=== PATIENT | female | born 1975 | race Caucasian/White ===

== ENCOUNTER 2022-01-16 10:25 | Emergency (ER) | payer MEDICAID, SELFPAY ==
[2022-01-16 10:32] VITALS: BP 118/74; PULSE 92; RESP 20; TEMP 36.4; O2SAT 96; BMI 26.5
[2022-01-16 11:05] VITALS: BP 133/82
--- NOTE | 2022-01-16 11:10 | ED_ITS ---
HPI - General Adult General Time Seen by Provider: 11:10 Date Seen: 01/16/22 Chief complaint: GI Bleed Stated complaint: Anal bleeding Time Seen by Provider: 01/16/22 11:07 Source: patient, RN notes reviewed and old records reviewed Mode of arrival: ambulatory Limitations: no limitations History of Present Illness HPI narrative: Brittanie is a 46-year-old female coming into the ER with some dark reddish to brownish blood with wiping. She thinks it might be vaginally but is not sure. She has had a history of GI bleeding twice. In January of 2021 she had a GI bleed at the site of her [place] 2 gastrojejunostomy, went to [place]. She reports she had a no other head GI bleed in May of 2021 and went to [place]. She states she almost for mom 1 of these GI bleeds. She has chronic abdominal pain, has not noticed any increase in abdominal pain. She is just noticed this with wiping a couple times today. She had not had a period for 4 years. No urinary symptoms otherwise outside of urinary frequency from her diuretic. She has not defecated today. This is been minimal bleeding with wiping, no excessive bleeding, no staining of underwear or anything at this time. 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 She is not on any blood thinners, states she has been told not to take any. In patients clinic records, menorrhagia with heavy irregular periods as noted. She also reportedly has a history of multiple leiomyomas. She has seen women's health before. However, she states she has not had a menstrual cycle in about 4 years. Note last imaging I see here in our records is a CT abdomen and pelvis with IV contrast dated 09/05/2021. The findings were postoperative changes of the stomach and pancreas, postoperative changes of a splenectomy and cholecystectomy. Minimal ascites, significantly decreased since the previous exam. This imaging was done for left upper quadrant pain. MD complaint: Bleeding, vaginal versus rectal? Onset (ago): hour(s) Related Data Home Medications Medication Instructions Recorded Confirmed aripiprazole 20 mg tablet (Abilify) 20 mg PO QDAY 12/16/21 01/16/22 furosemide 20 mg tablet (Lasix) 20 mg PO QDAY 12/16/21 01/16/22 gabapentin 300 mg capsule 600 mg PO TID 12/16/21 01/16/22 pantoprazole 40 mg tablet,delayed 40 mg PO QDAY 12/16/21 01/16/22 release (Protonix) temazepam 15 mg capsule 15 mg PO .hs 12/16/21 01/16/22 Abilify 01/16/22 Previous Rx's Medication Instructions Recorded spironolactone 50 mg tablet 100 mg PO QDAY #60 tabs 12/29/21 nuxahr-kfkxvjeu-pesalsk 3 cap PO TID #300 caps 01/06/22 12,000-38,000-60,000 unit capsule,delayed rel (Creon) hydrocodone 5 mg-acetaminophen 325 1 tab PO BID PRN pain #60 tabs 01/13/22 mg tablet Allergies Allergy/AdvReac Type Severity Reaction Status Date / Time aspirin Allergy Intermediate GI bleed Verified 01/16/22 10:43 lidocaine Allergy Mild itch Verified 01/16/22 10:43 melatonin Allergy Mild Unknown Verified 01/16/22 10:43 trazodone Allergy Mild Unknown Verified 01/16/22 10:43 Review of Systems Status of ROS: Reports: 10 or more systems reviewed and unremarkable except as noted in History and below [facility] Medical History (Updated 01/16/22 @ 14:23 by Mary Otero MD) Acute GI bleeding Chronic abdominal pain Cirrhosis Hepatitis C infection Pancreatic cancer Surgical History (Updated 01/16/22 @ 14:23 by Mary Otero MD) H/O hernia repair History of pancreatectomy History of tonsillectomy History of tubal ligation Hx of tympanostomy tubes Social History Smoking Status: Current every day smoker Do you use any of these nicotine containing products: E-Cigarettes and Vaping Products Second hand tobacco smoke exposure: No How often do you have a drink containing alcohol: never How often do you have six or more drinks on one occasion: Never AUDIT-C Alcohol total score: 0 Non-prescribed substance use: denies use Exam Const: Vital Signs, click to edit/add: Vital Signs - 24 hr 01/16/22 10:32 01/16/22 11:05 08/07/22 12:33 Temperature 97.5 F L Pulse Rate [Right Pulse Oximeter] 92 76 Respiratory Rate 20 Blood Pressure [Ri ght Upper Arm] 118/74 133/82 124/81 Pulse Oximetry 96 95 Oxygen Delivery Me thod Room Air Room Air 01/16/22 14:06 01/16/22 11:40 Temperature Pulse Rate [Right Pulse Oximeter] 84 Respiratory Rate Blood Pressure [Ri ght Upper Arm] 137/74 Pulse Oximetry 97 Oxygen Delivery Me thod Room Air Documenting provider has reviewed patient's vital signs: yes Common normals: no apparent distress, average body habitus, oriented x3, no limitations, healthy appearing and alert General appearance: cooperative and comfortable HENMT: Common normals: normocephalic, head/scalp atraumatic, hearing grossly normal bilaterally, external ears normal, external nose normal, nasal mucous membranes and turbinates normal, moist oral mucous membranes, oropharynx normal and dentition normal Head and scalp: normocephalic and atraumatic Nose: external nose normal and nasal mucous membranes and turbinates normal External ear: external ears normal Eye: Common normals: PERRL, EOMs intact bilaterally, conjunctivae normal and no scleral icterus Conjunctiva: conjunctiva(e) normal Pupil: PERRL Neck & C-Spine: Common normals: full ROM, no lymphadenopathy, supple, no meningeal signs, no JVD and thyroid normal Thyroid: thyroid normal Lymph: Lymphatic: no lymphadenopathy noted and no lymphedema noted Resp: Common normals: normal respiratory effort, no retractions, no use of accessory muscles and clear to auscultation bilaterally Auscultation: clear to auscultation bilaterally Cardio: Common normals: no JVD, regular rate, regular rhythm ([place] ectopy initially but then regular after), S1 normal heart sound, S2 normal heart sound, no gallops, no clicks, no murmurs and no rub Rate: regular rate Rhythm: regular rhythm ([place] ectopy initially but then regular after) Heart sounds: S1 normal and S2 normal GI: Common normals: Normal to inspection, nondistended, normoactive bowel sounds present, soft to palpation, non-tender, no hepatosplenomegaly and no masses Palpation: soft and no hepatosplenomegaly : Common normals: bimanual exam normal (Other than dark blood on gloved finger) External Female Exam: normal appearance of the urethra and abnormal introitus (Dark blood noted at vaginal introitus) Bimanual exam- vagina & uterus: normal bimanual exam (Other than dark blood on gloved finger) Other: Inspection of the anus reveals no abnormality. Digital rectal exam reveals no palpable mass, negative guaiac Extremity: Common normals: normal to inspection, full ROM, normal capillary refill, no joint enlargement, no clubbing, cyanosis or edema, no calf tenderness and no pedal edema Neuro: Common normals: oriented x3 Sensorium/orientation: alert Meningeal signs: no meningeal signs Speech: speech normal Gait (neuro): normal gait Course Course Hospital Course: Reviewed with patient that we will certainly be checking her hemoglobin. We have discussed that this source appears to be vaginal and we will be obtaining pelvic ultrasound to better differentiate any pathology. If the pelvic ultrasound is normal, will guide her to OB Gyne outpatient if she remains stable here. Otherwise given her cirrhosis, will be getting up-to-date blood work including hemoglobin, will do a type and screen. I will look at her PT and PTT to see how her coagulation function through the liver is. This is apparently a uterine bleeding and need to differentiate possible etiologies which includes further evaluation with an endometrial biopsy possibly at some point. Has not done emergently through the ER but will make sure that this patient has appropriate plan in place depending on what we find with her labs and ultrasound as well as her stability through time here. Reevaluation(s) Reevaluation #1: Have given patient a copy of the ultrasound report. Have discussed with her that there are endometrial changes that are concerning here. She most definitely will require Ob Gyne follow-up in an endometrial biopsy. She will see if she can get into her primary care provider Dr. Cortes or OB Gyne 1st. Reviewed with her that Dr. Cortes might actually do this procedure and would contact his office 1st. Time: 13:52 Vital Signs Vital signs: Initial Vital Signs Temperature 97.5 F L 01/16/22 10:32 Temperature Source Temporal Artery Scan 01/16/22 10:32 Pulse Rate 92 01/16/22 10:32 Respiratory Rate 20 01/16/22 10:32 Blood Pressure 118/74 01/16/22 10:32 Blood Pressure Mean 88 01/16/22 10:32 Blood Pressure Position Sitting 01/16/22 10:32 Pulse Oximetry 96 08/07/22 10:32 Oxygen Delivery Method 01/16/22 10:32 Vital Signs Temperature 97.5 F L 01/16/22 10:32 Pulse Rate 92 01/16/22 10:32 Respiratory Rate 20 01/16/22 10:32 Blood Pressure 118/74 01/16/22 10:32 Pulse Oximetry 96 01/16/22 10:32 Oxygen Delivery Method 01/16/22 10:32 Temperature 97.5 F L 01/16/22 10:32 Pulse Rate 84 01/16/22 14:06 Respiratory Rate 20 01/16/22 10:32 Blood Pressure 124/81 01/16/22 12:33 Pulse Oximetry 97 01/16/22 14:06 Oxygen Delivery Method 01/16/22 14:06 Medical Decision Making Lab Data Lab results reviewed: Yes I reviewed the patient's lab results Labs: Lab Results 01/16/22 01/16/22 01/16/22 Range/Units 11:20 11:40 11:40 WBC 13.03 H (4.50-11.00) K/uL RBC 3.90 L (4.00-5.20) m/uL Hgb 11.5 L (12.0-16.0) gm/dL Hct 35.1 (33.0-51.0) % MCV 90 (80-100) fL MCH 30 (26-34) pg MCHC 33 (32-36) gm/dL RDW Coeff of Fabio 14.8 (11.5-15.5) % Plt Count 391 (140-440) K/uL Neut % (Auto) 69.4 (42.0-72.0) % Lymph % (Auto) 21.6 (20-44) % Collier % (Auto) 7.3 (0.0-11.0) % Eos % (Auto) 1.2 (0.0-7.0) % Baso % (Auto) 0.3 (0.0-3.0) % Neut # (Auto) 9.00 H (1.7-7.0) K/uL Lymph # (Auto) 2.80 (0.90-2.90) K/uL Collier # (Auto) 1.00 H (0.00-0.90) K/UL Eos # (Auto) 0.20 (0.00-0.50) K/uL Baso # (Auto) 0.00 (0.00-0.30) K/uL Abs Immat Gran (auto) 0.02 (0.00-0.30) K/uL INR 1.00 (0.91-1.10) APTT 27 (23-33) Seconds Sodium (135-149) mmol/L Potassium (3.6-5.1) mmol/L Chloride (96-114) mmol/L Carbon Dioxide (20-32) mmol/L BUN (5-24) mg/dL Creatinine (0.5-1.5) mg/dL Estimated Creat Clear Estimated GFR ml/min Glucose (60-115) mg/dL Calcium (8.4-10.6) mg/dL Total Bilirubin (0.1-1.5) mg/dL AST (12-35) U/L ALT (4-35) U/L Alkaline Phosphatase (40-150) U/L Total Protein (6.0-8.3) g/dL Albumin (3.3-5.0) g/dL HCG, Qual (Negative) SARS-CoV-2 (PCR) Negative SARS-CoV-2 (Negative) Blood Type Antibody Screen 01/16/22 01/16/22 01/16/22 Range/Units 11:40 11:40 11:40 WBC (4.50-11.00) K/uL RBC (4.00-5.20) m/uL Hgb (12.0-16.0) gm/dL Hct (33.0-51.0) % MCV (80-100) fL MCH (26-34) pg MCHC (32-36) gm/dL RDW Coeff of Fabio (11.5-15.5) % Plt Count (140-440) K/uL Neut % (Auto) (42.0-72.0) % Lymph % (Auto) (20-44) % Collier % (Auto) (0.0-11.0) % Eos % (Auto) (0.0-7.0) % Baso % (Auto) (0.0-3.0) % Neut # (Auto) (1.7-7.0) K/uL Lymph # (Auto) (0.90-2.90) K/uL Collier # (Auto) (0.00-0.90) K/UL Eos # (Auto) (0.00-0.50) K/uL Baso # (Auto) (0.00-0.30) K/uL Abs Immat Gran (auto) (0.00-0.30) K/uL INR (0.91-1.10) APTT (23-33) Seconds Sodium 136 (135-149) mmol/L Potassium 3.7 (3.6-5.1) mmol/L Chloride 103 (96-114) mmol/L Carbon Dioxide 26 (20-32) mmol/L BUN 18 (5-24) mg/dL Creatinine 0.8 (0.5-1.5) mg/dL Estimated Creat Clear 68.76 Estimated GFR 91 ml/min Glucose 108 (60-115) mg/dL Calcium 8.8 (8.4-10.6) mg/dL Total Bilirubin 0.5 (0.1-1.5) mg/dL AST 34 (12-35) U/L ALT 28 (4-35) U/L Alkaline Phosphatase 168 H (40-150) U/L Total Protein 7.1 (6.0-8.3) g/dL Albumin 4.1 (3.3-5.0) g/dL HCG, Qual Negative (Negative) SARS-CoV-2 (PCR) (Negative) Blood Type O Positive Antibody Screen NEGATIVE Imaging Data US - abdomen: Attestation: I have reviewed the pertinent imaging results. Radiologist's impression: Patient: [facility] Facility:?[facility] Patient ID:?[id number] Site Patient ID:?[id number]. Site :?[id number] Study:?US Pelvis -01/16/2022 12:43:15 PM Ordering Physician:?Branden Hernandez Final Report: INDICATION: Postmenopausal bleeding. TECHNIQUE: Ultrasound pelvis transvaginal for better assessment or to better visualize the endometrium. Real-time sonographic images with spectral and color Doppler imaging of the ovaries were obtained. COMPARISON: None. FINDINGS: Uterus: The uterus was not measured. Fundal lesion measures 2.5 x 2.8 x 2.9 cm and anterior lesion measures 3 x 2.7 x 1.6 cm, likely sub serosal fibroids. Endometrium: Transvaginal imaging was performed to better evaluate the endometrium. Endometrial thickness measures 8 mm. The endometrium is heterogeneous and show cystic changes. Ovaries: The right ovary measures 2.2 x 1.4 x 1.3 cm and left ovary was not seen. No ovarian or adnexal masses. Normal arterial and venous blood flow in the right ovary. Cul-de-sac: No significant free fluid. IMPRESSION: 1. The endometrial stripe is abnormally thickened and heterogeneous with cystic changes. These changes can be the result of tamoxifen use, but could also indicate endometrial hyperplasia or malignancy. Consider correlation with direct endometrial sampling, if not already performed. 2. Normal right ovary. The left ovary was not seen. Dictated by Terrence Mcintosh MD @ 01/16/2022 1:37:10 PM (Electronic Signature) Discharge Plan Discharge Clinical Impression: Abnormal vaginal bleeding in postmenopausal patient Condition: Stable Instructions: Abnormal (Dysfunctional) Uterine Bleeding (ED) Additional Instructions: Need to talk to Dr. Cortes is office tomorrow to see if he does endometrial biopsy, if not, he will need to get scheduled with OB Gyne. You need to have an endometrial biopsy done. If her bleeding should start to become heavy, going to greater than a maxi pad an hour for greater than 2 hours, are becoming symptomatic due to heavy bleeding such is lightheadedness/shortness of breath, excessive weakness, do need to be re-evaluated. Activity Level: Activity as Tolerated Prescriptions: No Action Abilify gabapentin 300 mg capsule 600 mg PO TID aripiprazole [Abilify] 20 mg tablet 20 mg PO QDAY furosemide [Lasix] 20 mg tablet 20 mg PO QDAY Hold Instructions: hurt stomach per pt pantoprazole [Protonix] 40 mg tablet,delayed release (DR/EC) 40 mg PO QDAY temazepam 15 mg capsule 15 mg PO .hs spironolactone 50 mg tablet 100 mg PO QDAY Qty: 60 5RF Creon 12,000-38,000 -60,000 unit capsule,delayed release(DR/EC) 3 cap PO TID Qty: 300 10RF Rx Instructions: 2-3 tablets, administer with meals and/or snacks hydrocodone-acetaminophen 5-325 mg tablet 1 tab PO BID PRN (Reason: pain) Qty: 60 0RF Follow Up/Referrals: Efrain Cortes MD [Primary Care Provider] - Stand Alone Forms: [employer] Info Instructions
--- NOTE | 2022-01-16 11:23 | CRLHL7_ITS ---
For Patients: As a result of the Century Cures Act, medical imaging exams and procedure reports are released immediately into your electronic medical record. You may view this report before your referring provider. If you have questions, please contact your health care provider. INDICATION: Postmenopausal bleeding. TECHNIQUE: Ultrasound pelvis transvaginal for better assessment or to better visualize the endometrium. Real-time sonographic images with spectral and color Doppler imaging of the ovaries were obtained. COMPARISON: None. FINDINGS: Uterus: The uterus was not measured. Fundal lesion measures 2.5 x 2.8 x 2.9 cm and anterior lesion measures 3 x 2.7 x 1.6 cm, likely sub serosal fibroids. Endometrium: Transvaginal imaging was performed to better evaluate the endometrium. Endometrial thickness measures 8 mm. The endometrium is heterogeneous and show cystic changes. Ovaries: The right ovary measures 2.2 x 1.4 x 1.3 cm and left ovary was not seen. No ovarian or adnexal masses. Normal arterial and venous blood flow in the right ovary. Cul-de-sac: No significant free fluid. IMPRESSION: 1. The endometrial stripe is abnormally thickened and heterogeneous with cystic changes. These changes can be the result of tamoxifen use, but could also indicate endometrial hyperplasia or malignancy. Consider correlation with direct endometrial sampling, if not already performed. 2. Normal right ovary. The left ovary was not seen. Dictated by Terrence Mcintosh MD @ 01/16/2022 1:37:10 PM (Electronically Signed)
[2022-01-16 11:40] VITALS: BP 137/74
[2022-01-16 11:46] LABS: Basophils Percent Auto 0.3 % (0.0-3.0); Eosinophils Percent Auto 1.2 % (0.0-7.0); Hematocrit 35.1 % (33.0-51.0); Hemoglobin* 11.5 gm/dL (12.0-16.0); Immature Granulocytes Abs Auto 0.02 K/uL (0.00-0.30); Lymphocytes Percent Auto 21.6 % (20-44); Mean Corpuscular HGB Conc 33 gm/dL (32-36); Mean Corpuscular Hemoglobin 30 pg (26-34); Mean Corpuscular Volume 90 fL (80-100); Monocytes Percent Auto 7.3 % (0.0-11.0); Neutrophils Percent Auto 69.4 % (42.0-72.0); Platelet Count* 391 K/uL (140-440); RDW Coefficient of Variation % 14.8 % (11.5-15.5); White Blood Count* 13.03 K/uL (4.50-11.00)
[2022-01-16 11:48] LABS: Slide Review Reflex No
[2022-01-16 12:01] LABS: Albumin* 4.1 g/dL (3.3-5.0); Chloride* 103 mmol/L (96-114); Sodium* 136 mmol/L (135-149)
[2022-01-16 12:02] LABS: Potassium* 3.7 mmol/L (3.6-5.1); Prothrombin Time 13.6 Seconds
[2022-01-16 12:03] LABS: Partial Thromboplastin Time* 27 Seconds (23-33)
[2022-01-16 12:04] LABS: Alkaline Phosphatase* 168 U/L (40-150); Aspartate Amino Transferase* 34 U/L (12-35); Bilirubin Total* 0.5 mg/dL (0.1-1.5); Blood Urea Nitrogen* 18 mg/dL (5-24); Carbon Dioxide* 26 mmol/L (20-32); Creatinine* 0.8 mg/dL (0.5-1.5); Est. Creatinine Clearance* 68.76; Estimated Glomerular Filt Rate 91 ml/min; Glucose* 108 mg/dL (60-115); Total Protein* 7.1 g/dL (6.0-8.3)
[2022-01-16 12:05] LABS: Alanine Aminotransferase* 28 U/L (4-35); Calcium* 8.8 mg/dL (8.4-10.6)
--- NOTE | 2022-01-16 12:10 | ED.NURSE ---
Pt at ultrasound for exam.
[2022-01-16 12:16] LABS: HCG Qualitative Serum* Negative (Negative)
[2022-01-16 12:33] VITALS: BP 124/81; PULSE 76; O2SAT 95
--- NOTE | 2022-01-16 12:33 | ED.NURSE ---
Pt back from ultrasound exam.
[2022-01-16 12:40] LABS: SARS PCR* Negative SARS-CoV-2 (Negative)
--- NOTE | 2022-01-16 13:37 | ED.NURSE ---
Pt requesting IV removal, MD mcdonough. IV DC'd, catheter intact.
[2022-01-16 14:06] VITALS: PULSE 84; O2SAT 97
== END 2022-01-16 14:07 | disposition home or self-care (01) ==
PROVIDERS: Emergency Provider Family Medicine; PCP Family Medicine
DX: N95.0 Postmenopausal bleeding (principal)
CPT/HCPCS: 36415; 76830; 80053; 84703; 85025; 85610; 85730; 86850; 86900; 86901; 87635; 99284

== ENCOUNTER 2022-02-02 10:32 | Outpatient (CLI) | payer MEDICAID, SELFPAY ==
[2022-02-02 13:02] LABS: Chlamydia DNA Amplified* NOT DETECTED (No Detected); GC DNA Amplified* NOT DETECTED (No Detected)
[2022-02-02 13:09] LABS: Cholesterol* 193 mg/dL (90-199); Triglycerides* 83 mg/dL (40-149)
[2022-02-02 13:10] LABS: HDL Cholesterol* 57 mg/dL (>=50); LDL Cholesterol Calculated 119 mg/dL (<100)
[2022-02-02 13:41] LABS: Ferritin* 13.7 ng/mL (6.24-137.0)
[2022-02-02 13:48] LABS: HIV 1/2/P24 Combo Screen* Negative (Negative)
[2022-02-03 18:57] LABS: Follicle Stimulating Hormone 67.8 IU/L
== END 2022-02-02 10:33 | disposition home or self-care (01) ==
PROVIDERS: PCP Family Medicine; Visit Provider Obstetrics & Gynecology
DX: R53.83 Other fatigue (principal); N95.0 Postmenopausal bleeding; I10 Essential (primary) hypertension; Z11.3 Encounter for screening for infections with a predominantly sexual mode of transmission; Z13.6 Encounter for screening for cardiovascular disorders
CPT/HCPCS: 80061; 82728; 83001; 84443; 86703; 87491; 87591

== ENCOUNTER 2022-02-15 10:40 | Emergency (ER) | payer MEDICAID, SELFPAY ==
[2022-02-15 10:51] VITALS: BP 137/93; PULSE 117; RESP 18; TEMP 37.1; O2SAT 96; BMI 25.6
--- NOTE | 2022-02-15 11:39 | ED_ITS ---
HPI - GI Bleed General Chief complaint: GI Bleed Stated complaint: dark stools Time Seen by Provider: 02/15/22 11:24 History of Present Illness HPI Narrative: This 46-year-old female comes in reporting black tar E stools today. She states that she had some nausea and an episode of vomiting yesterday. She does not report any pain. She does not feel lightheaded or short of breath. She has a history of pancreas and liver problems and has chronic pancreatic discomfort. She also has a history of hepatic encephalopathy. She comes in with concern about this bleeding as she has had similar symptoms in the past. She is not on any anticoagulants. She is taking a proton pump inhibitor. She states that she has been having regular bowel movements and has been taking her medicines. She does not appear to have any confusion or sign of encephalopathy. Related Data Home Medications Medication Instructions Recorded Confirmed aripiprazole 20 mg tablet (Abilify) 20 mg PO QDAY 12/16/21 02/02/22 furosemide 20 mg tablet (Lasix) 20 mg PO QDAY 12/16/21 02/02/22 pantoprazole 40 mg tablet,delayed 40 mg PO QDAY 12/16/21 02/02/22 release (Protonix) temazepam 15 mg capsule 15 mg PO .hs 12/16/21 02/02/22 Abilify 01/16/22 02/02/22 Previous Rx's Medication Instructions Recorded spironolactone 50 mg tablet 100 mg PO QDAY #60 tabs 12/29/21 gabapentin 300 mg capsule 600 mg PO TID #180 caps 01/28/22 hydrocodone 5 mg-acetaminophen 325 1 tab PO BID PRN pain #60 tabs 02/08/22 mg tablet [id number] 3 cap PO TID #300 caps 02/08/22 12,000-38,000-60,000 unit capsule,delayed rel (Creon) Allergies Allergy/AdvReac Type Severity Reaction Status Date / Time aspirin Allergy Intermediate GI bleed Verified 02/02/22 09:41 lidocaine Allergy Mild burn and Verified 02/02/22 09:41 itch melatonin Allergy Unknown Unknown Verified 02/02/22 09:41 trazodone Allergy Unknown Unknown Verified 02/02/22 09:41 Review of Systems Status of ROS: Reports: 10 or more systems reviewed and unremarkable except as noted in History and below Narrative: Constitutional: No fevers, no weight gain or loss. Eyes: No discharge. No vision changes. HENT: No congestion, no sore throat, no ear pain. Cardiovascular: No chest pain, no palpitations. Respiratory: No shortness of breath, no wheezes, no cough. Gastrointestinal: Chronic upper and left upper abdominal pain related to chronic pancreatitis. She reports black tarry stools today. Genitourinary: No dysuria, no hematuria. Musculoskeletal: Normal range of motion. Skin: No rashes, no pruritis. Neurological: No dizziness, weakness, sensory change, speech change. Endo/Heme/Allergies: No bruising or bleeding. No polydipsia. Pysch: no suicidality, no insomnia. She reports anxiety about these current symptoms. All other systems reviewed and are negative. [facility] Medical History (Updated 02/15/22 @ 13:38 by Alfred Conklin MD) Acute GI bleeding Chronic abdominal pain Cirrhosis Hepatitis C infection History of adenomatous polyp of colon Pancreatic cancer Surgical History H/O hernia repair History of pancreatectomy History of pancreatic surgery (09/2019) History of tonsillectomy History of tubal ligation History of Whipple procedure (04/10/21) Hx of tympanostomy tubes Family History (Updated 02/02/22 @ 12:11 by Suzanna Allen MD) Brother Colon cancer, Onset Age: 20 Aunt Breast cancer Mother High blood pressure Other Diabetes Melanoma Social History Narrative: Does not drink alcohol Does not have regular exercise regimen 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 HEENT: Normocephalic, atraumatic. Neck: Normal range of motion. Nontender. Supple. Heart: Regular. No murmurs. Normal rate. Intact distal pulses. Lungs: Clear to auscultation. No chest discomfort. No wheezes, rhonchi, or rales. Abdomen: Normal bowel sounds. Diffuse tenderness in the upper abdomen. No rebound tenderness. Genitalia: Deferred. Back: No midline tenderness. Normal range of motion. Extremities: Normal range of motion. No injury. Skin: Intact. No rash. Warm. No erythema or pallor. Neurologic: No altered sensation. No weakness. Alert and oriented. Psychiatric: No suicidality. No anxiety or depression. No insomnia. Nursing notes and vitals signs are reviewed. Const: Vital Signs, click to edit/add: Vital Signs - 24 hr 02/15/22 10:51 Temperature 98.7 F Pulse Rate [Right Pulse Oximeter] 117 H Respiratory Rate 18 Blood Pressure [Ri ght Upper Arm] 137/93 H Pulse Oximetry 96 Oxygen Delivery Me thod Room Air Course Vital Signs Vital signs: Initial Vital Signs Temperature 98.7 F 02/15/22 10:51 Temperature Source Temporal Artery Scan 02/15/22 10:51 Pulse Rate 117 H 02/15/22 10:51 Pulse Rhythm 02/15/22 10:51 Respiratory Rate 18 02/15/22 10:51 Blood Pressure 137/93 H 02/15/22 10:51 Blood Pressure Mean 107 02/15/22 10:51 Blood Pressure Position Sitting 02/15/22 10:51 Pulse Oximetry 96 02/15/22 10:51 Oxygen Delivery Method 02/15/22 10:51 Vital Signs Temperature 98.7 F 02/15/22 10:51 Pulse Rate 117 H 02/15/22 10:51 Respiratory Rate 18 02/15/22 10:51 Blood Pressure 137/93 H 02/15/22 10:51 Pulse Oximetry 96 02/15/22 10:51 Oxygen Delivery Method 02/15/22 10:51 Temperature 98.7 F 02/15/22 10:51 Pulse Rate 117 H 02/15/22 10:51 Respiratory Rate 18 02/15/22 10:51 Blood Pressure 137/93 H 02/15/22 10:51 Pulse Oximetry 96 02/15/22 10:51 Oxygen Delivery Method 02/15/22 10:51 MDM - GI Bleed MDM Narrative Medical decision making narrative: This patient comes in with a couple episodes of black stools today. She has a history of GI bleed and is taking a proton pump inhibitor. She arrives with normal vital signs. Her abdominal exam also is rather negative except for some chronic left upper quadrant abdominal pain. I did discuss role of imaging and in a process of shared decision making this was declined for now. Lab results returned with reassuring results also. Her hemoglobin is 11.6. Her liver enzymes are improved compared to previous. Her lipase is in normal range. She is okay to return home and encouraged to follow-up with her primary physician for colonoscopy or flexible sigmoidoscopy. She states that she has had a colonoscopy in the past and does not report any abnormalities. Lab Data Labs: Lab Results 02/15/22 02/15/22 02/15/22 Range/Units 11:52 11:52 11:52 WBC 11.07 H (4.50-11.00) K/uL RBC 3.92 L (4.00-5.20) m/uL Hgb 11.6 L (12.0-16.0) gm/dL Hct 34.9 (33.0-51.0) % MCV 89 (80-100) fL MCH 30 (26-34) pg MCHC 33 (32-36) gm/dL RDW Coeff of Fabio 14.1 (11.5-15.5) % Plt Count 389 (140-440) K/uL Neut % (Auto) 69.7 (42.0-72.0) % Lymph % (Auto) 22.2 (20-44) % [place] % (Auto) 7.1 (0.0-11.0) % Eos % (Auto) 0.5 (0.0-7.0) % Baso % (Auto) 0.4 (0.0-3.0) % Neut # (Auto) 7.70 H (1.7-7.0) K/uL Lymph # (Auto) 2.50 (0.90-2.90) K/uL [place] # (Auto) 0.80 (0.00-0.90) K/UL Eos # (Auto) 0.10 (0.00-0.50) K/uL Baso # (Auto) 0.00 (0.00-0.30) K/uL Abs Immat Gran (auto) 0.01 (0.00-0.30) K/uL ESR 42 H (2-20) mm/hr INR (0.91-1.10) Sodium 134 L (135-149) mmol/L Potassium 3.9 (3.6-5.1) mmol/L Chloride 102 (96-114) mmol/L Carbon Dioxide 24 (20-32) mmol/L BUN 20 (5-24) mg/dL Creatinine 0.8 (0.5-1.5) mg/dL Estimated Creat Clear 68.76 Estimated GFR 91 ml/min Glucose 131 H (60-115) mg/dL Calcium 9.4 (8.4-10.6) mg/dL Total Bilirubin (0.1-1.5) mg/dL Direct Bilirubin (0.0-0.5) mg/dL AST (12-35) U/L ALT (4-35) U/L Alkaline Phosphatase (40-150) U/L Ammonia (13.1-30.0) umol/L Total Protein (6.0-8.3) g/dL Albumin (3.3-5.0) g/dL Lipase (23-300) U/L Urine Color (Yellow) Urine Appearance (Clear) Urine pH (5.0-8.5) Ur Specific [place] (1.000-1.030) Urine Protein (Negative) Urine Glucose (UA) (Negative) Urine Ketones (Negative) Urine Blood (Negative) Urine Nitrite (Negative) Urine Bilirubin (Negative) Urine Urobilinogen (0.2-1.0) Ur Leukocyte Esterase (Negative) Urine RBC (0-2) Urine WBC (0-5) Ur Squamous Epith Cells (None-Few) Urine Bacteria (None) 02/15/22 02/15/22 02/15/22 Range/Units 11:52 11:52 11:52 WBC (4.50-11.00) K/uL RBC (4.00-5.20) m/uL Hgb (12.0-16.0) gm/dL Hct (33.0-51.0) % MCV (80-100) fL MCH (26-34) pg MCHC (32-36) gm/dL RDW Coeff of Fabio (11.5-15.5) % Plt Count (140-440) K/uL Neut % (Auto) (42.0-72.0) % Lymph % (Auto) (20-44) % [place] % (Auto) (0.0-11.0) % Eos % (Auto) (0.0-7.0) % Baso % (Auto) (0.0-3.0) % Neut # (Auto) (1.7-7.0) K/uL Lymph # (Auto) (0.90-2.90) K/uL [place] # (Auto) (0.00-0.90) K/UL Eos # (Auto) (0.00-0.50) K/uL Baso # (Auto) (0.00-0.30) K/uL Abs Immat Gran (auto) (0.00-0.30) K/uL ESR (2-20) mm/hr INR 1.06 (0.91-1.10) Sodium (135-149) mmol/L Potassium (3.6-5.1) mmol/L Chloride (96-114) mmol/L Carbon Dioxide (20-32) mmol/L BUN (5-24) mg/dL Creatinine (0.5-1.5) mg/dL Estimated Creat Clear Estimated GFR ml/min Glucose (60-115) mg/dL Calcium (8.4-10.6) mg/dL Total Bilirubin 0.9 (0.1-1.5) mg/dL Direct Bilirubin 0.3 (0.0-0.5) mg/dL AST 36 H (12-35) U/L ALT 37 H (4-35) U/L Alkaline Phosphatase 174 H (40-150) U/L Ammonia 35.0 H (13.1-30.0) umol/L Total Protein 7.4 (6.0-8.3) g/dL Albumin 4.4 (3.3-5.0) g/dL Lipase 30 (23-300) U/L Urine Color (Yellow) Urine Appearance (Clear) Urine pH (5.0-8.5) Ur Specific [place] (1.000-1.030) Urine Protein (Negative) Urine Glucose (UA) (Negative) Urine Ketones (Negative) Urine Blood (Negative) Urine Nitrite (Negative) Urine Bilirubin (Negative) Urine Urobilinogen (0.2-1.0) Ur Leukocyte Esterase (Negative) Urine RBC (0-2) Urine WBC (0-5) Ur Squamous Epith Cells (None-Few) Urine Bacteria (None) 02/15/22 Range/Units 12:51 WBC (4.50-11.00) K/uL RBC (4.00-5.20) m/uL Hgb (12.0-16.0) gm/dL Hct (33.0-51.0) % MCV (80-100) fL MCH (26-34) pg MCHC (32-36) gm/dL RDW Coeff of Fabio (11.5-15.5) % Plt Count (140-440) K/uL Neut % (Auto) (42.0-72.0) % Lymph % (Auto) (20-44) % [place] % (Auto) (0.0-11.0) % Eos % (Auto) (0.0-7.0) % Baso % (Auto) (0.0-3.0) % Neut # (Auto) (1.7-7.0) K/uL Lymph # (Auto) (0.90-2.90) K/uL [place] # (Auto) (0.00-0.90) K/UL Eos # (Auto) (0.00-0.50) K/uL Baso # (Auto) (0.00-0.30) K/uL Abs Immat Gran (auto) (0.00-0.30) K/uL ESR (2-20) mm/hr INR (0.91-1.10) Sodium (135-149) mmol/L Potassium (3.6-5.1) mmol/L Chloride (96-114) mmol/L Carbon Dioxide (20-32) mmol/L BUN (5-24) mg/dL Creatinine (0.5-1.5) mg/dL Estimated Creat Clear Estimated GFR ml/min Glucose (60-115) mg/dL Calcium (8.4-10.6) mg/dL Total Bilirubin (0.1-1.5) mg/dL Direct Bilirubin (0.0-0.5) mg/dL AST (12-35) U/L ALT (4-35) U/L Alkaline Phosphatase (40-150) U/L Ammonia (13.1-30.0) umol/L Total Protein (6.0-8.3) g/dL Albumin (3.3-5.0) g/dL Lipase (23-300) U/L Urine Color Yellow (Yellow) Urine Appearance Cloudy A (Clear) Urine pH 5.5 (5.0-8.5) Ur Specific [place] 1.010 (1.000-1.030) Urine Protein Negative (Negative) Urine Glucose (UA) Negative (Negative) Urine Ketones Trace A (Negative) Urine Blood Trace-intact A (Negative) Urine Nitrite Negative (Negative) Urine Bilirubin Negative (Negative) Urine Urobilinogen 0.2 (0.2-1.0) Ur Leukocyte Esterase Negative (Negative) Urine RBC 0-2 (0-2) Urine WBC 0-2 (0-5) Ur Squamous Epith Cells Many A (None-Few) Urine Bacteria Few A (None) Discharge Plan Discharge Clinical Impression: Chronic abdominal pain, Upper gastrointestinal hemorrhage Patient Disposition: Home, Self-Care Condition: Stable Additional Instructions: Continue current medications. Return if persistent dark or red colored stools happen, especially if becoming lightheaded or short of breath. Follow-up with primary physician and recommend endoscopy, colonoscopy or flexible sigmoidoscopy. Prescriptions: No Action Abilify aripiprazole [Abilify] 20 mg tablet 20 mg PO QDAY furosemide [Lasix] 20 mg tablet 20 mg PO QDAY Hold Instructions: hurt stomach per pt pantoprazole [Protonix] 40 mg tablet,delayed release (DR/EC) 40 mg PO QDAY temazepam 15 mg capsule 15 mg PO .hs spironolactone 50 mg tablet 100 mg PO QDAY Qty: 60 5RF gabapentin 300 mg capsule 600 mg PO TID Qty: 180 5RF Creon 12,000-38,000 -60,000 unit capsule,delayed release(DR/EC) 3 cap PO TID Qty: 300 10RF Rx Instructions: 2-3 tablets, administer with meals and/or snacks hydrocodone-acetaminophen 5-325 mg tablet 1 tab PO BID PRN (Reason: pain) Qty: 60 0RF Follow Up/Referrals: Efrain Cortes MD [Primary Care Provider] - Stand Alone Forms: [facility]
[2022-02-15] MEDS: ONDANSETRON 2 MG/ML inj 4 MG IVP (12:02)
[2022-02-15 12:03] LABS: Basophils Percent Auto 0.4 % (0.0-3.0); Eosinophils Percent Auto 0.5 % (0.0-7.0); Hematocrit 34.9 % (33.0-51.0); Hemoglobin* 11.6 gm/dL (12.0-16.0); Immature Granulocytes Abs Auto 0.01 K/uL (0.00-0.30); Lymphocytes Percent Auto 22.2 % (20-44); Mean Corpuscular HGB Conc 33 gm/dL (32-36); Mean Corpuscular Hemoglobin 30 pg (26-34); Mean Corpuscular Volume 89 fL (80-100); Monocytes Percent Auto 7.1 % (0.0-11.0); Neutrophils Percent Auto 69.7 % (42.0-72.0); Platelet Count* 389 K/uL (140-440); RDW Coefficient of Variation % 14.1 % (11.5-15.5); Red Blood Count 3.92 m/uL (4.00-5.20); White Blood Count* 11.07 K/uL (4.50-11.00)
[2022-02-15] MEDS: 0.9 % SODIUM CHLORIDE 1000 ml 1,000 ML IV (12:03)
[2022-02-15] MEDS: PANTOPRAZOLE SODIUM 40 MG INJ IVP (12:04)
[2022-02-15 12:15] LABS: Slide Review Reflex No
[2022-02-15 12:22] LABS: Albumin* 4.4 g/dL (3.3-5.0); Chloride* 102 mmol/L (96-114); Sodium* 134 mmol/L (135-149)
[2022-02-15 12:23] LABS: INR 1.06 (0.91-1.10); Potassium* 3.9 mmol/L (3.6-5.1); Prothrombin Time 14.2 Seconds
[2022-02-15 12:25] LABS: Alanine Aminotransferase* 37 U/L (4-35); Alkaline Phosphatase* 174 U/L (40-150); Aspartate Amino Transferase* 36 U/L (12-35); Bilirubin Direct* 0.3 mg/dL (0.0-0.5); Bilirubin Total* 0.9 mg/dL (0.1-1.5); Creatinine* 0.8 mg/dL (0.5-1.5); Est. Creatinine Clearance* 68.76; Estimated Glomerular Filt Rate 91 ml/min; Lipase* 30 U/L (23-300); Total Protein* 7.4 g/dL (6.0-8.3)
[2022-02-15 12:26] LABS: Blood Urea Nitrogen* 20 mg/dL (5-24); Calcium* 9.4 mg/dL (8.4-10.6); Carbon Dioxide* 24 mmol/L (20-32); Glucose* 131 mg/dL (60-115)
--- NOTE | 2022-02-15 12:54 | ED.NURSE ---
Up to the bathroom to void and collected a urine sample. Is on an antibiotic. talked to Dr. Conklin about urine.
[2022-02-15 13:04] LABS: Erythrocyte SedimentationRate* 42 mm/hr (2-20)
--- NOTE | 2022-02-15 13:15 | ED.NURSE ---
unable to admin in AUG, Pt did receive nicotrol inhaler one dose.
[2022-02-15 13:19] LABS: Appearance Urine Cloudy (Clear); Bilirubin Urine Negative (Negative); Blood Urine Trace-intact (Negative); Color Urine Yellow (Yellow); Glucose Urine Negative (Negative); Ketones Urine Trace (Negative); Leukocyte Esterase Urine Negative (Negative); Nitrite Urine Negative (Negative); Protein Urine Negative (Negative); Urobilinogen Urine 0.2 (0.2-1.0); pH Urine 5.5 (5.0-8.5)
[2022-02-15 13:24] LABS: Bacteria Urine Few; RBC Urine 0-2 (0-2); Squamous Epithelial Cell Urine Many (None-Few); WBC Urine 0-2 (0-5)
[2022-02-15 13:30] VITALS: BP 130/90; PULSE 77; RESP 16; O2SAT 98
== END 2022-02-15 13:50 | disposition home or self-care (01) ==
PROVIDERS: Emergency Provider Emergency Medicine Emergency Medical Services; PCP Family Medicine
DX: G89.29 Other chronic pain (principal); R10.9 Unspecified abdominal pain; K92.2 Gastrointestinal hemorrhage, unspecified
CPT/HCPCS: 36415; 80048; 80076; 81001; 82140; 83690; 85025; 85610; 85651; 87086; 87186; 96361; 96374; 96375; 99284; 99285; C9113; J2405; J7030

== ENCOUNTER 2022-03-14 10:33 | Outpatient (CLI) | payer MEDICAID, SELFPAY ==
--- NOTE | 2022-03-14 11:00 | CRLHL7_ITS ---
For Patients: As a result of the Century Cures Act, medical imaging exams and procedure reports are released immediately into your electronic medical record. You may view this report before your referring provider. If you have questions, please contact your health care provider. Indication: Pancreatic cancer follow-up pain on Technique: Contrast CT chest abdomen and pelvis Comparison: CT chest abdomen and pelvis 05/26/2021 Findings: Normal caliber thoracic aorta. Heart size is normal. There is no pericardial effusion. No mediastinal or hilar adenopathy is seen. No pericardial effusion. There is a mild atelectasis. Tiny hypodense lesion in the peripheral right hepatic lobe series 2, image 126 not significantly changed. No biliary dilatation. no abdominal aortic aneurysm. Postsurgical changes of Whipple procedure. Resection of pancreatic head and pancreatic tail. The remainder of the pancreas appears unremarkable gastric antrectomy gastrojejunostomy appears intact. Cholecystectomy. Splenectomy. Similar appearance of the soft tissues about the proximal SMA and celiac axis overall this is unchanged in appearance. No adenopathy is seen Similar appearance of significantly heterogeneous appearance of the uterus likely related to myomatous uterus the urinary bladder is unremarkable. The bowel is unremarkable no obstruction. Kidneys are unremarkable nonobstructing left renal calculus. No suspicious bony lesions are seen Impression: 1. No findings for disease progression. Status post Whipple procedure. Similar appearances soft tissues about the proximal SMA and celiac axis overall unchanged from the prior studies. 2. Previous opacities in the lungs have cleared. No findings for metastatic disease within the chest. 3. Small lesion in the peripheral right hepatic lobe is unchanged.Small metastases is not included. Please note that all CT scans at this facility use dose modulation, iterative reconstruction, and/or weight-based dosing when appropriate to reduce radiation dose to as low as reasonably achievable. Dictated by Vandana Hansen MD @ 03/14/2022 12:14:41 PM (Electronically Signed)
== END 2022-03-14 10:34 | disposition home or self-care (01) ==
PROVIDERS: PCP Family Medicine; Visit Provider Internal Medicine Hematology & Oncology
DX: C25.0 Malignant neoplasm of head of pancreas (principal); K76.9 Liver disease, unspecified
CPT/HCPCS: 71260; 74177; Q9967

== ENCOUNTER 2022-04-22 14:24 | Outpatient (CLI) | payer MEDICAID, SELFPAY ==
[2022-04-22 20:16] LABS: Albumin* 4.9 g/dL (3.3-5.0); Chloride* 101 mmol/L (96-114); Sodium* 140 mmol/L (135-149)
[2022-04-22 20:17] LABS: Potassium* 5.3 mmol/L (3.6-5.1)
[2022-04-22 20:19] LABS: Alanine Aminotransferase* 30 U/L (4-35); Alkaline Phosphatase* 153 U/L (40-150); Aspartate Amino Transferase* 35 U/L (12-35); Bilirubin Total* 0.6 mg/dL (0.1-1.5); Blood Urea Nitrogen* 21 mg/dL (5-24); Calcium* 10.2 mg/dL (8.4-10.6); Carbon Dioxide* 27 mmol/L (20-32); Creatinine* 1.1 mg/dL (0.5-1.5); Estimated Glomerular Filt Rate 62 ml/min; Glucose* 118 mg/dL (60-115); Total Protein* 7.9 g/dL (6.0-8.3)
== END 2022-04-22 14:25 | disposition home or self-care (01) ==
PROVIDERS: PCP Family Medicine; Visit Provider Family Medicine
DX: R53.1 Weakness (principal)
CPT/HCPCS: 80053

== ENCOUNTER 2022-07-29 10:14 | Outpatient (CLI) | payer MEDICAID, SELFPAY ==
--- NOTE | 2022-07-29 10:45 | CRLHL7_ITS ---
For Patients: As a result of the Century Cures Act, medical imaging exams and procedure reports are released immediately into your electronic medical record. You may view this report before your referring provider. If you have questions, please contact your health care provider. BILATERAL DIGITAL SCREENING MAMMOGRAM WITH TOMOSYNTHESIS AND COMPUTER-AIDED DETECTION CLINICAL HISTORY: Routine screening exam. COMPARISON: 09/11/2020. TECHNIQUE: Digital mammogram in CC and MLO projections including computer-aided detection (CAD). Tomosynthesis utilized. BREAST COMPOSITION: The breasts are heterogeneously dense, which may obscure small masses. FINDINGS: RIGHT Breast: Focal asymmetric density upper outer quadrant 3 cm from the nipple. LEFT Breast: No suspicious findings. IMPRESSION: RIGHT breast asymmetry/mass. RECOMMENDATIONS: Additional mammographic views of the RIGHT breast including 3D spot compression CC/MLO. RIGHT breast ultrasound may also be required. BI-RADS Category 0: Incomplete: Need Additional Imaging Evaluation and/or Prior Mammograms for Comparison [facility] will contact the patient for follow-up. A lay language report of this examination will be provided to the patient. Dictated by Efrain Hall MD @ 07/29/2022 11:14:04 AM jj/Dictated by: Efrain Hall MD @ 07/29/2022 11:14:00 AM (Electronically Signed)
== END 2022-07-29 10:15 | disposition home or self-care (01) ==
LOC: MAMMO 10:14
PROVIDERS: PCP Family Medicine; Visit Provider Family Medicine
DX: Z12.31 Encounter for screening mammogram for malignant neoplasm of breast (principal); R92.2 Inconclusive mammogram
CPT/HCPCS: 77063; 77067

== ENCOUNTER 2022-08-01 08:29 | Outpatient (CLI) | payer MEDICAID, SELFPAY ==
--- NOTE | 2022-08-01 08:45 | CRLHL7_ITS ---
For Patients: As a result of the Cures Act, medical imaging exams and procedure reports are released immediately into your electronic medical record. You may view this report before your referring provider. If you have questions, please contact your health care provider. RIGHT DIAGNOSTIC MAMMOGRAM WITH COMPUTER-AIDED DETECTION AND TOMOSYNTHESIS CLINICAL HISTORY: RIGHT breast mass/asymmetry. COMPARISON: 07/29/2022. TECHNIQUE: Digital RIGHT mammogram in 2 projections. Computer-aided detection and tomosynthesis were used. Real-time ultrasound imaging of RIGHT breast with imaging documentation. BREAST COMPOSITION: The breasts are heterogeneously dense, which may obscure small masses FINDINGS: 3D spot-compression CC/MLO RIGHT breast mammogram images submitted. Decreased conspicuity of the previously noted asymmetric density. No architectural distortion or suspicious calcifications. Targeted RIGHT breast ultrasound performed in the upper outer quadrant 10 o`clock 3-4 cm from the nipple corresponding to the area of concern. Normal dense fibroglandular tissue is noted. No suspicious masses or fibrocystic change. IMPRESSION: Normal additional mammogram images RIGHT breast and normal targeted RIGHT breast ultrasound. No evidence of malignancy. RECOMMENDATIONS: Annual bilateral screening mammography. BI-RADS Category 2: Benign Results and recommendations discussed with the patient. A lay language report of this examination will be provided to the patient. Dictated by Efrain Hall MD @ 08/01/2022 11:35:09 AM/toni KERRY/Dictated by: Efrain Hall MD @ 08/01/2022 11:35:00 AM (Electronically Signed)
--- NOTE | 2022-08-01 09:15 | CRLHL7_ITS ---
For Patients: As a result of the Century Cures Act, medical imaging exams and procedure reports are released immediately into your electronic medical record. You may view this report before your referring provider. If you have questions, please contact your health care provider. PLEASE SEE RIGHT DIAGNOSTIC MAMMOGRAM OF SAME DAY. CRL:toni KERRY/Dictated by: Efrain Hall MD @ 08/01/2022 11:35:00 AM (Electronically Signed)
== END 2022-08-01 08:30 | disposition home or self-care (01) ==
PROVIDERS: PCP Family Medicine; Visit Provider Family Medicine
DX: N63.10 Unspecified lump in the right breast, unspecified quadrant (principal); R92.8 Other abnormal and inconclusive findings on diagnostic imaging of breast
CPT/HCPCS: 76642; 77065; G0279

== ENCOUNTER 2022-08-26 13:50 | Outpatient (CLI) | payer MEDICAID, SELFPAY | END 2022-08-26 13:51 | disposition home or self-care (01) | LOC: NFLDREF 13:52 | PROVIDERS: PCP Family Medicine; Visit Provider Family Medicine | DX: R73.9 Hyperglycemia, unspecified (principal); E11.9 Type 2 diabetes mellitus without complications | CPT/HCPCS: 80048 ==

== ENCOUNTER 2022-09-08 10:31 | Outpatient (CLI) | payer MEDICAID, SELFPAY ==
--- NOTE | 2022-09-08 11:00 | CRLHL7_ITS ---
For Patients: As a result of the Century Cures Act, medical imaging exams and procedure reports are released immediately into your electronic medical record. You may view this report before your referring provider. If you have questions, please contact your health care provider. INDICATION: Pancreatic cancer surveillance. Whipple`s procedure. Splenectomy. Cholecystectomy. TECHNIQUE: CT of the chest abdomen and pelvis. 65 cc nonionic [id number] administered. COMPARISON: March 14, 2022. FINDINGS: CT chest: Minor fibrosis or atelectasis right middle lobe of the lung. The lungs are otherwise clear. There are no pleural or pericardial effusions. No intrapulmonary nodules or masses. The trachea and mainstem bronchi are patent and clear. The included thyroid gland is unremarkable. The included breasts are within normal limits. Normal caliber thoracic aorta. CT of the abdomen and pelvis: Postsurgical change from a Whipple`s procedure. Distal pancreatectomy, splenectomy, and cholecystectomy. Gastrojejunostomy is patent. No ascites. No lymphadenopathy. No bowel obstruction ileus. The liver is negative for masses or biliary dilatation. Normal adrenal glands and kidneys except for a 2-3 mm nonobstructing stone superior posterior left kidney unchanged. Vascular calcification in the abdomen and pelvis both arterial and venous. Myomatous uterus. No adnexal mass. The urinary bladder is unremarkable. Degenerative disc disease at L5. No acute fractures. No evidence for lytic or metastatic blastic skeletal disease. IMPRESSION: 1. No acute cardiopulmonary process identified. No evidence for metastatic disease in the chest. 2. Postsurgical change in the abdomen. No evidence for recurrent or metastatic disease. 3. Stable tiny nonobstructing stone left kidney unchanged. 4. Myomatous uterus. Please note that all CT scans at this facility use dose modulation, iterative reconstruction, and/or weight-based dosing when appropriate to reduce radiation dose to as low as reasonably achievable. Dictated by Cedrick Walters MD @ 09/08/2022 8:36:36 PM (Electronically Signed)
== END 2022-09-08 10:32 | disposition home or self-care (01) ==
PROVIDERS: PCP Family Medicine; Visit Provider Internal Medicine Hematology & Oncology
DX: C25.0 Malignant neoplasm of head of pancreas (principal); N20.0 Calculus of kidney; D25.9 Leiomyoma of uterus, unspecified
CPT/HCPCS: 71260; 74177; Q9967

== ENCOUNTER 2022-09-21 12:05 | Emergency (ER) | payer MEDICAID, SELFPAY ==
[2022-09-21 12:14] VITALS: BP 110/72; PULSE 78; RESP 16; TEMP 36.9; O2SAT 96; BMI 23.8
[2022-09-21 12:51] LABS: Strep A DNA Probe* NOT DETECTED (Not Detectd)
[2022-09-21 13:02] LABS: PCR FLU A Negative PCR FLU A (Negative); PCR FLU B Negative PCR FLU B (Negative); PCR RSV Negative PCR RSV (Negative)
--- NOTE | 2022-09-21 13:11 | ED.GENADULT ---
HPI - General Adult General Time Seen by Provider: 13:11 Date Seen: 09/21/22 Chief complaint: Sore Throat Stated complaint: Fever, sore throat, headache Time Seen by Provider: 09/21/22 13:11 Source: patient and RN notes reviewed Mode of arrival: ambulatory Limitations: no limitations History of Present Illness HPI narrative: Patient is a 47-year-old female coming in with concern of upper respiratory symptoms. She has had nasal congestion, occasional ear pain, especially left, sore throat, cough that is sometimes productive of green sputum for about 4 days now. She has ran some fevers per report. No GI symptoms. She has not been evaluated for this. She does have a history of a Whipple for pancreatic cancer in September of 2019. She had a strep DNA and viral triple swab done on arrival appropriately by nursing staff. These are negative and I am able to discuss this with her. We discussed that this likely represents a viral syndrome. Did discuss doing further workup with a chest x-ray and a CBC to help me differentiate if there could be an early bacterial component. Reviewed with her that if there is any lung findings on examination would certainly recommend chest x-ray. She would like to forego the chest x-ray if her lungs sound clear. She would have the CBC done but would request I call her with results, wants to go home and rest. Reviewed with her that we do not typically do that but she overall seems stable. I do think that there is a good chance that the CBC will point more to a viral picture and thus certainly can call with results. Related Data Home Medications Medication Instructions Recorded Confirmed aripiprazole 20 mg tablet (Abilify) 20 mg PO QDAY 12/16/21 09/21/22 [id number]-coprvezb-[id number] 2 - 3 cap PO 6XD 04/22/22 09/21/22 12,000-38,000-60,000 unit capsule,delayed rel (Creon) temazepam 15 mg capsule 15 mg PO .hs PRN 04/22/22 09/21/22 fluoxetine 20 mg capsule 20 mg PO QDAY 07/01/22 09/21/22 Previous Rx's Medication Instructions Recorded gabapentin 300 mg capsule 600 mg PO TID #180 caps 01/28/22 furosemide 20 mg tablet (Lasix) 20 mg PO QDAY #30 tabs 04/25/22 spironolactone 50 mg tablet 100 mg PO QDAY #60 tabs 07/14/22 nicotine 14 mg/24 hr daily 1 patch transdermal QDAY #14 ea 09/08/22 transdermal patch nicotine 7 mg/24 hr daily 1 patch transdermal Q24H #30 ea 09/08/22 transdermal patch hydrocodone 5 mg-acetaminophen 325 1 tab PO TID PRN pain #90 tabs 09/13/22 mg tablet Allergies Allergy/AdvReac Type Severity Reaction Status Date / Time aspirin Allergy Intermediate GI bleed Verified 09/21/22 12:13 lidocaine Allergy Mild burn and Verified 09/21/22 12:13 itch melatonin Allergy Unknown Unknown Verified 09/21/22 12:13 trazodone Allergy Unknown Unknown Verified 09/21/22 12:13 Review of Systems Status of ROS: Reports: 6 or more systems reviewed and unremarkable except as noted in History and below [facility] Medical History Abdominal ascites ?R18.8 - Other ascites (ICD-10) Acute GI bleeding ?K92.2 - Gastrointestinal hemorrhage, unspecified (ICD-10) Alcohol dependence in remission ?F10.21 - Alcohol dependence, in remission (ICD-10) Anemia ?D64.9 - Anemia, unspecified (ICD-10) Anxiety ?F41.9 - Anxiety disorder, unspecified (ICD-10) Bipolar I disorder (01/16/18) ?F31.9 - Bipolar disorder, unspecified (ICD-10) Chronic abdominal pain ?R10.9 - Unspecified abdominal pain (ICD-10) ?G89.29 - Other chronic pain (ICD-10) Chronic dental pain ?K08.9 - Disorder of teeth and supporting structures, unspecified (ICD-10) ?G89.29 - Other chronic pain (ICD-10) Cirrhosis ?K74.60 - Unspecified cirrhosis of liver (ICD-10) Depression ?F32.A - Depression, unspecified (ICD-10) Dyslipidemia ?E78.5 - Hyperlipidemia, unspecified (ICD-10) Gastrointestinal hemorrhage ?K92.2 - Gastrointestinal hemorrhage, unspecified (ICD-10) Hepatic encephalopathy (04/04/21) ?K72.90 - Hepatic failure, unspecified without coma (ICD-10) Hepatitis C infection ?B19.20 - Unspecified viral hepatitis C without hepatic coma (ICD-10) History of adenomatous polyp of colon ?Z86.010 - Personal history of colonic polyps (ICD-10) Hypertension ?I10 - Essential (primary) hypertension (ICD-10) Infection due to severe acute respiratory syndrome coronavirus 2 (SARS-CoV-2) ?U07.1 - COVID-19 (ICD-10) Lymphedema ?I89.0 - Lymphedema, not elsewhere classified (ICD-10) Menorrhagia ?N92.0 - Excessive and frequent menstruation with regular cycle (ICD-10) Nicotine dependence ?F17.200 - Nicotine dependence, unspecified, uncomplicated (ICD-10) Pancreatic cancer ?C25.9 - Malignant neoplasm of pancreas, unspecified (ICD-10) Postmenopausal bleeding ?N95.0 - Postmenopausal bleeding (ICD-10) Posttraumatic stress disorder (06/21/16) ?F43.10 - Post-traumatic stress disorder, unspecified (ICD-10) Secondary thrombocytosis ?D75.838 - Other thrombocytosis (ICD-10) Surgical History H/O hernia repair ?Z98.890 - Other specified postprocedural states (ICD-10) ?Z87.19 - Personal history of other diseases of the digestive system (ICD-10) History of pancreatectomy ?Z90.410 - Acquired total absence of pancreas (ICD-10) History of pancreatic surgery (09/2019) ?Z98.890 - Other specified postprocedural states (ICD-10) History of tonsillectomy ?Z90.89 - Acquired absence of other organs (ICD-10) History of tubal ligation ?Z98.51 - Tubal ligation status (ICD-10) History of Whipple procedure (04/10/21) ?Z90.410 - Acquired total absence of pancreas (ICD-10) ?Z90.49 - Acquired absence of other specified parts of digestive tract (ICD-10) Hx of tympanostomy tubes ?Z98.890 - Other specified postprocedural states (ICD-10) Family History Brother Colon cancer, Onset Age: 20 Aunt Breast cancer Mother High blood pressure Other Diabetes Melanoma Social History Narrative: Does not drink alcohol Does not have regular exercise regimen 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, 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[employer], 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 Tobacco use- 10 cig/day, hx 30 pack years Smoking Status: Never smoker Do you use any of these nicotine containing products: Vaping Products Second hand tobacco smoke exposure: No How often do you have a drink containing alcohol: never How often do you have six or more drinks on one occasion: Never AUDIT-C Alcohol total score: 0 Non-prescribed substance use: denies use service: No Exam Const: Vital Signs, click to edit/add: Vital Signs - 24 hr 09/21/22 12:14 Temperature 98.4 F Pulse Rate [Pulse Oximeter] 78 Respiratory Rate 16 Blood Pressure [Ri ght Upper Arm] 110/72 Pulse Oximetry 96 Oxygen Delivery Me thod Room Air 47-year-old female is alert interactive no apparent distress, frail appearing but alert. Able to speak in complete sentences, no hoarseness. Pupils equal round reactive to light, sclera clear. TMs and canals normal, no evidence of infection. Oropharynx with upper denture, posterior pharynx and posterior soft palate without any visible abnormalities. Oral mucosa is well hydrated. Neck is supple, no cervical adenopathy or masses. Lungs are clear with good air entry, no wheezing, no crackles, no prolonged expiratory phase. CV regular rate and rhythm no murmur. Documenting provider has reviewed patient's vital signs: yes Course Reevaluation(s) Reevaluation #1: Nursing staff will call to let her know that she is anemic at 9.2, follow up in clinic to make sure that that is her normal baseline. At this time, would not recommend antibiotics but ongoing observation for probable viral upper respiratory infection. Time: 18:05 Vital Signs Vital signs: Initial Vital Signs Temperature 98.4 F 09/21/22 12:14 Temperature Source Temporal Artery Scan 09/21/22 12:14 Pulse Rate 78 09/21/22 12:14 Pulse Rhythm Regular 09/21/22 12:14 Pulse Strength 3+ Normal 09/21/22 12:14 Respiratory Rate 16 09/21/22 12:14 Blood Pressure 110/72 09/21/22 12:14 Blood Pressure Mean 84 09/21/22 12:14 Blood Pressure Position Sitting 09/21/22 12:14 Pulse Oximetry 96 09/21/22 12:14 Oxygen Delivery Method Room Air 09/21/22 12:14 Vital Signs Temperature 98.4 F 09/21/22 12:14 Pulse Rate 78 09/21/22 12:14 Respiratory Rate 16 09/21/22 12:14 Blood Pressure 110/72 09/21/22 12:14 Pulse Oximetry 96 09/21/22 12:14 Oxygen Delivery Method Room Air 09/21/22 12:14 Temperature 98.4 F 09/21/22 12:14 Pulse Rate 78 09/21/22 12:14 Respiratory Rate 16 09/21/22 12:14 Blood Pressure 110/72 09/21/22 12:14 Pulse Oximetry 96 09/21/22 12:14 Oxygen Delivery Method Room Air 09/21/22 12:14 Medical Decision Making Lab Data Lab results reviewed: Yes I reviewed the patient's lab results Labs: Lab Results 09/21/22 09/21/22 Range/Units 12:18 13:40 WBC 10.13 (4.50-11.00) K/uL RBC 3.34 L (4.00-5.20) m/uL Hgb 9.2 L (12.0-16.0) gm/dL Hct 29.4 L (33.0-51.0) % MCV 88 (80-100) fL MCH 28 (26-34) pg MCHC 31 L (32-36) gm/dL RDW Coeff of Fabio 13.1 (11.5-15.5) % Plt Count 436 (140-440) K/uL Neut % (Auto) 72.9 H (42.0-72.0) % Lymph % (Auto) 17.9 L (20-44) % [place] % (Auto) 7.4 (0.0-11.0) % Eos % (Auto) 0.6 (0.0-7.0) % Baso % (Auto) 0.3 (0.0-3.0) % Neut # (Auto) 7.40 H (1.7-7.0) K/uL Lymph # (Auto) 1.80 (0.90-2.90) K/uL [place] # (Auto) 0.70 (0.00-0.90) K/UL Eos # (Auto) 0.06 (0.00-0.50) K/uL Baso # (Auto) 0.03 (0.00-0.30) K/uL SARS-CoV-2 (PCR) Negative SARS-CoV-2 (Negative) Influenza Type A (PCR) Negative PCR FLU A (Negative) Influenza Type B (PCR) Negative PCR FLU B (Negative) RSV (PCR) Negative PCR RSV (Negative) Group A Strep DNA NOT DETECTED (Not Detectd) Discharge Plan Discharge Clinical Impression: Acute upper respiratory infection Patient Disposition: Home, Self-Care Condition: Stable Instructions: Upper Respiratory Infection (ED) Additional Instructions: Can use [id number] medicines as needed for cough and cold symptoms. We will call you with the CBC result when it is done. Will consider antibiotics based on this result. If this is normal, then this is likely a viral illness. Continue to watch for worsening with progressive symptoms, increased difficulty breathing or shortness of breath, worsening cough. Please seek re-evaluation if you are worsening at any point. Activity Level: Activity as Tolerated Discharge Diet: Regular Prescriptions: No Action Creon 12,000-38,000 -60,000 unit capsule,delayed release(DR/EC) 2 - 3 cap PO 6XD Rx Instructions: 2-3 tablets, administer with meals and/or snacks. Takes 2 with small meals and 3 with big meals fluoxetine 20 mg capsule 20 mg PO QDAY aripiprazole [Abilify] 20 mg tablet 20 mg PO QDAY gabapentin 300 mg capsule 600 mg PO TID Qty: 180 5RF temazepam 15 mg capsule 15 mg PO .hs PRN furosemide [Lasix] 20 mg tablet 20 mg PO QDAY Qty: 30 5RF spironolactone 50 mg tablet 100 mg PO QDAY Qty: 60 5RF nicotine 14 mg/24 hr patch 24 hour 1 patch transdermal QDAY Qty: 14 0RF nicotine 7 mg/24 hr patch 24 hour 1 patch transdermal Q24H Qty: 30 2RF hydrocodone-acetaminophen 5-325 mg tablet 1 tab PO TID PRN (Reason: pain) Qty: 90 0RF Rx Instructions: Must last a month Follow Up/Referrals: Efrain Cortes MD [Primary Care Provider] - Stand Alone Forms: [employer] Info Instructions
[2022-09-21 13:12] LABS: SARS PCR* Negative SARS-CoV-2 (Negative)
[2022-09-21 14:09] LABS: Basophils Absolute Auto 0.03 K/uL (0.00-0.30); Basophils Percent Auto 0.3 % (0.0-3.0); Eosinophils Absolute Auto 0.06 K/uL (0.00-0.50); Eosinophils Percent Auto 0.6 % (0.0-7.0); Hematocrit 29.4 % (33.0-51.0); Hemoglobin* 9.2 gm/dL (12.0-16.0); Immature Granulocytes Abs Auto 0.09 K/uL (0.00-0.30); Immature Granulocytes Pct Auto 0.9 %; Lymphocytes Percent Auto 17.9 % (20-44); Mean Corpuscular HGB Conc 31 gm/dL (32-36); Mean Corpuscular Hemoglobin 28 pg (26-34); Mean Corpuscular Volume 88 fL (80-100); Monocytes Percent Auto 7.4 % (0.0-11.0); Neutrophils Percent Auto 72.9 % (42.0-72.0); Platelet Count* 436 K/uL (140-440); RDW Coefficient of Variation % 13.1 % (11.5-15.5); Red Blood Count 3.34 m/uL (4.00-5.20); White Blood Count* 10.13 K/uL (4.50-11.00)
[2022-09-21 14:17] LABS: Slide Review Reflex No
== END 2022-09-21 13:51 | disposition home or self-care (01) ==
PROVIDERS: Emergency Provider Family Medicine; PCP Family Medicine
DX: Z20.822 Contact with and (suspected) exposure to COVID-19 (principal); J06.9 Acute upper respiratory infection, unspecified
CPT/HCPCS: 36415; 85025; 87631; 87651; 99283

== ENCOUNTER 2022-11-28 06:47 | Emergency (ER) | payer MEDICAID, SELFPAY ==
[2022-11-28 06:55] VITALS: BP 131/80; PULSE 89; RESP 18; TEMP 36.7; O2SAT 99; BMI 23.8
--- NOTE | 2022-11-28 07:30 | ED_ITS ---
HPI - General Adult General Chief complaint: Anxiety Stated complaint: bleeding and premenopausal Time Seen by Provider: 11/28/22 07:00 Source: patient Mode of arrival: ambulatory Limitations: no limitations History of Present Illness HPI narrative: 47-year-old female with a notable history of prior pancreatic cancer status post Whipple procedure presents to the emergency department with concerns for bleeding. She has a known history of severe GI bleed several years ago on after her Whipple procedure. She reports that she has had symptoms that her menstrual cycle was coming. She had breast tenderness for a couple of weeks and some mild uterine area cramping a couple of days ago. This morning, when she went to the bathroom to have a bowel movement she wiped and saw some blood. She wiped again with the [place] tissue on the rectum area and did not see any blood. She took another fresh tissue and white in the vaginal area and saw blood. She is quite confident that this is menstrual bleeding. She significant anxiety and she even admits to that. She insists on having a hemoglobin checked today to see if she is bleeding. I counseled her that this will not tell me if she is bleeding, direct visualization will tell me if she is bleeding. She denies any blood clots, her appetite has been normal. She is not dizzy, there is no lightheadedness. She does not take any anticoagulants. She was told in the past to come in right away if she has bleeding. It sounds as though she was told to come in if she has brisk rectal bleeding. She gets her menstrual periods irregularly. She does not follow-up with a record tabulating clerk. Past medical history is most notable for multiple psychiatric diagnoses, reported history of pancreatic cancer and Whipple procedure. Reports that she sees Oncology typical for care. Current medications are reviewed, she states that these are listed appropriately. Allergies are notable for the medications listed, aspirin not being a true allergy but causes GI bleeding and should be avoided. Related Data Home Medications Medication Instructions Recorded Confirmed aripiprazole 20 mg tablet (Abilify) 20 mg PO QDAY 12/16/21 09/21/22 zrfzrv-cumcurnm-uuaibvl 2 - 3 cap PO 6XD 04/22/22 09/21/22 12,000-38,000-60,000 unit capsule,delayed rel (Creon) temazepam 15 mg capsule 15 mg PO .hs PRN 04/22/22 09/21/22 fluoxetine 20 mg capsule 20 mg PO QDAY 07/01/22 09/21/22 Previous Rx's Medication Instructions Recorded furosemide 20 mg tablet (Lasix) 20 mg PO QDAY #30 tabs 04/25/22 spironolactone 50 mg tablet 100 mg (2 x 50 mg) PO QDAY #60 tabs 07/14/22 nicotine 14 mg/24 hr daily 1 patch transdermal QDAY #14 ea 09/08/22 transdermal patch nicotine 7 mg/24 hr daily 1 patch transdermal Q24H #30 ea 09/08/22 transdermal patch gabapentin 300 mg capsule 600 mg (2 x 300 mg) PO TID #180 10/18/22 caps hydrocodone 5 mg-acetaminophen 325 1 tab PO TID PRN pain #90 tabs 11/08/22 mg tablet Allergies Allergy/AdvReac Type Severity Reaction Status Date / Time aspirin Allergy Intermediate GI bleed Verified 11/28/22 06:57 lidocaine Allergy Mild burn and Verified 11/28/22 06:57 itch melatonin Allergy Unknown Unknown Verified 11/28/22 06:57 trazodone Allergy Unknown Unknown Verified 11/28/22 06:57 PFSH [facility] Medical History Nicotine dependence ?F17.200 - Nicotine dependence, unspecified, uncomplicated (ICD-10) Chronic dental pain ?K08.9 - Disorder of teeth and supporting structures, unspecified (ICD-10) ?G89.29 - Other chronic pain (ICD-10) Postmenopausal bleeding ?N95.0 - Postmenopausal bleeding (ICD-10) Secondary thrombocytosis ?D75.838 - Other thrombocytosis (ICD-10) Posttraumatic stress disorder (06/21/16) ?F43.10 - Post-traumatic stress disorder, unspecified (ICD-10) Menorrhagia ?N92.0 - Excessive and frequent menstruation with regular cycle (ICD-10) Lymphedema ?I89.0 - Lymphedema, not elsewhere classified (ICD-10) Infection due to severe acute respiratory syndrome coronavirus 2 (SARS-CoV-2) ?U07.1 - COVID-19 (ICD-10) Hypertension ?I10 - Essential (primary) hypertension (ICD-10) History of adenomatous polyp of colon ?Z86.010 - Personal history of colonic polyps (ICD-10) Hepatic encephalopathy (04/04/21) ?K72.90 - Hepatic failure, unspecified without coma (ICD-10) Gastrointestinal hemorrhage ?K92.2 - Gastrointestinal hemorrhage, unspecified (ICD-10) Dyslipidemia ?E78.5 - Hyperlipidemia, unspecified (ICD-10) Depression ?F32.A - Depression, unspecified (ICD-10) Bipolar I disorder (01/16/18) ?F31.9 - Bipolar disorder, unspecified (ICD-10) Anxiety ?F41.9 - Anxiety disorder, unspecified (ICD-10) Anemia ?D64.9 - Anemia, unspecified (ICD-10) Alcohol dependence in remission ?F10.21 - Alcohol dependence, in remission (ICD-10) Abdominal ascites ?R18.8 - Other ascites (ICD-10) Acute GI bleeding ?K92.2 - Gastrointestinal hemorrhage, unspecified (ICD-10) Hepatitis C infection ?B19.20 - Unspecified viral hepatitis C without hepatic coma (ICD-10) Pancreatic cancer ?C25.9 - Malignant neoplasm of pancreas, unspecified (ICD-10) Cirrhosis ?K74.60 - Unspecified cirrhosis of liver (ICD-10) Chronic abdominal pain ?R10.9 - Unspecified abdominal pain (ICD-10) ?G89.29 - Other chronic pain (ICD-10) Surgical History History of Whipple procedure (04/10/21) ?Z90.410 - Acquired total absence of pancreas (ICD-10) ?Z90.49 - Acquired absence of other specified parts of digestive tract (ICD- 10) History of pancreatic surgery (09/2019) ?Z98.890 - Other specified postprocedural states (ICD-10) History of pancreatectomy ?Z90.410 - Acquired total absence of pancreas (ICD-10) Hx of tympanostomy tubes ?Z98.890 - Other specified postprocedural states (ICD-10) H/O hernia repair ?Z98.890 - Other specified postprocedural states (ICD-10) ?Z87.19 - Personal history of other diseases of the digestive system (ICD-10) History of tonsillectomy ?Z90.89 - Acquired absence of other organs (ICD-10) History of tubal ligation ?Z98.51 - Tubal ligation status (ICD-10) Family History Brother Colon cancer, Onset Age: 20 Aunt Breast cancer Mother High blood pressure Other Diabetes Melanoma Social History Narrative: Does not drink alcohol Does not have regular exercise regimen 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, 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[employer], 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 Tobacco use- 10 cig/day, hx 30 pack years Smoking Status: Never smoker Do you use any of these nicotine containing products: Vaping Products Second hand tobacco smoke exposure: No How often do you have a drink containing alcohol: never How often do you have six or more drinks on one occasion: Never AUDIT-C Alcohol total score: 0 Non-prescribed substance use: denies use service: No Exam Const: Vital Signs, click to edit/add: Vital Signs - 24 hr 11/28/22 06:55 Temperature 98.1 F Pulse Rate [Right Pulse Oximeter] 89 Respiratory Rate 18 Blood Pressure [Ri ght Upper Arm] 131/80 Pulse Oximetry 99 Oxygen Delivery Me thod Room Air Documenting provider has reviewed patient's vital signs: yes Common normals: alert Orientation/consciousness: Yes awake Other: Limited insight, anxious but cooperative with exam. HENMT: Common normals: normocephalic Head and scalp: normocephalic Eye: Common normals: conjunctivae normal General eye: normal appearance of both eyes Conjunctiva: conjunctiva(e) normal Resp: Common normals: normal respiratory effort, no use of accessory muscles and clear to auscultation bilaterally Effort & inspection: able to speak in complete sentences Auscultation: clear to auscultation bilaterally Cardio: Common normals: regular rate, regular rhythm, S1 normal heart sound, S2 normal heart sound and no murmurs Rate: regular rate Rhythm: regular rhythm Heart sounds: S1 normal and S2 normal GI: Common normals: Normal to inspection, nondistended, normoactive bowel sounds present, soft to palpation, non-tender, no hepatosplenomegaly and no masses Palpation: soft and no hepatosplenomegaly Neuro: Common normals: moves all extremities and no focal motor deficits Sensorium/orientation: awake and alert Psych: Mood and affect: anxious Insight: fair Judgement: fair Skin: Common normals: no rashes or lesions noted General skin exam: no rashes or lesions noted Course Course Hospital Course: I tried counseling patient that hemoglobin does not necessarily reflect acute bleeding. She is confident that her source of bleeding is vaginal and not rectal based on our discussion. She does not think that she needs an exam to clarify this, I agree. I do visualize that there is no visible blood on her external clothing nor the bedding. I counseled her that the hemoglobin will not likely help me take better care of her and did review her previous hemoglobin values. There is no tachycardia, no hypotension, no signs of shock. It is quite clear that she will need the hemoglobin drawn to help her anxiety. I let her know I am happy to do this but it will not be a priority lab in it may take a couple of hours for us to finalize the results and she was understanding of this. I did let her know that if she leaves the ED to go out and smoke, she is considered discharged and no one will be following up with her regarding her lab results. She also verbalizes understanding and agreement to this. Reevaluation(s) Time of Reevaluation #1: 07:43 Reevaluation #1: Patient elected to leave against medical advice. With stable vital signs, this is within her right. Vital Signs Vital signs: Initial Vital Signs Temperature 98.1 F 11/28/22 06:55 Temperature Source Temporal Artery Scan 11/28/22 06:55 Pulse Rate 89 11/28/22 06:55 Respiratory Rate 18 11/28/22 06:55 Blood Pressure 131/80 11/28/22 06:55 Blood Pressure Mean 97 11/28/22 06:55 Blood Pressure Position Sitting 11/28/22 06:55 Pulse Oximetry 99 11/28/22 06:55 Oxygen Delivery Method Room Air 11/28/22 06:55 Vital Signs Temperature 98.1 F 11/28/22 06:55 Pulse Rate 89 11/28/22 06:55 Respiratory Rate 18 11/28/22 06:55 Blood Pressure 131/80 11/28/22 06:55 Pulse Oximetry 99 11/28/22 06:55 Oxygen Delivery Method Room Air 11/28/22 06:55 Temperature 98.1 F 11/28/22 06:55 Pulse Rate 89 11/28/22 06:55 Respiratory Rate 18 11/28/22 06:55 Blood Pressure 131/80 11/28/22 06:55 Pulse Oximetry 99 11/28/22 06:55 Oxygen Delivery Method Room Air 11/28/22 06:55 Medical Decision Making MDM Narrative Medical decision making narrative: Differential diagnosis including menstrual bleeding, gastrointestinal bleeding, urinary bleeding, skin source, factitious. Multiple other diagnoses considered as well. Recommended a period of observation, patient does seem to have the capacity tells if the bleeding restarts. Hemoglobin ordered per her request. Prior anemia noted from previous labs. Will need intervention if under 8, by calling her oncologist. Discharge Plan Discharge Clinical Impression: Irregular menstrual bleeding Patient Disposition: Left Against Medical Advice Condition: Stable Prescriptions: No Action Creon 12,000-38,000 -60,000 unit capsule,delayed release(DR/EC) 2 - 3 cap PO 6XD Rx Instructions: 2-3 tablets, administer with meals and/or snacks. Takes 2 with small meals and 3 with big meals fluoxetine 20 mg capsule 20 mg PO QDAY aripiprazole [Abilify] 20 mg tablet 20 mg PO QDAY temazepam 15 mg capsule 15 mg PO .hs PRN furosemide [Lasix] 20 mg tablet 20 mg PO QDAY Qty: 30 5RF spironolactone 50 mg tablet 100 mg PO QDAY Qty: 60 5RF nicotine 14 mg/24 hr patch 24 hour 1 patch transdermal QDAY Qty: 14 0RF nicotine 7 mg/24 hr patch 24 hour 1 patch transdermal Q24H Qty: 30 2RF gabapentin 300 mg capsule 600 mg PO TID Qty: 180 5RF hydrocodone-acetaminophen 5-325 mg tablet 1 tab PO TID PRN (Reason: pain) Qty: 90 0RF Rx Instructions: Must last a month Follow Up/Referrals: Efrain Cortes MD [Primary Care Provider] - Stand Alone Forms: [employer] Info Instructions
--- NOTE | 2022-11-28 07:47 | ED.NURSE ---
signed self AMA. did not want any further work up. dr campos informed.
== END 2022-11-28 07:45 | disposition left against medical advice (07) ==
PROVIDERS: Emergency Provider Family Medicine; PCP Family Medicine
DX: N92.6 Irregular menstruation, unspecified (principal)
CPT/HCPCS: 85018; 99282; 99283

== ENCOUNTER 2023-01-02 07:48 | Outpatient (CLI) | payer MEDICAID, SELFPAY | END 2023-01-02 07:49 | disposition home or self-care (01) | PROVIDERS: PCP Family Medicine; Visit Provider Family Medicine | DX: D64.9 Anemia, unspecified (principal); E78.5 Hyperlipidemia, unspecified; I10 Essential (primary) hypertension; F10.21 Alcohol dependence, in remission; K74.60 Unspecified cirrhosis of liver | CPT/HCPCS: 80048; 80076; 85025 ==

== ENCOUNTER 2023-01-30 15:17 | Outpatient (REF) | payer MEDICAID, SELFPAY ==
[2023-01-30 15:29] LABS: Basophils Absolute Auto 0.04 K/uL (0.00-0.30); Basophils Percent Auto 0.5 % (0.0-3.0); Eosinophils Absolute Auto 0.33 K/uL (0.00-0.50); Eosinophils Percent Auto 4.1 % (0.0-7.0); Hematocrit 36.4 % (33.0-51.0); Hemoglobin* 11.2 gm/dL (12.0-16.0); Immature Granulocytes Abs Auto 0.01 K/uL (0.00-0.30); Immature Granulocytes Pct Auto 0.1 %; Lymphocytes Absolute Auto 2.78 K/uL (0.90-2.90); Lymphocytes Percent Auto 34.9 % (20-44); Mean Corpuscular HGB Conc 31 gm/dL (32-36); Mean Corpuscular Hemoglobin 28 pg (26-34); Mean Corpuscular Volume 90 fL (80-100); Monocytes Percent Auto 9.2 % (0.0-11.0); Neutrophils Absolute Auto 4.07 K/uL (1.7-7.0); Neutrophils Percent Auto 51.2 % (42.0-72.0); Platelet Count* 507 K/uL (140-440); RDW Coefficient of Variation % 18.3 % (11.5-15.5); Red Blood Count 4.04 m/uL (4.00-5.20); White Blood Count* 7.96 K/uL (4.50-11.00)
[2023-01-30 15:33] LABS: Slide Review Reflex No
[2023-01-30 15:50] LABS: Iron* 113 ug/dL (37-170)
[2023-01-30 16:00] LABS: Percent Iron Saturation 27 % (20-50); Total Iron Binding Capacity 425 ug/dL (265-497)
[2023-01-30 16:26] LABS: Ferritin* 9.6 ng/mL (6.24-137.0)
== END 2023-01-30 15:18 | disposition home or self-care (01) ==
LOC: NPINS 15:17
PROVIDERS: PCP Family Medicine; Visit Provider Internal Medicine Hematology & Oncology
DX: I10 Essential (primary) hypertension (principal); E78.5 Hyperlipidemia, unspecified; D64.9 Anemia, unspecified; G89.29 Other chronic pain
CPT/HCPCS: 82728; 83540; 83550; 85025

== ENCOUNTER 2023-03-10 10:30 | Outpatient (RCR) | payer MEDICAID, SELFPAY ==
[2023-03-02 10:33] VITALS: BP 112/69; PULSE 67; RESP 16; TEMP 36.8; O2SAT 100
[2023-03-02] MEDS: IRON SUCROSE COMPLEX 200 MG in 0.9 % SODIUM CHLORIDE 100 ml 440 MG IVPB (11:21)
[2023-03-02] MEDS: SODIUM CHLORIDE 0.9 % (FLUSH) 10 ML SYRINGE IVF (11:33)
[2023-03-02] MEDS: 0.9 % SODIUM CHLORIDE 250 ml IV (11:33)
[2023-03-02 12:12] VITALS: BP 86/57; PULSE 68; RESP 16; O2SAT 98
[2023-03-02 12:13] VITALS: BP 100/67
[2023-03-02 12:18] VITALS: BP 103/65
[2023-03-07 10:30] VITALS: BP 116/82; PULSE 74; RESP 16; TEMP 36.2; O2SAT 98
[2023-03-07] MEDS: IRON SUCROSE COMPLEX 200 MG in 0.9 % SODIUM CHLORIDE 100 ml 440 MG IVPB (10:51)
[2023-03-07] MEDS: SODIUM CHLORIDE 0.9 % (FLUSH) 10 ML SYRINGE IVF (10:52)
[2023-03-07] MEDS: 0.9 % SODIUM CHLORIDE 250 ml IV (10:52)
[2023-03-07 11:10] VITALS: BP 118/78; PULSE 72; RESP 14; TEMP 36.7; O2SAT 98
[2023-03-10 10:15] VITALS: BP 109/69; PULSE 61; RESP 16; TEMP 36.2; O2SAT 99
[2023-03-10] MEDS: 0.9 % SODIUM CHLORIDE 250 ml IV (10:37)
[2023-03-10] MEDS: IRON SUCROSE COMPLEX 200 MG in 0.9 % SODIUM CHLORIDE 100 ml 440 MG IVPB (10:37)
[2023-03-10] MEDS: SODIUM CHLORIDE 0.9 % (FLUSH) 10 ML SYRINGE IVF (10:38)
[2023-03-10 11:01] VITALS: BP 106/69; PULSE 61; RESP 16; O2SAT 98
== END 2023-08-29 23:59 | disposition home or self-care (01) ==
LOC: CCIC 10:30
PROVIDERS: PCP Family Medicine; Visit Provider Clinical Nurse Specialist
DX: D50.9 Iron deficiency anemia, unspecified (principal)
CPT/HCPCS: 96365; 96374; J1756; J7050

== ENCOUNTER 2023-03-23 09:53 | Outpatient (CLI) | payer MEDICAID, SELFPAY ==
--- NOTE | 2023-02-28 14:46 | URNOTE ---
Request received for authorization for Iron Sucrose ([id number]). Prior authorization is not required as services are based on medical necessity and follow Medicare guidelines.
--- NOTE | 2023-03-23 11:00 | CRLHL7_ITS ---
For Patients: As a result of the Century Cures Act, medical imaging exams and procedure reports are released immediately into your electronic medical record. You may view this report before your referring provider. If you have questions, please contact your health care provider. Indication: Pancreatic cancer Technique: Postcontrast CT chest, abdomen and pelvis. 66 cc Isovue 370 intravenous contrast. Please note that all CT scans at this facility use dose modulation, iterative reconstruction, and/or weight-based dosing when appropriate to reduce radiation dose to as low as reasonably achievable. Comparison: 09/08/2022 Findings: In the chest, no enlarged mediastinal or hilar lymph nodes. No axillary adenopathy. Breast tissue appears normal. No pleural or pericardial effusion. Mild atelectasis within the anterior right lung base. No infiltrate. Mild dependent atelectasis in the lower lobes. No suspicious pulmonary nodule. In the abdomen, stable appearance of the liver with subtle focus of decreased attenuation within the dome of the liver measuring 7 millimeters, series 6, image 163. Postoperative changes of Whipple procedure. Intact gastrojejunostomy anastomosis. Stable subcentimeter upper abdominal lymph nodes. Strandy densities are present within mesenteric fat without organized abscess. Atherosclerotic changes. No vascular occlusion. No hydronephrosis. Adrenal glands are normal. A trace amount of fluid is present in the left upper quadrant. The spleen is absent. Stable stone within the left kidney measuring 4 millimeters. In the pelvis, leiomyomatous uterus again noted. Bladder is unremarkable. Mild pelvic free fluid is present. This has increased since the prior study. No mechanical bowel obstruction. No abdominal wall hernia. Degenerative disc disease and facet degeneration L5-S1. No fracture Impression: Stable postop changes of Whipple procedure with unchanged sub centimeter lymph nodes in the upper abdomen along with ill-defined areas of stranding in the mesenteric and retroperitoneal fat. Mildly increased free fluid within the pelvis noted. Stable subcentimeter density within the dome of the liver, indeterminate. Please note that all CT scans at this facility use dose modulation, iterative reconstruction, and/or weight-based dosing when appropriate to reduce radiation dose to as low as reasonably achievable. Dictated by Efrain Hall MD @ 03/24/2023 4:37:13 PM (Electronically Signed)
== END 2023-03-23 09:54 | disposition home or self-care (01) ==
LOC: CT 09:54
PROVIDERS: PCP Family Medicine; Visit Provider Internal Medicine Hematology & Oncology
DX: C25.0 Malignant neoplasm of head of pancreas (principal)
CPT/HCPCS: 71260; 74177; Q9967

== ENCOUNTER 2023-07-14 13:26 | Outpatient (CLI) | payer MEDICAID, SELFPAY | END 2023-07-14 13:27 | disposition home or self-care (01) | PROVIDERS: PCP Family Medicine; Visit Provider Family Medicine | DX: D64.9 Anemia, unspecified (principal); I10 Essential (primary) hypertension; K74.60 Unspecified cirrhosis of liver; E78.2 Mixed hyperlipidemia; B19.20 Unspecified viral hepatitis C without hepatic coma | CPT/HCPCS: 80053; 80061; 82728 ==

== ENCOUNTER 2023-09-26 09:36 | Outpatient (CLI) | payer MEDICAID, SELFPAY ==
--- NOTE | 2023-09-26 10:00 | CT_ITS ---
Patient: TAD SALINAS Facility:?[facility] Patient ID:?[id number] Site Patient ID:?[id number]. Site :?[id number] Study:?CT-Chest/Abd/Pelvis 69CC ISOVUE 370 AND WATER PREP-09/26/2023 11:04:09 AM Ordering Physician:?DR. SINGH Final Report: Indication: Pancreatic cancer surveillance Technique: CT Chest/Abd/Pelvis 69CC ISOVUE 370 AND WATER PREP Please note that all CT scans at this facility use dose modulation, iterative reconstruction, and/or weight-based dosing when appropriate to reduce radiation dose to as low as reasonably achievable. Comparison: 03/23/2023 Findings: In the chest, no suspicious pulmonary nodule is present. Chronic volume loss within the inferior right middle lobe. No pleural effusion. No adenopathy in the mediastinum, dillon or axilla. No vertebral body compression fracture. No suspicious osseous lesion. No suspicious pulmonary nodule. In the abdomen, similar appearance of the liver with a small focus of decreased attenuation within the periphery at the dome measuring 1 cm. Postop changes to the upper retroperitoneum of Whipple procedure. Stable appearance of the adjacent fat with ill-defined areas of stranding along with several subcentimeter lymph nodes. Atherosclerotic changes. Similar appearance of the splanchnic vasculature. Adrenal glands normal. No hydronephrosis. Spleen absent. Residual pancreatic tissue normal. No biliary obstruction. No bowel obstruction. In the pelvis, leiomyomatous uterus is present. Bladder normal. No diverticulitis. No pelvic sidewall or inguinal adenopathy. Stable ill-defined densities in the presacral fat. Degenerative disc disease L5-S1 with facet degeneration. Impression: Stable appearance of the postop changes to the upper retroperitoneum with stable ill-defined areas of stranding and subcentimeter lymph nodes. Stable 1 cm hypodensity within the periphery of the liver at the dome. Leiomyomatous uterus. No suspicious findings in the chest. Please note that all CT scans at this facility use dose modulation, iterative reconstruction, and/or weight-based dosing when appropriate to reduce radiation dose to as low as reasonably achievable. Dictated by Efrain Hall MD @ 09/26/2023 12:48:11 PM Signed by:?Efrain Hall MD @09/26/2023 12:48:11 PM (Electronic Signature)
[2023-09-26 10:59] LABS: Basophils Absolute Auto 0.05 K/uL (0.00-0.30); Basophils Percent Auto 0.6 % (0.0-3.0); Eosinophils Absolute Auto 0.23 K/uL (0.00-0.50); Eosinophils Percent Auto 2.6 % (0.0-7.0); Hemoglobin* 13.7 gm/dL (12.0-16.0); Immature Granulocytes Abs Auto 0.01 K/uL (0.00-0.30); Immature Granulocytes Pct Auto 0.1 %; Lymphocytes Absolute Auto 2.49 K/uL (0.90-2.90); Mean Corpuscular HGB Conc 32 gm/dL (32-36); Mean Corpuscular Hemoglobin 30 pg (26-34); Mean Corpuscular Volume 93 fL (80-100); Monocytes Percent Auto 6.6 % (0.0-11.0); Neutrophils Absolute Auto 5.53 K/uL (1.7-7.0); Neutrophils Percent Auto 62.1 % (42.0-72.0); Platelet Count* 351 K/uL (140-440); RDW Coefficient of Variation % 13.2 % (11.5-15.5); Red Blood Count 4.64 m/uL (4.00-5.20)
[2023-09-26 11:10] LABS: Albumin* 4.9 g/dL (3.3-5.0); Chloride* 101 mmol/L (96-114); Slide Review Reflex No; Sodium* 136 mmol/L (135-149)
[2023-09-26 11:11] LABS: Potassium* 4.4 mmol/L (3.6-5.1)
[2023-09-26 11:13] LABS: Alanine Aminotransferase* 28 U/L (4-35); Alkaline Phosphatase* 147 U/L (40-150); Anion Gap 7 mEq/L (7-15); Aspartate Amino Transferase* 34 U/L (12-35); Bilirubin Total* 1.1 mg/dL (0.1-1.5); Blood Urea Nitrogen* 20 mg/dL (5-24); Carbon Dioxide* 28 mmol/L (20-32); Creatinine* 0.9 mg/dL (0.5-1.5); Estimated Glomerular Filt Rate 78 ml/min; Glucose* 94 mg/dL (60-115); Total Protein* 8.7 g/dL (6.0-8.3)
[2023-09-26 11:14] LABS: Calcium* 9.7 mg/dL (8.4-10.6); Iron* 192 ug/dL (37-170)
== END 2023-09-26 09:37 | disposition home or self-care (01) ==
LOC: CT 09:38
PROVIDERS: PCP Family Medicine; Visit Provider Internal Medicine Hematology & Oncology
DX: C25.0 Malignant neoplasm of head of pancreas (principal); D25.9 Leiomyoma of uterus, unspecified
CPT/HCPCS: 36415; 71260; 74177; 80053; 82728; 83540; 85025; Q9967

== ENCOUNTER 2024-03-18 14:55 | Outpatient (CLI) | payer MEDICAID, SELFPAY ==
--- OUTSIDE RECORDS SUMMARY | 2024-03-18 15:01 | XMS_ITS | Encounter Summary ---
Author Organization [place] Address [facility] [place] [address] Care Team Providers Care Geothermal Production Manager Name Role Phone Dana Crook MD Unavailable [phone] No Ref-Primary, Physician Primary Care Provider Shabana Fu MD Primary Care Provider + [facility], Kimberly Saluda Primary Care Provider Reason for Visit * Reason Onset Date Comments Appointment 03/19/2019 left message for patient to call [phone] to schedule an appointment with the dept @ [facility] Encounter Details Date Type Department Care Team (Late st Contact Info) Description 03/19/2019 Telephone [facility] [address] [place] [address] Delia Kevin RN Appointment (left message for patient to call [phone] to schedule an appointment with the IR dept @ [facility]) Social History Tobacco Use Types Packs/Day Years Used Date Smoking Tobacco: Every Day Cigarettes 1 15 Smokeless Tobacco: Never Alcohol Use Standard Drinks/Week Comments No 0 (1 standard drink = 0.6 oz pur e alcohol) PHQ-2 Answer Date Recorded PHQ-2 Score 2 06/19/2018 Sex and Gender Information Value Date Recorded Sex Assigned at Not on file Gender Identity Not on file Sexual Orientation Not on file documented as of this encounter Plan of Treatment Not on file documented as of this encounter Visit Diagnoses Not on filedocumented in this encounter Additional Health Concerns Assessment Noted Time PHQ-9 Depression Total Score: 16 017 11:12 AM CDT documented as of this encounter Care Teams Geothermal Production Manager Relationship Specialty Start Date End Date No Ref-Primary, Physician PCP - General 03/12/19 03/21/19 Shabana Fu MD [facility] & [address] [address] PCP - General Family Practice 03/22/19 03/22/[address] [address] PCP - General 03/23/20 Dana Crook MD [address] [place] [address] Assigned PCP 03/24/16 09/07/19 documented as of this encounter
--- OUTSIDE RECORDS SUMMARY | 2024-03-18 15:01 | XMS_ITS | Clinical Summary ---
Author Organization [facility] Address [place], [place] [address] Care Team Providers Care Reinsurance Accountant Name Role Phone Regina Ynes Ludwig RN, BSN Unavailable [phone] Efrain Cortes MD Primary Care Provider + Allergies Active Allergy Reactions Criticality Noted Date Comments Lidocaine *Unknown Low 01/28/2021 *topical only*- causes pain and burning Melatonin Other - Describe In Comment Field 04/22/2016 Had nightmares Trazodone Other - Describe In Comment Field 04/22/2016 Nightmares Medications Medication Sig Dispensed Refills Start Date End Date Status potassium chloride (KLOR-CON 10; K-TAB) 10 mEq Controlled-Release tablet Take 20 mEq by mouth once daily. Takes at noon. Active hkhdjy-tejoygxl-fn ylase (Creon) 24,000-76,000 -120,000 unit cpDR Delayed-Release capsule Take 2-3 Capsules by mouth 3 times daily with meals. Dose = 2 capsules for regular size meal and 3 capsules for larger meal Active kfgvjr-zknyzbcx-ip ylase (Creon) 24,000-76,000 -120,000 unit cpDR Delayed-Release capsule Take 1-2 Capsules by mouth each time if needed for Supplement w/ Snack. Active naloxone (NARCAN) 4 mg/actuation nasal spray Inhale 1 Paron into affected nostril(s) each time if needed for Patient Diff To Arouse or Resp Rate < 8 / min. Additional doses may be given every 2 to 3 minutes until emergency medical assistance arrives. Active pantoprazole (PROTONIX) 40 mg delayed-release tablet Take 40 mg by mouth 2 times daily before meals. Active furosemide (LASIX) 20 mg tabletIndications: Cirrhosis of liver with ascites, unspecified hepatic cirrhosis type (HC) Take 2 Tablets (40 mg) by mouth every morning. 60 Tablet 05/02/2021 Active lactulose 10 gram/15 mL solutionIndication s:Cirrhosis of liver with ascites, unspecified hepatic cirrhosis type (HC) Take 45 mL (30 g) by mouth 4 times daily. 4800 mL 3 05/02/2021 Active spironolactone (ALDACTONE) 50 mg tabletIndications: Cirrhosis of liver with ascites, unspecified hepatic cirrhosis type (HC) Take 2 Tablets (100 mg) by mouth once daily. 60 Tablet 3 05/02/2021 Active OLANzapine (ZYPREXA) 20 mg tabletIndications: Bipolar 1 disorder (HC) Take 1 Tablet (20 mg) by mouth at bedtime. 0 05/06/2021 Active polyethylene glycol (MIRALAX; GLYCOLAX) 17 g powder for solutionIndication s:Bipolar 1 disorder (HC) Mix 17 g (1 Packet) in liquid then take by mouth 2 times daily. 0 05/06/2021 Active Additional Information Patient taking differently:1 Packet OralBID PRN, Constipation, Reported on 05/20/2021 rifAXIMin (XIFAXAN) 550 mg tabletIndications: Cirrhosis of liver with ascites, unspecified hepatic cirrhosis type (HC) Take 1 Tablet (550 mg) by mouth 2 times daily. 0 05/06/2021 Active hydrOXYzine pamoate (VISTARIL) 50 mg capsuleIndications :Bipolar 1 disorder (HC) Take 1 Capsule (50 mg) by mouth at bedtime if needed for Anxiety. 30 Capsule 05/08/2021 Active gabapentin (NEURONTIN) 300 mg capsule Take 300 mg by mouth. Take one capsule daily at bedtime for 7 days, then take one capsule two time daily. Active metroNIDAZOLE (FLAGYL) 500 mg tabletIndications: ABDOMEN/PELVIS INFECTION Take 1 Tablet (500 mg) by mouth 2 times daily. 14 Tablet 05/22/2021 Active Midodrine HCl 10 mg tabletIndications: Altered mental status, unspecified altered mental status type,Other ascites,Left lower lobe pulmonary infiltrate Take 1 Tablet (10 mg) by mouth Three times daily at 8 AM, 12 PM, and 4 PM. 30 Tablet 1 05/22/2021 Active cefdinir (OMNICEF) 300 mg capsuleIndications :Left lower lobe pulmonary infiltrate Take 1 Capsule (300 mg) by mouth 2 times daily. 14 Capsule 05/22/2021 Active acetaminophen (TYLENOL) 325 mg tabletIndications: Chronic bilateral low back pain without sciatica Take 2 Tablets (650 mg) by mouth every 6 hours if needed for Headache or Pain (For mild pain.). Max acetaminophen dose: 4000mg in 24 hrs. 100 Tablet 05/22/2021 Active OLANzapine (ZYPREXA, FILM COATED TABLET,) 10 mg tabletIndications: Borderline personality disorder (HC) Take 1 Tablet (10 mg) by mouth every morning. 30 Tablet 5 05/23/2021 Active Active Problems Problem Noted Date Diagnosed Date Chronic anemia 05/20/2021 Pneumonia due to COVID-19 virus 05/20/2021 Drug overdose, accidental or unintentional, initial encounter 05/20/2021 History of Whipple procedure 04/10/2021 History of portal hypertension 04/10/2021 History of ascites 04/10/2021 Cirrhosis of liver with ascites 04/10/2021 Acute hepatic encephalopathy 04/10/2021 History of methamphetamine abuse 09/27/2019 Pancreatic adenocarcinoma 09/26/2019 Leg edema 08/21/2018 Family history of melanoma 01/16/2018 Hypertension 01/16/2018 Hyperlipidemia 01/16/2018 Bipolar 1 disorder 01/16/2018 Varicose veins of both lower extremities with pa in 01/16/2018 Borderline personality disorder 10/17/2017 Opioid use disorder, severe, in early remission, on maintenance therapy 10/17/2017 History of heroin abuse 03/27/2017 Panic disorder without agoraphobia with mild caeves ic attacks 06/29/2016 PTSD (post-traumatic stress disorder) 06/21/2016 Low back pain without sciatica 05/10/2016 Hepatitis C virus infection 05/06/2016 Methadone maintenance therapy patient Resolved Problems Problem Noted Date Diagnosed Date Resolved Date Hypernatremia 04/10/2021 05/20/2021 Anemia, normocytic normochromic 04/05/2021 05/20/2021 Acute postoperative abdominal pain 05/20/2021 Immunizations Name Administration Dates Next Due HIB PRP-OMP (PedvaxHIB) 10/11/2019 Influenza Virus, Unspecified 03/21/2018 Influenza, IIV3 (Age >=3 years) 04/22/2016 Influenza, IIV4 03/31/2019 MENINGOCOCCAL VACCINE 2 VIAL 2MO-55YO (MENVEO) 0 10/11/2019 Meningococcal B 10/11/2019 Pneumococcal conj 13-Valent (Prevnar 13) 020 Tdap 02/06/2018 Family History Medical History Relation Name Comments No Known Problems Father does not k now bio dad well HIV Half-Brother 1 Cancer-colon Half-Brother 2 Cancer-breast Maternal Aunt 1 Cancer-colon Maternal Aunt 2 Squamous cell carcinoma Mother Lung cancer Paternal Grandfather Relation Name Status Comments Father Other Half-Brother 1 Half-Brother 2 Maternal Aunt 1 Maternal Aunt 2 Mother Alive Paternal Grandfather Social History Tobacco Use Types Packs/Day Years Used Date Smoking Tobacco: Every Day Cigarettes 0.5 35.6 Started: 08/21/1988 Smokeless Tobacco: Never Tobacco Cessation:Counseling Given: Yes Alcohol Use Standard Drinks/Week Comments Not Currently 0 (1 standard drink = 0.6 oz pur e alcohol) alcoholism in remission PHQ-2 Answer Date Recorded PHQ-2 TOTAL SCORE 4 04/04/2021 Social Connections Answer Date Recorded Frequency of Communication with Friends and Fami ly Not on file 06/02/2021 Alcohol Use Answer Date Recorded How often do you have a drink containing alcohol ? 0 04/04/2021 How many drinks containing a lcohol do you have on a typical day when you are drinking? 0 04/04/2021 How often do you have five or more drinks on one occasion? 0 04/04/2021 Financial Resource Strain Answer Date R ecorded Difficulty of Paying Living Expenses Not on file 06/02/2021 Difficulty of Paying Living Expenses Not on file 06/02/2021 Sex and Gender Information Value Date Recorded Sex Assigned at Not on file Gender Identity Not on file Sexual Orientation Not on file Obstetrics History Last Filed Vital Signs Vital Sign Reading Time Taken Comments Blood Pressure 122/95 05/22/2021 4:50 PM TEACHER AIDE CLERICAL Pulse 96 05/22/2021 4:50 PM TEACHER AIDE CLERICAL Temperature 37.4 ??C (99.4 ??F) 05/22/2021 4:50 PM CS T Respiratory Rate 20 05/22/2021 4:50 PM TEACHER AIDE CLERICAL Oxygen Saturation 98% 05/22/2021 4:50 PM TEACHER AIDE CLERICAL Inhaled Oxygen Concentration - - Weight 52.3 kg (115 lb 3.2 oz) 05/20/2021 8:26 P M TEACHER AIDE CLERICAL Height 157.5 cm (5' 2) 05/20/2021 8:26 PM TEACHER AIDE CLERICAL Body Mass Index 21.07 05/20/2021 8:26 PM TEACHER AIDE CLERICAL Plan of Treatment Health Maintenance Due Date Last Done Comments HIV for age 15-65 1989 Colonoscopy through age 75 2019 Mammogram for age 45-75 2019 BMI (ht and wt on same day) for age 18+ 09/08/2020 09/09/2019, 10/05/2018, 08/21/2018, Additional history exists Depression screening for age 12+ 04/03/2022 04/03/2021, 10/29/2018, 10/05/2018, Additional history exists COVID-19 vaccine series (2023- season) 2024 Influenza for age 9-49 02/11/2024 9, 03/21/2018, 04/22/2016 Pap test for age 21-65 02/02/2025 2, 02/02/2022, 08/31/2016 ([facility]) Lipids for age 45-75 04/06/2026 04/06/2021, 05/07/2018, 08/07/2017 Tetanus booster 02/07/2028 02/06/2018 Hepatitis C screening for age 18-79 Completed 08/10/2017, 08/10/2017, 08/07/2017 Tdap Completed 02/06/2018 Pneumococcal series for age 6-64 Aged Out 10/11/2019 No longer eligible based on patient's age to complete this topic Procedures Procedure Name Priority Date/Time Associated Diagnosis Comments JACKHAMMER OPERATOR THIN PREP PAP SCREEN IMAGED Routine 02/02/2022 10:30 AM CDT LIPID PANEL Timed 04/06/2021 5:51 AM CDT ANTI HCV Routine 08/10/2017 2:01 PM TEACHER AIDE CLERICAL Hepatitis C virus infection without hepatic coma, unspecified chronicity from Last 3 Months or Most Recently Relevant to Health Maintenance Results * JACKHAMMER OPERATOR THIN PREP PAP SCREEN IMAGED (02/02/2022 10:30 AM CDT) Case Report Gynecologic Cytology Report ? Case: [id number] ? Authorizing Provider: ??Suzanna Allen MD ?Collected: ? 02/02/2022 1030 ? Ordering Location: ? [facility] ?Received: ?02/02/2022 1639 ? First Screen: ?Baccam, Minie ? Pathologist: ? Perez Khanna ? Meenakshi, ? Specimen: ?JACKHAMMER OPERATOR ThinPrep Vial Screening, Cervical ? 02/04/2022 12:24 PM CDT [facility] INTERPRETATION/ RESULT NEGATIVE FOR INTRAEPITHELIAL LESION OR MALIGNANCY (NIL) (none) 02/04/2022 12:24 PM CDT [facility] R NON-NEOPLASTIC FINDING(S) Reactive cellular changes associated with inflammation/repa ir 02/04/2022 12:24 PM CDT [facility] SPECIMEN ADEQUACY Satisfactory for evaluation Endocervical component present 02/04/2022 12:24 PM CDT [facility] HPV REQUEST HPV and PAP 02/04/2022 12:24 PM CDT [facility] Abnormal Pap or [place] Bx in last 5 years 02/04/2022 12:24 PM T [facility] Comment:unknown Menstrual Status Postmenopausal 02/04/2022 12:24 PM T [facility] [place] Bx Done Today Yes 02/04/2022 12:24 PM CDT [facility] Additional Information 02/04/2022 12:24 PM T [facility] Comment: Interpreted at [facility] - [address], [place] [address] Automated Review Successful 02/04/2022 12:24 PM [facility] Comment:Specimen processed s uccessfully by automated dragline operator helper device, ThinPrep Imaging System, [employer] ANCILLARY TESTING JACKHAMMER OPERATOR HPV Ordered, Please see separate report 02/04/2022 12:24 PM T [facility] Note The pap test is a screening technique, not a diagnostic procedure. It is used primarily to screen for squamous cancers and precursor lesions. Published studies have shown that it is subject to both false negative and false positive results. The pap test should not be used as the sole means to diagnose or exclude pre-malignant and malignant lesions. 02/04/2022 12:24 PM T [facility] Other (Cervical) 02/02/2022 10:30 AM CDT 02/02/2022 4:39 PM CDT Suzanna Allen MD PATHOLOGY/CYTOLOGY [facility] [address] [place] [address], [place] * LIPID PANEL (04/06/2021 5:51 AM CDT) CHOLESTEROL,TOTAL 121 100 - 199 mg/dL 04/06/2021 6:51 AM CDT [facility] TRIGLYCERIDES 30 <150 mg/dL 04/06/2021 6:51 AM CDT [facility] HDL CHOLESTEROL 47 >40 mg/dL 6:51 AM CDT [facility] NON-HDL CHOLESTEROL 74 <145 mg/dl 04/06/2021 6:51 AM CDT [facility] CHOL/HDL RATIO 2.57 <4.50 04/06/2021 6:51 AM CDT [facility] LDL CHOLESTEROL 68 <=130 mg/dL 04/06/2021 6:51 AM CDT [facility] VLDL CHOLESTEROL 6 <=30 mg/dL 04/06/20 6:51 AM CDT [facility] PROVIDER ORDERED STATUS RANDOM 04/06/2021 6:51 AM CDT [facility] Blood BLOOD SPECIMEN / Unknown Venipuncture / Unknown 04/06/2021 5:51 AM CDT 04/06/2021 6:24 AM CDT Adi Hardy MD CHEMISTRY [facility] [address] [facility] [address] * (ABNORMAL) ANTI HCV (08/10/2017 2:01 PM TEACHER AIDE CLERICAL) HEPATITIS C ANTIBODY Reactive, Preliminary Positive(A) Non-React stephen 08/11/2017 7:42 AM TEACHER AIDE CLERICAL [facility] Blood BLOOD SPECIMEN / Unknown Venipuncture / Unknown 08/10/2017 2:01 PM TEACHER AIDE CLERICAL 08/10/2017 2:01 PM TEACHER AIDE CLERICAL [facility]ative [facility] - 08/11/2017 7:42 AM TEACHER AIDE CLERICAL Presumptive evidence of antibodies to HCV. Reflexed to HCV RNA Quant (See separate report). Suzy Chua MD SEND OUTS [facility] [address] [place] [address], from Last 3 Months or Most Recently Relevant to Health Maintenance Advance Directives * Full Code (Latest Code Status on File) Date Activated Date Inactivated Comments 05/21/2021 1:34 PM 05/22/2021 9:02 PM Question Answer Comments Code Status Discussion: Reviewed Preferences * Full Code Date Activated Date Inactivated Comments 05/20/2021 7:21 PM 05/21/2021 1:34 PM Question Answer Comments Code Status Discussion: Unable to Assess Preferences, Provider to review later * Full Code Date Activated Date Inactivated Comments 04/04/2021 7:17 PM 05/08/2021 3:12 PM Question Answer Comments Code Status Discussion: Per Existing Order * Full Code Date Activated Date Inactivated Comments 09/26/2019 6:01 AM 10/11/2019 6:52 PM Care Teams Reinsurance Accountant Relationship Specialty Start Date End Date Efrain Cortes MD [address] [place] [address] PCP - General Family Practice 10/04/19October, Ynes Ludwig RN, BSN [address] [address] Cancer Nurse Coordinator Oncology 03/14/19
--- OUTSIDE RECORDS SUMMARY | 2024-03-18 15:01 | XMS_ITS | Encounter Summary ---
Author Organization [place] Address [facility] [place] [address] Care Team Providers Care Small Equipment Operator Name Role Phone Dana Crook MD Primary Care Provid er Oz Matias MARKETING/SALES PERSON Unavailable [phone] Unknown, Provider Primary Care Provider Unavaila [facility] Dana Crook MD Unavailable [phone] Dana Crook MD Unavailable [phone] No Ref-Primary, Physician Primary Care Provider Shabana Fu MD Primary Care Provider + [facility], [facility] Primary Care Provider Reason for Visit * Reason Comments Medication Refill Encounter Details Date Type Department Care Team (Late st Contact Info) Description 09/24/2016 Refill [facility] Mental Health & Addiction [facility] [address] [place] [address] Terri Donato, REFINERY OPERATOR [place]ATION [address] [place] [address] Medication Refill Social History Tobacco Use Types Packs/Day Years Used Date Smoking Tobacco: Every Day Cigarettes 0.3 15 Smokeless Tobacco: Never Comments:a pack every 3 days Alcohol Use Standard Drinks/Week Comments No 0 (1 standard drink = 0.6 oz pur e alcohol) Sex and Gender Information Value Date Recorded Sex Assigned at Not on file Gender Identity Not on file Sexual Orientation Not on file documented as of this encounter Miscellaneous Notes * Telephone Encounter - Suzy Johnson RN - 10/21/2016 12:27 PM CDT Left VM for pt to determine what medication she is taking currently for sleep. * Telephone Encounter - Terri Donato NP - 10/20/2016 5:12 PM CDT Medication - I am guessing Seroquel (quetiapine) - was adjusted by another provider last weekend. * Telephone Encounter - Phylicia Freeman - 10/20/2016 8:08 AM CDT Reason for call: Other Patient called regarding (reason for call): call back Additional comments: Med is not letting her sleep. She is suppose to stop a med but hasn't been able to because she can't sleep. Please call her back. Phone Number Pt can be reached at: Home number on file [phone] Best Time: YESSY Can we leave a detailed message on this number? YES * Telephone Encounter - Claudia Farmer RN - 09/27/2016 3:31 PM CDT Follow up in one week. documented in this encounter Plan of Treatment Not on file documented as of this encounter Visit Diagnoses Diagnosis Bipolar I disorder (H) Bipolar I disorder, most recent episode (or current) unspecified documented in this encounter Additional Health Concerns Assessment Noted Time PHQ-9 Depression Total Score: 14 017 7:12 AM TOLL OPERATOR documented as of this encounter Care Teams Small Equipment Operator Relationship Specialty Start Date End Date Dana Crook MD [address] [place] [address] PCP - General Internal Medicine 05/23/16 02/24/17 Unknown, Provider PCP - General 02/25/17 03/10/17 Dana Crook MD [address] [place] [address] PCP - Assigned PCP 03/24/16 08/14/18 No Ref-Primary, Physician PCP - General 03/12/19 03/21/19 Shabana Fu MD [facility] & [address] [address] PCP - General Family Practice 03/22/19 03/22/[address] [address] PCP - General 03/23/20 Oz Matias, ALY Compliance Counsel 12/16/16 01/15/17 Dana Crook MD [address] [place] [address] Assigned PCP 03/24/16 09/07/19 documented as of this encounter
--- OUTSIDE RECORDS SUMMARY | 2024-03-18 15:01 | XMS_ITS | Referral Summary ---
Author Organization [place] Address [address] [place] [address] Care Team Providers Care Manager Asset Name Role Phone Clinic, [facility] Primary Care Provider Allergies Active Allergy Reactions Criticality Noted Date Comments Melatonin 04/22/2016 Had nightmares Trazodone 04/22/2016 Nightmares Medications Medication Sig Dispensed Refills Start Date End Date Status METHADONE HCL IJIndications:pt goes to clinic qd taking 55mg per day Take 130 mg by mouth every morning Active metoprolol (TOPROL-XL) 50 MG 24 hr tabletIndications:Ess ential hypertension with goal blood pressure less than 140/90 Take 1 tablet (50 mg) by mouth daily 30 tablet 02/21/2017 Active VENTOLIN HFA 108 (90 BASE) MCG/ACT Inhaler 1-2 puffs every 4 hours as needed 02/13/2017 Active cloNIDine (CATAPRES) 0.1 MG tabletIndications:Ess ential hypertension with goal blood pressure less than 140/90 Take 1 tablet (0.1 mg) by mouth At Bedtime 30 tablet 1 03/07/2017 Active FLUoxetine (PROZAC) 40 MG capsuleIndications:Bi polar I disorder (H) Take 1 capsule (40 mg) by mouth daily 30 capsule 1 03/07/2017 Active hydrochlorothiazide (HYDRODIURIL) 25 MG tablet Take 25 mg by mouth daily Active Furosemide (LASIX PO) Act stephen Active Problems Problem Noted Date Diagnosed Date Panic disorder without agoraphobia with mild aceves ic attacks 06/29/2016 Bipolar I disorder 06/21/2016 PTSD (post-traumatic stress disorder) 06/21/2016 Low back pain without sciati ca, unspecified back pain laterality, unspecified chronicity 05/10/2016 Hepatitis C virus infection without hepatic coma, unspecified chronicity 05/06/2016 Other insomnia 04/27/2016 Essential hypertension with goal blood pressure less than 140/90 04/21/2016 Hypertension History of heroin abuse Hepatitis C infection History of methamphetamine abuse Resolved Problems Problem Noted Date Diagnosed Date Resolved Date Bipolar disorder 07/01/2016 09/29/2016 Bipolar disorder 06/21/2016 Anxiety 06/21/2016 Major depressive disorder, severe 06/21/2016 Immunizations Name Administration Dates Next Due Influenza (IIV3) PF 04/22/2016 Social History Tobacco Use Types Packs/Day Years Used Date Smoking Tobacco: Every Day Cigarettes 1 15 Smokeless Tobacco: Never Tobacco Cessation:Ready to Q uit: No; Counseling Given: Yes Alcohol Use Standard Drinks/Week Comments No 0 (1 standard drink = 0.6 oz pur e alcohol) PHQ-2 Answer Date Recorded PHQ-2 Score 2 06/19/2018 Sex and Gender Information Value Date Recorded Sex Assigned at Not on file Gender Identity Not on file Sexual Orientation Not on file Last Filed Vital Signs Vital Sign Reading Time Taken Comments Blood Pressure 109/68 03/27/2020 10:25 AM CDT Pulse 68 03/27/2020 10:25 AM CDT Temperature 37.1 ??C (98.7 ??F) 03/27/2020 9:56 AM CD T Respiratory Rate 16 03/27/2020 10:25 AM CDT Oxygen Saturation 93% 03/27/2020 10:25 AM CDT Inhaled Oxygen Concentration - - Weight 59 kg (130 lb) 09/03/2019 12:00 PM CDT Height 158.8 cm (5' 2.5) 09/03/2019 12:00 PM CD T Body Mass Index 23.4 09/03/2019 12:00 PM CDT Plan of Treatment Not on file Medical Devices Explanted Type Area Switchboard Wirer Device Identifier Shelf Expiration Date Model / Serial / Lot Cath Port Powerport Clearvue Slim 6fr [id number]/11/20 19 Implanted:Qty: 1 on 03/22/2019 by Alberto Bethea MD Explanted:Qty: 1 on 03/27/2020 by Alberto Bethea MD Port CR [employer] [id number] / / REDU [id number] Care Teams Manager Asset Relationship Specialty Start Date End Date [facility], [place] [address] PCP - General 03/23/20
--- OUTSIDE RECORDS SUMMARY | 2024-03-18 15:01 | XMS_ITS | Encounter Summary ---
Author Organization [place] Address [facility] [place] [address] Care Team Providers Care Technical Stenographer Name Role Phone Dana Crook MD Primary Care Provid er Polly Marijakeith ENGINE ROOM HELPER Unavailable [phone] Unknown, Provider Primary Care Provider Unavaila ble Dana Crook MD Unavailable [phone] Dana Crook MD Unavailable [phone] No Ref-Primary, Physician Primary Care Provider Shabana Fu MD Primary Care Provider + [facility], [facility] Primary Care Provider Reason for Visit * Reason Onset Date Comments Outpatient 06/20/2016 Other Encounter Details Date Type Department Care Team ([facility] st Contact Info) Description 06/20/2016 Telephone [facility] Behavioral Health Intake [address] [place] [id number] Generic, Behavioral Intake, Outpatient Social History Tobacco Use Types Packs/Day Years Used Date Smoking Tobacco: Every Day Cigarettes 0.3 15 Comments:a pack every 3 days Alcohol Use Standard Drinks/Week Comments No 0 (1 standard drink = 0.6 oz pur e alcohol) Sex and Gender Information Value Date Recorded Sex Assigned at Not on file Gender Identity Not on file Sexual Orientation Not on file documented as of this encounter Miscellaneous Notes * Telephone Encounter - Cherry Ruelas LPC - 08/09/2016 8:53 AM CST Received voicemail from patient stating she will not be returning to [facility] program in order to pursue programming at [facility]. AMBER León, [facility] 08/09/2016 NG ROOM CASHIER * Telephone Encounter - Cherry Ruelas LPC - 08/08/2016 8:26 AM CST Received voicemail from patient stating she would not be in program due to appointments. She statedshe would call caption writer to provide update on sober housing appointment. AMBER León, [facility] 08/08/2016 NG ROOM CASHIER * Telephone Encounter - Catrachita Grimm - 06/29/2016 9:36 AM CST ----- Message from Meliton Rodriguez LP sent at 06/29/2016 9:24 AM DINING ROOM CASHIER ----- Regarding: start [facility] Floydomar, Pt has a planned start of 07/01/2016 in the 11am track of [facility] IOP. Pt has [facility] insurance. Please request 48 sessions from 07/01-09/29/16. Thank you, Meliton Rodriguez MA [facility] NG ROOM CASHIER * Telephone Encounter - Mounika Garcia - 06/20/2016 12:07 PM CST Client saw a therapist today for the first time at [facility]. Name is Harrison Calvert. Also sees psychiatrist, Dr. Terri Song, at that clinic. Bipolar d/o, OCD, panic attacks. Hx of Heroin and Methodone use. No chemical use for more than three months. No psych meds. Take medication for blood pressure. Per medication above pt taking hydrocodone. Is seeing her physician 06/21/16 and may start new meds at that time. Having mood swings, poor sleep. Increased depression and anxiety. May be reached on cell phone listed to schedule the diagnostic. Benefits requested. ROBERTO verified. Referred to day tx. NG ROOM CASHIER documented in this encounter Plan of Treatment Not on file documented as of this encounter Visit Diagnoses Not on filedocumented in this encounter Additional Health Concerns Assessment Noted Time PHQ-9 Depression Total Score: 20 017 7:10 AM DINING ROOM CASHIER documented as of this encounter Care Teams Technical Stenographer Relationship Specialty Start Date End Date Dana Crook MD [address] [place] [address] PCP - General Internal Medicine 05/23/16 02/24/17 Unknown, Provider PCP - General 02/25/17 03/10/17 Dana Crook MD [address] [place] [address] PCP - Assigned PCP 03/24/16 08/14/18 No Ref-Primary, Physician PCP - General 03/12/19 03/21/19 Shabana Fu MD [facility] & [address] [address] PCP - General Family Practice 03/22/19 03/22/[address] [address] PCP - General 03/23/20 Oz Matias MSW Beam Racker 12/16/16 01/15/17 Dana Crook MD [address] [place] [address] Assigned PCP 03/24/16 09/07/19 documented as of this encounter
--- OUTSIDE RECORDS SUMMARY | 2024-03-18 15:01 | XMS_ITS | Encounter Summary ---
Author Organization [place] Address [address] [place] [address] Care Team Providers Care Food Storeroom Clerk Name Role Phone Dana Crook MD Primary Care Provid er Polly Marijakeith CLIENT FINANCE ANALYST Unavailable [phone] Unknown, Provider Primary Care Provider Unavaila Dana Block MD Unavailable [phone] Dana Crook MD Unavailable [phone] No Ref-Primary, Physician Primary Care Provider Shabana Fu MD Primary Care Provider + [facility] Primary Care Provider Reason for Visit * Reason Onset Date Comments Patient Request 11/16/2016 2 Med Refills Encounter Details Date Type Department Care Team (Late st Contact Info) Description 11/16/2016 Telephone [facility] [address] [place] [address] Dana Crook MD [address] [place] [address] Patient Request (2 Med Refills) Social History Tobacco Use Types Packs/Day Years [...] encounter Miscellaneous Notes * Telephone Encounter - Dana Crook MD - 11/18/2016 12:12 PM CDT Meds filled for [address] advise to f/u on HTN * Telephone Encounter - Korin Jara RN - 11/16/2016 4:38 PM CDT Metoprolol , Clonidine Last Written Prescription Date: 06/22/16, 08/31/16 Last Fill Quantity: 30, # refills: 6 , 3 Last Office Visit with [facility], [facility] or [facility] prescribing provider: 10/27/16 Psych; 08/31/16 Armaan Future Office Visit: Next 5 appointments (look out 90 days) Dec 16, 2016 9:15 AM CDT Return Visit with [facility] Donato [facility] [address] [place] [address] [address] [facility] [address] BP Readings from Last 3 Encounters: 10/03/16 132/84 08/31/16 102/60 07/29/16 120/60 Routing refill request to provider for review/approval because: Per dictation from 08/31/16 OV: Plan:decreased clonidine to 0.1 mg daily. Continue metoprolol 50 mg once daily as directed. Monitor BP and f/u in 2 mths. ?? * Telephone Encounter - Loulou Gee - 11/16/2016 4:27 PM CDT Reason for call: Medication If this is a refill request, has the caller requested the refill from the pharmacy already? No Will the patient be using a [facility]? [place] of the pharmacy and phone number for the current request: [facility] [place]; telephone [phone] Name of the medication requested: CLORIDINE & METOPROLOL Other request: *Same pharmacy for both meds Phone number to reach patient: Cell number on file: [phone] Best Time: Anytime Can we leave a detailed message on this number? YES documented in this encounter Plan of Treatment Not on file documented as of this encounter Visit Diagnoses Diagnosis Essential hypertension with goal blood pressure less than 140/90 documented in this encounter Additional Health Concerns Assessment Noted Time PHQ-9 Depression Total Score: 13 017 7:07 AM CDT documented as of this encounter Care Teams Food Storeroom Clerk Relationship Specialty Start Date End Date Dana Crook MD [address] [place] [address] PCP - General Internal Medicine 05/23/16 02/24/17 Unknown, Provider PCP - General 02/25/17 03/10/17 Dana Crook MD [address] [place] [address] PCP - Assigned PCP 03/24/16 08/14/18 No Ref-Primary, Physician PCP - General 03/12/19 03/21/19 Shabana Fu MD [facility] [address] [place] [address] PCP - General Family Practice 03/22/19 03/22/[address] [address] PCP - General 03/23/20 Oz Matias, ALY Network Security Analyst 12/16/16 01/15/17 Dana Crook MD [address] [place] [address] Assigned PCP 03/24/16 09/07/19 documented as of this encounter
--- OUTSIDE RECORDS SUMMARY | 2024-03-18 15:01 | XMS_ITS | Clinical Summary ---
Author Organization [place] Address [address] [place] [address] Care Team Providers Care Auto Claim Representative Name Role Phone [facility] [place] Primary Care Provider Allergies Active Allergy Reactions [...] Dates Next Due Influenza (IIV3) PF 04/22/2016 Family History Medical History Relation Comments Bipolar Disorder Cousin Anxiety Disorder Maternal Aunt 1 Depression Maternal Aunt 1 Anxiety Disorder Maternal Aunt 2 Depression Maternal Aunt 2 Melanoma Maternal Grandfather Bipolar Disorder Maternal Uncle 1 Anxiety Disorder Maternal Uncle 2 Depression Maternal Uncle 2 Anxiety Disorder Mother Other Cancer Mother Diabetes No family hx of Relation Status Comments Brother Alive Cousin Daughter Alive Father Alive Maternal Aunt 1 Maternal Aunt 2 Maternal Grandfather Maternal Grandmother Maternal Uncle 1 Maternal Uncle 2 Mother Alive Paternal Grandfather Paternal Grandmother Son Alive Social History Tobacco Use Types Packs/Day Years [...] on file Medical Devices Explanted Type Area College Or University Business Manager Device Identifier Shelf Expiration Date Model / Serial / Lot Cath Port Powerport Clearvue Slim 6fr [id number]/11/20 19 Implanted:Qty: 1 on 03/22/2019 by Alberto Bethea MD Explanted:Qty: 1 on 03/27/2020 by Alberto Bethea MD Port [employer] [id number] / / REDU 1663 Care Teams Auto Claim Representative Relationship Specialty Start Date End Date [address] [address] PCP - General 03/23/20
== END 2024-03-18 14:56 | disposition home or self-care (01) ==
PROVIDERS: PCP Family Medicine; Visit Provider Family Medicine
DX: E78.2 Mixed hyperlipidemia (principal); I10 Essential (primary) hypertension; D64.9 Anemia, unspecified; R53.83 Other fatigue; Z13.29 Encounter for screening for other suspected endocrine disorder; Z13.21 Encounter for screening for nutritional disorder
CPT/HCPCS: 80048; 80076; 82306; 84443; 85025

== ENCOUNTER 2024-03-25 07:53 | Outpatient (CLI) | payer MEDICAID, SELFPAY ==
--- OUTSIDE RECORDS SUMMARY | 2024-03-25 07:56 | XMS_ITS | Clinical Summary ---
Author Organization [facility] Address [place], [place] [address] Care Team Providers Care Psychiatric Social Worker Supervisor Name Role Phone Regina Ynes Ludwig RN, BSN Unavailable [phone] Efrain Cortes MD Primary Care Provider [...] mouth once daily. Takes at noon. Active ivpxur-tjodovez-wl ylase (Creon) 24,000-76,000 -120,000 unit cpDR Delayed-Release capsule Take 2-3 Capsules by mouth 3 times daily with meals. Dose = 2 capsules for regular size meal and 3 capsules for larger meal Active vqnjwo-dsbciegz-ii ylase (Creon) 24,000-76,000 -120,000 unit cpDR Delayed-Release capsule Take 1-2 Capsules by mouth each time if needed for Supplement w/ Snack. Active naloxone (NARCAN) 4 mg/actuation nasal spray Inhale 1 [place] into affected nostril(s) each time if needed [...] 03/27/2017 Panic disorder without agoraphobia with mild aceves ic attacks 06/29/2016 PTSD (post-traumatic stress disorder) [...] Comments Blood Pressure 122/95 05/22/2021 4:50 PM INFORMATION SYSTEMS TECHNICIAN Pulse 96 05/22/2021 4:50 PM INFORMATION SYSTEMS TECHNICIAN Temperature 37.4 ??C (99.4 ??F) 05/22/2021 4:50 PM CS T Respiratory Rate 20 05/22/2021 4:50 PM INFORMATION SYSTEMS TECHNICIAN Oxygen Saturation 98% 05/22/2021 4:50 PM INFORMATION SYSTEMS TECHNICIAN Inhaled Oxygen Concentration - - Weight 52.3 kg (115 lb 3.2 oz) 05/20/2021 8:26 P M INFORMATION SYSTEMS TECHNICIAN Height 157.5 cm (5' 2) 05/20/2021 8:26 PM INFORMATION SYSTEMS TECHNICIAN Body Mass Index 21.07 05/20/2021 8:26 PM INFORMATION SYSTEMS TECHNICIAN Plan of Treatment Health Maintenance Due Date [...] 02/02/2025 2, 02/02/2022, 08/31/2016 (Completed outside of [facility]) Lipids for age 45-75 04/06/2026 04/06/2021, 05/07/2018, 08/07/2017 Tetanus booster 02/07/2028 02/06/2018 Hepatitis C screening for age 18-79 Completed 08/10/2017, 08/10/2017, 08/07/2017 Tdap Completed 02/06/2018 Pneumococcal series for age 6-64 Aged Out 10/11/2019 No longer eligible based on patient's age to complete this topic Procedures Procedure Name Priority Date/Time Associated Diagnosis Comments REFUGE MANAGER THIN PREP PAP SCREEN IMAGED Routine 02/02/2022 10:30 AM CDT LIPID PANEL Timed 04/06/2021 5:51 AM CDT ANTI HCV Routine 08/10/2017 2:01 PM INFORMATION SYSTEMS TECHNICIAN Hepatitis C virus infection without hepatic coma, unspecified chronicity from Last 3 Months or Most Recently Relevant to Health Maintenance Results * REFUGE MANAGER THIN PREP PAP SCREEN IMAGED (02/02/2022 10:30 AM CDT) Case Report Gynecologic Cytology Report ? Case: [id number] ? Authorizing Provider: ??Suzanna Allen MD ?Collected: ? 02/02/2022 1030 ? Ordering Location: ? [facility] ?Received: ?02/02/2022 1639 ? First Screen: ?Baccam, Minie ? Pathologist: ? Perez Khanna ? Meenakshi, ? Specimen: ?REFUGE MANAGER ThinPrep Vial Screening, Cervical ? 02/04/2022 12:24 PM CDT [facility] INTERPRETATION/ RESULT NEGATIVE FOR INTRAEPITHELIAL LESION OR MALIGNANCY (NIL) (none) 02/04/2022 12:24 PM CDT [facility] R NON-NEOPLASTIC FINDING(S) Reactive cellular changes associated with inflammation/repa ir 02/04/2022 12:24 PM CDT [facility] SPECIMEN ADEQUACY Satisfactory for evaluation Endocervical component present 02/04/2022 12:24 PM CDT [facility] HPV REQUEST HPV and PAP 02/04/2022 12:24 PM CDT [facility] Abnormal Pap or [place] Bx in last 5 years 02/04/2022 12:24 PM T [facility] Comment:unknown Menstrual Status Postmenopausal 02/04/2022 12:24 PM T [facility] [place] Bx Done Today Yes 02/04/2022 12:24 PM CDT [facility] Additional Information 02/04/2022 12:24 PM T [facility] Comment: Interpreted at [facility] Laboratory - [address], [place] [address] Automated Review Successful 02/04/2022 12:24 PM [facility] Comment:Specimen processed s uccessfully by automated secondary school registrar device, ThinPrep Imaging System, [employer] ANCILLARY TESTING REFUGE MANAGER HPV Ordered, Please see separate report 02/04/2022 12:24 PM T [facility] Note The pap test [...] and malignant lesions. 02/04/2022 12:24 PM T [facility] Other (Cervical) 02/02/2022 10:30 AM CDT 02/02/2022 4:39 PM CDT Suzanna Allen MD PATHOLOGY/CYTOLOGY [facility] [address] [place] [address], [place] * LIPID PANEL (04/06/2021 5:51 AM CDT) CHOLESTEROL,TOTAL 121 100 - 199 mg/dL 04/06/2021 6:[address] [facility] TRIGLYCERIDES 30 <150 mg/dL 04/06/2021 6:[address] [facility] HDL CHOLESTEROL 47 >40 mg/dL 6:[address] [facility] NON-HDL CHOLESTEROL 74 <145 mg/dl 04/06/2021 6:[address] [facility] CHOL/HDL RATIO 2.57 <4.50 04/06/2021 6:[address] [facility] LDL CHOLESTEROL 68 <=130 mg/dL 04/06/2021 6:[address] [facility] VLDL CHOLESTEROL 6 <=30 mg/dL 04/06/20 6:[address] [facility] PROVIDER ORDERED STATUS RANDOM 04/06/2021 6:[address] [facility] Blood BLOOD SPECIMEN / Unknown Venipuncture / Unknown 04/06/2021 5:51 AM CDT 04/06/2021 6:24 AM CDT Adi Hardy MD CHEMISTRY [facility] [address] [facility] [place] [address] * (ABNORMAL) ANTI HCV (08/10/2017 2:01 PM INFORMATION SYSTEMS TECHNICIAN) HEPATITIS C ANTIBODY Reactive, Preliminary Positive(A) Non-React stephen 08/11/2017 7:42 AM INFORMATION SYSTEMS TECHNICIAN [facility] Blood BLOOD SPECIMEN / Unknown Venipuncture / Unknown 08/10/2017 2:01 PM INFORMATION SYSTEMS TECHNICIAN 08/10/2017 2:01 PM INFORMATION SYSTEMS TECHNICIAN [facility]ative [facility] - 08/11/2017 7:42 AM INFORMATION SYSTEMS TECHNICIAN Presumptive evidence of antibodies to HCV. Reflexed to HCV RNA Quant (See separate report). Suzy Chua MD SEND OUTS [facility] [address] [place] [address], from Last 3 Months or Most Recently [...] 6:01 AM 10/11/2019 6:52 PM Care Teams Psychiatric Social Worker Supervisor Relationship Specialty Start Date End Date Efrain Cortes MD [address] [place] [address] PCP - General Family Practice 10/04/19October, Ynes Ludwig RN, BSN [address] [address] Cancer Nurse Coordinator Oncology 03/14/19
--- OUTSIDE RECORDS SUMMARY | 2024-03-25 07:57 | XMS_ITS | Clinical Summary ---
Author Organization [place] Address [address] [place] [address] Care Team Providers Care Internal Medicine Specialist Name Role Phone [facility] Primary Care Provider Allergies Active Allergy Reactions [...] on file Medical Devices Explanted Type Area Machine Guide Base Winder Device Identifier Shelf Expiration Date Model / Serial / Lot Cath Port Powerport Clearvue Slim 6fr [id number]/11/20 19 Implanted:Qty: 1 on 03/22/2019 by Alberto Bethea MD Explanted:Qty: 1 on 03/27/2020 by Alberto Bethea MD Port [employer] [id number] / / REDU [id number] Care Teams Internal Medicine Specialist Relationship Specialty Start Date End Date [address] [address] PCP - General 03/23/20
--- OUTSIDE RECORDS SUMMARY | 2024-03-25 07:57 | XMS_ITS | Encounter Summary ---
Author Organization [place] Address Formerly [facility] [place] [address] Care Team Providers Care Cinder Worker Name Role Phone Dana Crook MD Unavailable [phone] No Ref-Primary, Physician Primary Care Provider Shabana Fu MD Primary Care Provider + [facility] [place] Primary Care Provider Reason for Visit * Reason Onset Date Comments Appointment 03/19/2019 left message for patient to call [phone] to schedule an appointment with the dept @ [facility] Encounter Details Date Type Department Care Team (Late st Contact Info) Description 03/19/[address] [facility] Imaging [address] [place] [address] Delia Kevin RN Appointment (left message for patient to call [phone] to schedule an appointment with the IR dept @ [facility]) Social History Tobacco Use Types Packs/Day Years [...] documented as of this encounter Care Teams Cinder Worker Relationship Specialty Start Date End Date No Ref-Primary, Physician PCP - General 03/12/19 03/21/19 Shabana Fu MD [facility] & [address] [address] PCP - General Family Practice 03/22/19 03/22/[address] [address] PCP - General 03/23/20 Dana Crook MD [address] [place] [address] Assigned PCP 03/24/16 09/07/19 documented as of this encounter
--- OUTSIDE RECORDS SUMMARY | 2024-03-25 07:57 | XMS_ITS | Referral Summary ---
Author Organization [place] Address [address] [place] [address] Care Team Providers Care Keeper Helper Name Role Phone [facility] [place] Primary Care Provider Allergies Active Allergy Reactions [...] on file Medical Devices Explanted Type Area Computer Systems Information Director Device Identifier Shelf Expiration Date Model / Serial / Lot Cath Port Powerport Clearvue Slim 6fr [id number]/11/20 19 Implanted:Qty: 1 on 03/22/2019 by Alberto Bethea MD Explanted:Qty: 1 on 03/27/2020 by Alberto Bethea MD [employer] [id number] / / [id number] Care Teams Keeper Helper Relationship Specialty Start Date End Date [facility], [place] [address] PCP - General 03/23/20
--- OUTSIDE RECORDS SUMMARY | 2024-03-25 07:57 | XMS_ITS | Encounter Summary ---
Author Organization [place] Address [address] [place] [address] Care Team Providers Care Diaper Folder Name Role Phone Dana Crook MD Primary Care Provid er Polly Marijakeith INSPECTOR AIDE Unavailable Unknown, Provider Primary Care Provider Unavaila Dana Block MD Unavailable [phone]- [phone] Dana Crook MD Unavailable [phone]- [phone] No Ref-Primary, Physician Primary Care Provider Shabana Fu MD Primary Care Provider + [facility] [place] Primary Care Provider Reason for Visit * Reason Onset Date Comments Patient Request 11/16/2016 2 Med Refills Encounter Details Date Type Department Care Team (Late st Contact Info) Description 11/16/2016 Telephone [facility] [address] [place] [address] Dana Crook MD [address] [place] [address] Patient Request (2 Med Refills) [...] 6 , 3 Last Office [place] with [facility] [place] [facility] or [facility] prescribing provider: 10/27/16 Psych; 08/31/16 Armaan Future Office Visit: Next 5 appointments (look out 90 days) Dec 16, 2016 9:15 AM CDT Return Visit with Terri Donato NP [facility] [address] [place] [address] [address] [facility] [address] BP Readings from Last 3 [...] No Will the patient be using a [facility]? [place] of the pharmacy and phone number for the current request: [facility]; telephone [phone] Name of the medication requested: CLORIDINE & METOPROLOL Other request: *Same pharmacy for both meds Phone number to reach patient: Cell number on file: [phone] Best Time: Anytime Can we leave a [...] documented as of this encounter Care Teams Diaper Folder Relationship Specialty Start Date End Date Dana Crook MD [address] [place] [address] PCP - General Internal Medicine 05/23/16 02/24/17 Unknown, Provider PCP - General 02/25/17 03/10/17 Dana Crook MD [address] [place] [address] PCP - Assigned PCP 03/24/16 08/14/18 No Ref-Primary, Physician PCP - General 03/12/19 03/21/19 Shabana Fu MD [facility] [address] [place] [address] PCP - General Family Practice 03/22/19 03/22/[address] [address] PCP - General 03/23/20 Oz Matias, ALY Ems Director 12/16/16 01/15/17 Dana Crook MD [address] [place] [address] Assigned PCP 03/24/16 09/07/19 documented as of this encounter
--- OUTSIDE RECORDS SUMMARY | 2024-03-25 07:57 | XMS_ITS | Encounter Summary ---
Author Organization [place] Address [facility]ly [facility] [place] [address] Care Team Providers Care Dietitian Therapeutic Name Role Phone Dana Crook MD Primary Care Provid er Polly Marijakeith PERIODONTIST Unavailable [phone] Unknown, Provider Primary Care Provider Unavaila ble Dana Crook MD Unavailable [phone]- [phone] Dana Crook MD Unavailable [phone]- [phone] No Ref-Primary, Physician Primary Care Provider Shabana Fu MD Primary Care Provider + [facility] [place] Primary Care Provider Reason for Visit * Reason Onset Date Comments Outpatient 06/20/2016 Other Encounter Details Date Type Department Care Team ([facility] st Contact Info) Description 06/20/2016 Telephone [facility] Behavioral Health Intake [address] [place] [id number] Generic, Behavioral Intake, Outpatient Social History Tobacco [...] program in order to pursue programming at [facility]. AMBER León, [facility] [place]/09[place] R AND DELIVERY REGISTERED NURSE * Telephone Encounter - Cherry Ruelas LPC - 08/08/2016 8:26 AM CST Received voicemail from patient stating she would not be in program due to appointments. She statedshe would call ad writer to provide update on sober housing appointment. AMBER León, [facility] [place] 08/08/2016 R AND DELIVERY REGISTERED NURSE * Telephone Encounter - Catrachita Grimm - 06/29/2016 9:36 AM CST ----- Message from Meliton Rodriguez LP sent at 06/29/2016 9:24 AM LABOR AND DELIVERY REGISTERED NURSE ----- Regarding: start [facility] Floydomar, Pt has a planned start of 07/01/2016 in the 11am track of [facility] IOP. Pt has [facility] insurance. Please request 48 sessions from 07/01-09/29/16. Thank you, Meliton Rodriguez MA [facility] R AND DELIVERY REGISTERED NURSE * Telephone Encounter - Mounika Garcia - 06/20/2016 12:07 PM CST Client saw a therapist today for the first time at [facility]. Name is Harrison Calvert. Also sees psychiatrist, [...] requested. ROBERTO verified. Referred to day tx. R AND DELIVERY REGISTERED NURSE documented in this encounter Plan of Treatment Not on file documented as of this encounter Visit Diagnoses Not on filedocumented in this encounter Additional Health Concerns Assessment Noted Time PHQ-9 Depression Total Score: 20 017 7:10 AM LABOR AND DELIVERY REGISTERED NURSE documented as of this encounter Care Teams Dietitian Therapeutic Relationship Specialty Start Date End Date Dana Crook MD [address] [place] [address] PCP - General Internal Medicine 05/23/16 02/24/17 Unknown, Provider PCP - General 02/25/17 03/10/17 Dana Crook MD [address] [place] [address] PCP - Assigned PCP 03/24/16 08/14/18 No Ref-Primary, Physician PCP - General 03/12/19 03/21/19 Shabana Fu MD [facility] & [address] [address] PCP - General Family Practice 03/22/19 03/22/[address] [address] PCP - General 03/23/20 Oz Matias MSW Cotton Ball Machine Tender 12/16/16 01/15/17 Dana Crook MD [address] [place] [address] Assigned PCP 03/24/16 09/07/19 documented as of this encounter
--- OUTSIDE RECORDS SUMMARY | 2024-03-25 07:57 | XMS_ITS | Encounter Summary ---
Author Organization [place] Address [facility] [place] [address] Care Team Providers Care Precision Millwright Name Role Phone Dana Crook MD Primary Care Provid er Oz Matias EMPLOYEE DEVELOPMENT DIRECTOR Unavailable [phone] Unknown, Provider Primary Care Provider Unavaila [facility] Dana Crook MD Unavailable [phone] Dana Crook MD Unavailable [phone]- [phone] No Ref-Primary, Physician Primary Care Provider Shabana Fu MD Primary Care Provider + [facility], [facility] Primary Care Provider Reason for Visit * Reason Comments Medication Refill Encounter Details Date Type Department Care Team (Late st Contact Info) Description 09/24/2016 Refill [facility] [address] [facility] [address] [place] [address] Terri Donato, AIRCRAFT SHIPPING CHECKER [address] [place] [address] Medication Refill Social History Tobacco [...] be reached at: Home number on file [phone] Best Time: YESSY Can we leave a [...] Depression Total Score: 14 017 7:12 AM MOBILE HOMES REPAIRER documented as of this encounter Care Teams Precision Millwright Relationship Specialty Start Date End Date Dana Crook MD [address] [place] [address] PCP - General Internal Medicine 05/23/16 02/24/17 Unknown, Provider PCP - General 02/25/17 03/10/17 Dana Crook MD [address] [place] [address] PCP - Assigned PCP 03/24/16 08/14/18 No Ref-Primary, Physician PCP - General 03/12/19 03/21/19 Shabana Fu MD [facility] & [address] [address] PCP - General Family Practice 03/22/19 03/22/[address] [address] PCP - General 03/23/20 Oz Matias, ALY Heel Washer Stringing Machine Operator 12/16/16 01/15/17 Dana Crook MD [address] [place] [address] Assigned PCP 03/24/16 09/07/19 documented as of this encounter
--- NOTE | 2024-03-25 09:00 | CRLHL7_ITS ---
For Patients: As a result of the Century Cures Act, medical imaging exams and procedure reports are released immediately into your electronic medical record. You may view this report before your referring provider. If you have questions, please contact your health care provider. INDICATION: Pancreatic cancer surveillance TECHNIQUE: CT chest, abdomen and pelvis acquired with 76 mL Isovue 370 IV contrast. COMPARISON: 09/26/2023, 03/23/2023, 09/08/2022 chest abdomen pelvis CTs FINDINGS: CHEST: Cardiovascular structures: Heart size is normal. Thoracic aorta and main pulmonary artery are normal in caliber. Mediastinum and dillon: No mass or adenopathy. Lungs and pleura: Lungs and pleural spaces are clear. No suspicious nodules, infiltrates, or effusions. Chest wall and axilla: No mass or adenopathy. Bones: No suspicious bone lesions. Unremarkable for age. ABDOMEN AND PELVIS: Liver: Left lobe is small, stable finding. Tiny low-density lesion in the dome is unchanged. No new lesions. Gallbladder and bile ducts: Cholecystectomy. No biliary dilation. Choledochojejunostomy appears patent. Pancreas: Whipple procedure with resection of the pancreatic head and tail. Remaining pancreas appears normal. Spleen: Removed. Adrenal glands: Unremarkable. Kidneys: 4 mm nonobstructing stone in the left kidney. GI tract: Whipple procedure. Patent gastrojejunostomy. No obstruction. Vascular structures: Soft tissue thickening around the proximal SMA is unchanged and likely postoperative. Lymph nodes: No adenopathy by CT size criteria. Miscellaneous: Stable mesenteric distortion and stranding, likely postoperative. Pelvic Organs: Leiomyomatous uterus. Bones: No suspicious bone lesions. Unremarkable for age. IMPRESSION: 1. No change. 2. Postoperative changes of Whipple procedure. 3. Stable technically indeterminate low-density lesion in the liver dome. Please note that all CT scans at this facility use dose modulation, iterative reconstruction, and/or weight-based dosing when appropriate to reduce radiation dose to as low as reasonably achievable. Dictated by Mayco Francis MD @ 03/27/2024 10:30:42 AM (Electronically Signed)
[2024-03-25 09:18] LABS: Basophils Absolute Auto 0.04 K/uL (0.00-0.30); Basophils Percent Auto 0.5 % (0.0-3.0); Eosinophils Absolute Auto 0.19 K/uL (0.00-0.50); Eosinophils Percent Auto 2.4 % (0.0-7.0); Hematocrit 29.7 % (33.0-51.0); Hemoglobin* 9.1 gm/dL (12.0-16.0); Immature Granulocytes Abs Auto 0.01 K/uL (0.00-0.30); Immature Granulocytes Pct Auto 0.1 %; Lymphocytes Absolute Auto 2.34 K/uL (0.90-2.90); Lymphocytes Percent Auto 29.9 % (20-44); Mean Corpuscular HGB Conc 31 gm/dL (32-36); Mean Corpuscular Hemoglobin 28 pg (26-34); Mean Corpuscular Volume 93 fL (80-100); Neutrophils Absolute Auto 4.54 K/uL (1.7-7.0); Neutrophils Percent Auto 58.1 % (42.0-72.0); Platelet Count* 503 K/uL (140-440); Red Blood Count 3.21 m/uL (4.00-5.20); White Blood Count* 7.82 K/uL (4.50-11.00)
[2024-03-25 09:29] LABS: Slide Review Reflex No
[2024-03-25 09:33] LABS: Albumin* 4.3 g/dL (3.3-5.0); Chloride* 101 mmol/L (96-114); Potassium* 4.6 mmol/L (3.6-5.1); Sodium* 133 mmol/L (135-149)
[2024-03-25 09:35] LABS: Estimated Glomerular Filt Rate 69 ml/min
[2024-03-25 09:36] LABS: Alanine Aminotransferase* 17 U/L (4-35); Alkaline Phosphatase* 131 U/L (40-150); Anion Gap 7 mEq/L (7-15); Aspartate Amino Transferase* 25 U/L (12-35); Bilirubin Total* 0.4 mg/dL (0.1-1.5); Blood Urea Nitrogen* 17 mg/dL (5-24); Calcium* 9.5 mg/dL (8.4-10.6); Carbon Dioxide* 25 mmol/L (20-32); Glucose* 109 mg/dL (60-115); Total Protein* 6.9 g/dL (6.0-8.3)
[2024-03-25 10:07] LABS: Iron* 56 ug/dL (37-170)
[2024-03-25 10:10] LABS: Ferritin* 6.2 ng/mL (6.24-137.0)
[2024-03-25 10:16] LABS: Percent Iron Saturation 13 % (20-50); Total Iron Binding Capacity 416 ug/dL (265-497)
== END 2024-03-25 07:54 | disposition home or self-care (01) ==
LOC: CT 07:54
PROVIDERS: PCP Family Medicine; Visit Provider Internal Medicine Hematology & Oncology
DX: C25.0 Malignant neoplasm of head of pancreas (principal)
CPT/HCPCS: 36415; 71260; 74177; 80053; 82728; 83540; 83550; 85025; Q9967

== ENCOUNTER 2024-05-30 10:05 | Outpatient (CLI) | payer MEDICAID, SELFPAY | END 2024-05-30 10:06 | disposition home or self-care (01) | LOC: NFLDREF 05-31 23:45 | PROVIDERS: PCP Family Medicine; Referring Provider Family Medicine; Visit Provider Family Medicine | DX: I10 Essential (primary) hypertension (principal); D64.9 Anemia, unspecified | CPT/HCPCS: 80048; 82728 ==

== ENCOUNTER 2024-06-11 12:14 | Emergency (ER) | payer MEDICAID, SELFPAY ==
[2024-06-11 12:30] VITALS: BP 131/81; PULSE 78; RESP 18; TEMP 36.9; O2SAT 96; BMI 26.5
--- NOTE | 2024-06-11 13:02 | ED_ITS ---
HPI - General Adult General Chief complaint: Animal Bite Stated complaint: cat bite Time Seen by Provider: 06/11/24 12:17 History of Present Illness HPI narrative: This 49-year-old female comes in with redness and pain increasing in the middle finger of her left hand after her cat bit her last evening. She states that the cat is healthy and is up-to-date on vaccinations. The cat bit her when she was grooming her or doing some kind of necessary care for the animal. She has a puncture wound on this finger and now has developed some erythema with swelling and discomfort. The patient states that she has had her spleen removed because of pancreatic cancer. She does not report any fevers. Related Data Home Medications ?Medication ?Instructions ?Recorded ?Confirmed temazepam 15 mg capsule 15 mg PO QHS PRN 04/22/22 06/11/24 aripiprazole 30 mg tablet 30 mg PO DAILY 03/18/24 06/11/24 bupropion HCl 300 mg 24 hr tablet, 300 mg PO DAILY 03/18/24 06/11/24 extended release cholecalciferol (vitamin D3) 25 25 mcg PO DAILY 03/18/24 06/11/24 mcg (1,000 unit) capsule (Vitamin D3) Previous Rx's ?Medication ?Instructions ?Recorded ondansetron 8 mg disintegrating 8 mg PO TID PRN nausea and 05/08/23 tablet vomiting #20 tabs iron,carbonyl 65 mg-vitamin C 125 1 tab PO DAILY #90 tabs 11/13/23 mg tablet,delayed release (Vitron-C) rywmsh-vyhnpyau-fuqwlxd 4 - 5 cap PO TID #600 caps 12/18/23 12,000-38,000-60,000 unit capsule,delayed rel (Creon) furosemide 20 mg tablet 20 mg PO DAILY #30 tabs 05/23/24 gabapentin 300 mg capsule 300 mg PO TID #90 caps 05/23/24 spironolactone 50 mg tablet 100 mg (2 x 50 mg) PO QDAY #60 tabs 05/23/24 oxycodone 10 mg tablet,crush 10 mg PO BID #60 tabs 06/06/24 resistant,extended release 12 hr (OxyContin) amoxicillin 875 mg-potassium 1 tab PO BID #14 tabs 06/11/24 clavulanate 125 mg tablet Allergies Allergy/AdvReac Type Severity Reaction Status Date / Time aspirin Allergy Intermediate GI bleed Verified 06/11/24 12:37 lidocaine Allergy Mild burn and Verified 06/11/24 12:37 itch melatonin Allergy Unknown Unknown Verified 06/11/24 12:37 trazodone Allergy Unknown Unknown Verified 06/11/24 12:37 NSAIDS (Non-Steroidal AdvReac Severe bleeding Verified 06/11/24 12:37 Anti-Inflamma Review of Systems Status of ROS: Reports: 10 or more systems reviewed and unremarkable except as noted in History and below Narrative: Constitutional: No fevers, no weight gain or loss. Eyes: No discharge. No vision changes. HENT: No congestion, no sore throat, no ear pain. Cardiovascular: No chest pain, no palpitations. Respiratory: No shortness of breath, no wheezes, no cough. Gastrointestinal: No abdominal pain, no vomiting, no diarrhea. Genitourinary: No dysuria, no hematuria. Musculoskeletal: Normal range of motion. Skin: No rashes, no pruritis. Cat bite to the left middle finger with signs of infection. Neurological: No dizziness, weakness, sensory change, speech change. Endo/Heme/Allergies: No bruising or bleeding. No polydipsia. Pysch: no suicidality, no anxiety, no insomnia. All other systems reviewed and are negative. [facility] Medical History (Updated 06/11/24 @ 13:06 by Alfred Conklin MD) Mixed hyperlipidemia ?E78.2 - Mixed hyperlipidemia (ICD-10) Primary hypertension ?I10 - Essential (primary) hypertension (ICD-10) Major depression, recurrent ?F33.9 - Major depressive disorder, recurrent, unspecified (ICD-10) Nicotine dependence ?F17.200 - Nicotine dependence, unspecified, uncomplicated (ICD-10) Chronic dental pain ?K08.9 - Disorder of teeth and supporting structures, unspecified (ICD-10) ?G89.29 - Other chronic pain (ICD-10) Postmenopausal bleeding ?N95.0 - Postmenopausal bleeding (ICD-10) Secondary thrombocytosis ?D75.838 - Other thrombocytosis (ICD-10) Posttraumatic stress disorder (06/21/16) ?F43.10 - Post-traumatic stress disorder, unspecified (ICD-10) Menorrhagia ?N92.0 - Excessive and frequent menstruation with regular cycle (ICD-10) Lymphedema ?I89.0 - Lymphedema, not elsewhere classified (ICD-10) Infection due to severe acute respiratory syndrome coronavirus 2 (SARS-CoV-2) ?U07.1 - COVID-19 (ICD-10) History of adenomatous polyp of colon ?Z86.010 - Personal history of colonic polyps (ICD-10) Hepatic encephalopathy (04/04/21) ?K72.90 - Hepatic failure, unspecified without coma (ICD-10) Gastrointestinal hemorrhage ?K92.2 - Gastrointestinal hemorrhage, unspecified (ICD-10) Bipolar I disorder (01/16/18) ?F31.9 - Bipolar disorder, unspecified (ICD-10) Anxiety ?F41.9 - Anxiety disorder, unspecified (ICD-10) Anemia ?D64.9 - Anemia, unspecified (ICD-10) Alcohol dependence in remission ?F10.21 - Alcohol dependence, in remission (ICD-10) Abdominal ascites ?R18.8 - Other ascites (ICD-10) Acute GI bleeding ?K92.2 - Gastrointestinal hemorrhage, unspecified (ICD-10) Hepatitis C infection ?B19.20 - Unspecified viral hepatitis C without hepatic coma (ICD-10) Pancreatic cancer ?C25.9 - Malignant neoplasm of pancreas, unspecified (ICD-10) Cirrhosis ?K74.60 - Unspecified cirrhosis of liver (ICD-10) Chronic abdominal pain ?R10.9 - Unspecified abdominal pain (ICD-10) ?G89.29 - Other chronic pain (ICD-10) Surgical History History of Whipple procedure (04/10/21) ?Z90.410 - Acquired total absence of pancreas (ICD-10) ?Z90.49 - Acquired absence of other specified parts of digestive tract (ICD- 10) History of pancreatic surgery (09/2019) ?Z98.890 - Other specified postprocedural states (ICD-10) History of pancreatectomy ?Z90.410 - Acquired total absence of pancreas (ICD-10) Hx of tympanostomy tubes ?Z98.890 - Other specified postprocedural states (ICD-10) H/O hernia repair ?Z98.890 - Other specified postprocedural states (ICD-10) ?Z87.19 - Personal history of other diseases of the digestive system (ICD-10) History of tonsillectomy ?Z90.89 - Acquired absence of other organs (ICD-10) History of tubal ligation ?Z98.51 - Tubal ligation status (ICD-10) Family History Brother Colon cancer, Onset Age: 20 Aunt Breast cancer Mother High blood pressure Other Diabetes Melanoma Social History (Updated 04/30/24 @ 13:58 by Mindy Barrios ~ [facility]) Narrative: Does not drink alcohol Does not have regular exercise regimen 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, 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[employer], 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 Tobacco use- 10 cig/day, hx 30 pack years What is your current living situation?: I presently have a place to live Problems where you live: no known problems In the past 12 months, utilities in danger of being shut off: no In past 12 months, lack of transportation kept you from medical appts, meetings, work, or getting things needed for daily living: no In the past 12 mos, have been you worried that your food would run out before you had money to buy more?: often true In the past 12 mos, the food you bought just didn't last and you didn't have money to buy more?: often true Smoking Status: Never smoker Do you use any of these nicotine containing products: Vaping Products Second hand tobacco smoke exposure: No How often do you have a drink containing alcohol: never How often do you have six or more drinks on one occasion: Never AUDIT-C Alcohol total score: 0 Non-prescribed substance use: denies use How often does anyone, including family, friends and others, physically hurt you : never How often does anyone, including family, friends and others, insult or talk down to you: fairly often How often does anyone, including family, friends and others, threaten you with harm: never How often does anyone, including family, friends and others, scream or curse at you: sometimes service: No Health Related Social Needs: food insecurity (Z59.41) and Other personal risk factors, not elsewhere classified (Z91.89) Exam Narrative: Exam Narrative: Constitutional: Well-developed, well-nourished, no acute distress. HEENT: Normocephalic, atraumatic. Neck: Normal range of motion. Nontender. Supple. Heart: Intact distal pulses. Lungs: No chest discomfort. No wheezes, rhonchi, or rales. Abdomen: Nontender. Back: Normal range of motion. Extremities: Normal range of motion. Left middle finger has puncture wounds with most of the finger now showing erythema and mild swelling. Skin: Intact. No rash. Warm. No erythema or pallor. Neurologic: No altered sensation. No weakness. Alert and oriented. Psychiatric: No suicidality. No anxiety or depression. No insomnia. Nursing notes and vitals signs are reviewed. Const: Vital Signs, click to edit/add: Vital Signs - 24 hr 06/11/24 12:30 Temperature 98.4 F Pulse Rate [Right Pulse Oximeter] 78 Respiratory Rate 18 Blood Pressure [Ri ght Upper Arm] 131/81 Pulse Oximetry 96 Oxygen Delivery Me thod Room Air Course Vital Signs Vital signs: Initial Vital Signs Temperature 98.4 F 06/11/24 12:30 Temperature Source Temporal Artery Scan 06/11/24 12:30 Pulse Rate 78 06/11/24 12:30 Pulse Rhythm Regular 06/11/24 12:30 Pulse Strength 3+ Normal 06/11/24 12:30 Respiratory Rate 18 06/11/24 12:30 Blood Pressure 131/81 06/11/24 12:30 Blood Pressure Mean 97 06/11/24 12:30 Blood Pressure Position Sitting 06/11/24 12:30 Pulse Oximetry 96 06/11/24 12:30 Oxygen Delivery Method Room Air 06/11/24 12:30 Vital Signs Temperature 98.4 F 06/11/24 12:30 Pulse Rate 78 06/11/24 12:30 Respiratory Rate 18 06/11/24 12:30 Blood Pressure 131/81 06/11/24 12:30 Pulse Oximetry 96 06/11/24 12:30 Oxygen Delivery Method Room Air 06/11/24 12:30 Temperature 98.4 F 06/11/24 12:30 Pulse Rate 78 06/11/24 12:30 Respiratory Rate 18 06/11/24 12:30 Blood Pressure 131/81 06/11/24 12:30 Pulse Oximetry 96 06/11/24 12:30 Oxygen Delivery Method Room Air 06/11/24 12:30 Medical Decision Making MDM Narrative Medical decision making narrative: This patient comes in with a injury to her left middle finger from a cat bite. She is showing signs of infection. She received a prescription for Augmentin and is encouraged use sygg-wqs-uhlzyct medicines as needed and directed. Discharge Plan Discharge Clinical Impression: Cat bite of hand Patient Disposition: Home, Self-Care Condition: Stable Additional Instructions: Take medication as prescribed. Use fero-lfl-awtlvip medicines also as needed and directed. Follow up with MD return if worsening. Prescriptions: New amoxicillin-pot clavulanate 875-125 mg tablet 1 tab PO BID Qty: 14 0RF No Action aripiprazole 30 mg tablet 30 mg PO DAILY bupropion HCl 300 mg tablet extended release 24 hr 300 mg PO DAILY cholecalciferol (vitamin D3) [Vitamin D3] 25 mcg (1,000 unit) capsule 25 mcg PO DAILY temazepam 15 mg capsule 15 mg PO QHS PRN ondansetron 8 mg tablet,disintegrating 8 mg PO TID PRN (Reason: nausea and vomiting) Qty: 20 1RF Vitron-C 65 mg iron- 125 mg tablet,delayed release (DR/EC) 1 tab PO DAILY Qty: 90 1RF Creon 12,000-38,000 -60,000 unit capsule,delayed release(DR/EC) 4 - 5 cap PO TID Qty: 600 0RF Rx Instructions: administer with meals and/or snacks spironolactone 50 mg tablet 100 mg PO QDAY Qty: 60 0RF furosemide 20 mg tablet 20 mg PO DAILY Qty: 30 0RF gabapentin 300 mg capsule 300 mg PO TID Qty: 90 5RF oxycodone [OxyContin] 10 mg tablet,oral only,ext.rel.12 hr 10 mg PO BID Qty: 60 0RF Rx Instructions: OK to fill a couple days early due to travel Follow Up/Referrals: Efrain Cortes MD [Primary Care Provider] - Stand Alone Forms: [employer] Info Instructions
== END 2024-06-11 13:31 | disposition home or self-care (01) ==
LOC: ED 13:13
PROVIDERS: Emergency Provider Emergency Medicine Emergency Medical Services; PCP Family Medicine
DX: S61.233A Puncture wound without foreign body of left middle finger without damage to nail, initial encounter (principal); W55.01XA Bitten by cat, initial encounter
CPT/HCPCS: 99283; 99284

== ENCOUNTER 2024-06-29 10:24 | Emergency (ER) | payer MEDICAID, SELFPAY ==
[2024-06-29 10:31] VITALS: BP 146/97; PULSE 89; RESP 16; TEMP 36.9; O2SAT 96; BMI 26.5
--- NOTE | 2024-06-29 10:39 | CRLHL7_ITS ---
For Patients: As a result of the Century Cures Act, medical imaging exams and procedure reports are released immediately into your electronic medical record. You may view this report before your referring provider. If you have questions, please contact your health care provider. INDICATION: Shortness of breath. Comparison 10/03/2018. TECHNIQUE: Chest series. FINDINGS: Lungs are clear. No pleural effusions. No pneumothorax. Normal cardiomediastinal silhouette. No osseous abnormalities. IMPRESSION: No acute findings. Dictated by Magno Hunter MD @ 06/29/2024 11:19:23 AM (Electronically Signed)
[2024-06-29 11:09] LABS: Basophils Absolute Auto 0.03 K/uL (0.00-0.30); Basophils Percent Auto 0.4 % (0.0-3.0); Eosinophils Absolute Auto 0.01 K/uL (0.00-0.50); Eosinophils Percent Auto 0.1 % (0.0-7.0); Hematocrit 40.3 % (33.0-51.0); Hemoglobin* 13.2 gm/dL (12.0-16.0); Immature Granulocytes Abs Auto 0.01 K/uL (0.00-0.30); Immature Granulocytes Pct Auto 0.1 %; Lymphocytes Absolute Auto 1.86 K/uL (0.90-2.90); Lymphocytes Percent Auto 26.7 % (20-44); Mean Corpuscular HGB Conc 33 gm/dL (32-36); Mean Corpuscular Hemoglobin 28 pg (26-34); Mean Corpuscular Volume 86 fL (80-100); Monocytes Percent Auto 11.6 % (0.0-11.0); Neutrophils Absolute Auto 4.24 K/uL (1.7-7.0); Neutrophils Percent Auto 61.1 % (42.0-72.0); Platelet Count* 321 K/uL (140-440); RDW Coefficient of Variation % 18.6 % (11.5-15.5); White Blood Count* 6.96 K/uL (4.50-11.00)
[2024-06-29 11:17] LABS: PCR FLU A POSITIVE PCR FLU A (Negative); PCR FLU B Negative PCR FLU B (Negative); PCR RSV Negative PCR RSV (Negative); SARS PCR* Negative SARS-CoV-2 (Negative)
--- OUTSIDE RECORDS SUMMARY | 2024-06-29 11:26 | XMS_ITS | Continuity of Care Document ---
Author Name NwYOJANAN User JessicaMN-a llowed Address Unknown Organization Unknown Address Unknown Procedures FILTER APPLIED:Only known Procedures with Onset Date within the last 5 years Procedure Date Procedure Provider Additiona l Information Status CT THORAX DX C+ (27827) Completed ROUTINE VENIPUNCTURE (92524) Completed COMPREHEN METABOLIC PANEL (27400) Completed CT ABD PELV W/CONTRAST (64737) Completed ASSAY OF IRON (65143) Co mpleted ASSAY OF FERRITIN (72185) Completed COMPLETE CBC W/AUTO DIFF WBC (00844) Completed LIPID PANEL (93061) Comp leted COMPREHEN METABOLIC PANEL (06360) Completed ASSAY OF FERRITIN (42271) Completed CT THORAX DX C+ (68889) Completed CT ABD PELV W/CONTRAST (19685) Completed THER/PROPH/DIAG INJ IV PUSH (13834) Completed THER/PROPH/DIAG IV INF INIT (10454) Completed Encounters FILTER APPLIED:Only known Encounters with Admission Date within the last 5 years Encounter Location Admission Discharge Billing Code Svp A basilia Outpatient Jane Mata Outpatient Andrea erickson Outpatient Efrain Cortes Outpatient Andrea erickson
--- OUTSIDE RECORDS SUMMARY | 2024-06-29 11:27 | XMS_ITS | Clinical Summary ---
Author Organization [employer] [facility] Address [place], [place] [address] Care Team Providers Care Controls Technician Name Role Phone Regina Ynes Ludwig RN, BSN Unavailable [phone] Efrain Cortes MD Primary Care Provider + Allergies Active Allergy Reactions Criticality Noted Date Comments Lidocaine *Unknown Low 01/28/2021 *topical only*- causes pain and burning Melatonin Other - Describe In Comment Field 04/22/2016 Had nightmares Trazodone Other - Describe In Comment Field 04/22/2016 Nightmares Medications potassium chloride (KLOR-CON 10; K-TAB) 10 mEq Controlled-Rele ase tablet Take 20 mEq by mouth once daily. Takes at noon. Active lipase-protease -amylase (Creon) 24,000-76,000 -120,000 unit cpDR Delayed-Release capsule Take 2-3 Capsules by mouth 3 times daily with meals. Dose = 2 capsules for regular size meal and 3 capsules for larger meal Active lipase-protease -amylase (Creon) 24,000-76,000 -120,000 unit cpDR Delayed-Release capsule Take 1-2 Capsules by mouth each time if needed for Supplement w/ Snack. Active naloxone (NARCAN) 4 mg/actuation nasal spray Inhale 1 [place] into affected nostril(s) each time if needed for Patient Diff To Arouse or Resp Rate < 8 / min. Additional doses may be given every 2 to 3 minutes until emergency medical assistance arrives. Active pantoprazole (PROTONIX) 40 mg delayed-release tablet Take 40 mg by mouth 2 times daily before meals. Active furosemide (LASIX) 20 mg tabletIndicatio ns:Cirrhosis of liver with ascites, unspecified hepatic cirrhosis type (HC) Take 2 Tablets (40 mg) by mouth every morning. 60 Tablet 1 Active lactulose 10 gram/15 mL solutionIndicat ions:Cirrhosis of liver with ascites, unspecified hepatic cirrhosis type (HC) Take 45 mL (30 g) by mouth 4 times daily. 4800 mL 3 1 Active spironolactone (ALDACTONE) 50 mg tabletIndicatio ns:Cirrhosis of liver with ascites, unspecified hepatic cirrhosis type (HC) Take 2 Tablets (100 mg) by mouth once daily. 60 Tablet 3 1 Active OLANzapine (ZYPREXA) 20 mg tabletIndicatio ns:Bipolar 1 disorder (HC) Take 1 Tablet (20 mg) by mouth at bedtime. 0 1 Active polyethylene glycol (MIRALAX; GLYCOLAX) 17 g powder for solutionIndicat ions:Bipolar 1 disorder (HC) Mix 17 g (1 Packet) in liquid then take by mouth 2 times daily. 0 1 Active Additional Information Patient taking differently:1 Packet OralBID PRN, Constipation, Reported on 05/20/2021 rifAXIMin (XIFAXAN) 550 mg tabletIndicatio ns:Cirrhosis of liver with ascites, unspecified hepatic cirrhosis type (HC) Take 1 Tablet (550 mg) by mouth 2 times daily. 0 1 Active hydrOXYzine pamoate (VISTARIL) 50 mg capsuleIndicati ons:Bipolar 1 disorder (HC) Take 1 Capsule (50 mg) by mouth at bedtime if needed for Anxiety. 30 Capsule 1 Active gabapentin (NEURONTIN) 300 mg capsule Take 300 mg by mouth. Take one capsule daily at bedtime for 7 days, then take one capsule two time daily. Active metroNIDAZOLE (FLAGYL) 500 mg tabletIndicatio ns:ABDOMEN/PELV IS INFECTION Take 1 Tablet (500 mg) by mouth 2 times daily. 14 Tablet 1 Active Midodrine HCl 10 mg tabletIndicatio ns:Altered mental status, unspecified altered mental status type,Other ascites,Left lower lobe pulmonary infiltrate Take 1 Tablet (10 mg) by mouth Three times daily at 8 AM, 12 PM, and 4 PM. 30 Tablet 1 1 Active cefdinir (OMNICEF) 300 mg capsuleIndicati ons:Left lower lobe pulmonary infiltrate Take 1 Capsule (300 mg) by mouth 2 times daily. 14 Capsule 1 Active acetaminophen (TYLENOL) 325 mg tabletIndicatio ns:Chronic bilateral low back pain without sciatica Take 2 Tablets (650 mg) by mouth every 6 hours if needed for Headache or Pain (For mild pain.). Max acetaminophen dose: 4000mg in 24 hrs. 100 Tablet 1 Active OLANzapine (ZYPREXA, FILM COATED TABLET,) 10 mg tabletIndicatio ns:Borderline personality disorder (HC) Take 1 Tablet (10 mg) by mouth every morning. 30 Tablet 5 1 Active Active Problems Problem Noted Date Diagnosed [...] Date Smoking Tobacco: Every Day Cigarettes 0.5 35.9 Started: 08/21/1988 Smokeless Tobacco: Never Tobacco Cessation:Counseling [...] Paying Living Expenses Not on file 06/02/2021 Comments No Sex and Gender Information Value Date Recorded Sex Assigned at Not on file Legal Sex Female 2:18 PM CDT Gender Identity Not on file Sexual Orientation Not on file Obstetrics History Last Filed Vital Signs Vital Sign Reading Time Taken Comments Blood Pressure 122/95 05/22/2021 4:50 PM DIRECTOR MARKETING ANALYTICS Pulse 96 05/22/2021 4:50 PM DIRECT[employer] MARKETING [employer]NALYT[employer] Temperature 37.4 C (99.4 F) 05/22/2021 4:50 PM [employer] MARKETING [employer]LYT[employer] Respiratory Rate 20 05/22/2021 4:50 PM DIRECT[employer] MARKETING ANALYT[employer] Oxygen Saturation 98% 05/22/2021 4:50 PM DIRECT[employer] MARKETING ANALYT[employer] Inhaled Oxygen Concentration - - Weight 52.3 kg (115 lb 3.2 oz) 05/20/2021 8:26 P M [employer] Height 157.5 cm (5' 2) 05/20/2021 8:26 PM [employer] MARKETING ANALY[employer] Body Mass Index 21.07 05/20/2021 8:26 PM DIRECT[employer] MARKETING ANALYT[employer] Plan of Treatment Health Maintenance Due Date Last Done Comments HIV for age 15-65 1989 Colonoscopy through age 75 2019 Mammogram for age 45-75 2019 BMI (ht and wt on same day) for age 18+ 09/08/2020 09/09/2019, 10/05/2018, 08/21/2018, Additional history exists Depression screening for age 12+ 04/03/2022 04/03/2021, 10/29/2018, 10/05/2018, Additional history exists COVID-19 vaccine series ( - season) 2024 Influenza for age 50-64 2024 03/31/20 19, 03/21/2018, 04/22/2016 Pneumococcal series for age 50+ (2 of 2 - PPSV23) 2024 10/11/2019 Zoster (shingles) series for age 50+ (1 of 2) 2024 Pap test for age 21-65 02/02/2025 , 02/02/2022, 08/31/2016 (Completed outside of [facility]) Lipids for age 45-75 04/06/2026 04/06/2021, 05/07/2018, 08/07/2017 Tetanus booster 02/07/2028 02/06/2018 Hepatitis C screening for age 18-79 Completed 08/10/2017, 08/10/2017, 08/07/2017 Tdap Completed 02/06/2018 Pneumococcal series for age 6-49 Aged Out 10/11/2019 No longer eligible based on patient's age to complete this topic Procedures Procedure Name Priority Date/Time Associated Diagnosis Comments POST CLOSING SPECIALIST THIN PREP PAP SCREEN IMAGED Routine 02/02/2022 10:30 AM CDT LIPID PANEL Timed 04/06/2021 5:51 AM CDT ANTI HCV Routine 08/10/2017 2:01 PM [employer]ET[employer] Hepatitis C virus infection without hepatic coma, unspecified chronicity from Last 3 Months or Most Recently Relevant to Health Maintenance Results * POST CLOSING SPECIALIST THIN PREP PAP SCREEN IMAGED (02/02/2022 10:30 AM CDT) Case Report Gynecologic Cytology Report Case: [id number] Authorizing Provider: Suzanna Allen MD Collected: 02/02/2022 1030 Ordering Location: [facility] Received: 02/02/2022 1639 First Screen: Donn Philip Pathologist: Perez Khanna MD Specimen: POST CLOSING SPECIALIST ThinPrep Vial Screening, Cervical 02/04/2022 12:24 PM CDT [facility] [employer] [facility] INTERPRETATION/ RESULT NEGATIVE FOR INTRAEPITHELIAL LESION OR MALIGNANCY (NIL) (none) 02/04/2022 12:24 PM CDT [facility] R NON-NEOPLASTIC FINDING(S) Reactive cellular changes associated with inflammation/repa ir 02/04/2022 12:24 PM CDT [facility] [employer] [facility] SPECIMEN ADEQUACY Satisfactory for evaluation Endocervical component present 02/04/2022 12:24 PM CDT [facility] HPV REQUEST HPV and PAP 02/04/2022 12:24 PM CDT [facility] Abnormal Pap or [place] Bx in last 5 years 02/04/2022 12:24 PM CDT [facility] Comment:unknown Menstrual Status Postmenopausal 02/04/2022 12:24 PM CDT [facility] [place] Bx Done Today Yes 02/04/2022 12:24 PM CDT [facility] Additional Information 02/04/2022 12:24 PM CDT [facility] Comment: Interpreted at [facility] Central Laboratory - [address], [place] [address] Automated Review Successful 02/04/2022 12:24 PM CDT [facility] Comment:Specimen processed s uccessfully by automated veterinary x ray operator device, ThinPrep Imaging System, [employer] ANCILLARY TESTING POST CLOSING SPECIALIST HPV Ordered, Please see separate report 02/04/2022 12:24 PM CDT [facility] Note The pap test is a screening technique, not a diagnostic procedure. It is used primarily to screen for squamous cancers and precursor lesions. Published studies have shown that it is subject to both false negative and false positive results. The pap test should not be used as the sole means to diagnose or exclude pre-malignant and malignant lesions. 02/04/2022 12:24 PM CDT [facility] Other (Cervical) 02/02/2022 10:30 AM CDT 02/02/2022 4:39 PM CDT us Suzanna Allen MD PATHOLOGY/CYTOLOGY Final R esult [facility] [address] [place] [address], * LIPID PANEL (04/06/2021 5:51 AM CDT) CHOLESTEROL,TOTAL 121 100 - 199 mg/dL 04/06/2021 6:51 AM CDT [facility] TRIGLYCERIDES 30 <150 mg/dL 04/06/2021 6:51 AM CDT [facility] HDL CHOLESTEROL 47 >40 mg/dL 6:51 AM CDT [facility] NON-HDL CHOLESTEROL 74 <145 mg/dl 04/06/2021 6:51 AM CDT [facility] CHOL/HDL RATIO 2.57 <4.50 04/06/2021 6:51 AM CDT [facility] LDL CHOLESTEROL 68 <=130 mg/dL 04/06/2021 6:51 AM CDT [facility] VLDL CHOLESTEROL 6 <=30 mg/dL 04/06/20 6:51 AM CDT [facility] PROVIDER ORDERED STATUS RANDOM 04/06/2021 6:51 AM CDT [facility] Blood BLOOD SPECIMEN / Unknown Venipuncture / Unknown 04/06/2021 5:51 AM CDT 04/06/2021 6:24 AM CDT us Adi Hardy MD CHEMISTRY Final Result [facility] [address] [place] [address] * (ABNORMAL) ANTI HCV (08/10/2017 2:01 PM DIRECT[employer] MARKETING [employer]LY[employer]) HEPATITIS C ANTIBODY Reactive, Preliminary Positive(A) Non-React stephen 08/11/2017 7:42 AM DIRECTOR MARKETING ANALYTICS [facility] Blood BLOOD SPECIMEN / Unknown Venipuncture / Unknown 08/10/2017 2:01 PM DIRECT[employer] MARKETING ANALYTICS 08/10/2017 2:01 PM [employer] MARKETING [employer]LYT[employer] Narrative [facility] - 08/11/2017 7:42 AM DIRECTOR MARKETING ANALYTICS Presumptive evidence of antibodies to HCV. Reflexed to HCV RNA Quant (See separate report). us Suzy Chua MD SEND OUTS Final Resul t [facility] [address] [place] [address], [place] from Last 3 Months or Most Recently Relevant to Health Maintenance Insurance [facility] Member Subscriber Plan / Payer (Ef fective 2018-Present) Name:Brittanie Correa Relation to Subscriber:Self Name:Brittanie Correa Payer ID:[id number] (NAIC) Group ID:[id number] Type:Not on file Address: [place] [id number] Advance Directives * Full Code (Latest Code [...] 6:01 AM 10/11/2019 6:52 PM Care Teams Controls Technician Relationship Specialty Start Date End Date Efrain Cortes MD [address] [place] [address] PCP - General Family Practice 10/04/19October, Ynes Ludwig, RN, BSN [address] [address] Cancer Nurse Coordinator Oncology 03/14/19
[2024-06-29 11:28] LABS: Albumin* 4.2 g/dL (3.3-5.0); Chloride* 103 mmol/L (96-114); Potassium* 3.9 mmol/L (3.6-5.1); Sodium* 136 mmol/L (135-149)
--- OUTSIDE RECORDS SUMMARY | 2024-06-29 11:28 | XMS_ITS | Encounter Summary ---
Author Organization [place] Address [facility] [place] [address] Care Team Providers Care Surgical Elastic Knitter Hand Frame Name Role Phone Dana Crook MD Primary Care Provid er Oz Matias MULTIGRAPH OPERATOR Unavailable Unknown, Provider Primary Care Provider [facility] Dana Crook MD Unavailable Dana Crook MD Unavailable [phone] No Ref-Primary, Physician Primary Care Provider Shabana Fu MD Primary Care Provider + [facility], [facility] Primary Care Provider Reason for Visit * Reason Comments Medication Refill Encounter Details Date Type Department Care Team (Late st Contact Info) Description 09/24/2016 Refill [facility] Mental Health & Addiction [facility] [address] [place] [address] Terri Donato, MIGRATION AGENT [address] [place] [address] Medication Refill Social History Tobacco Use Types Packs/Day Years Used Date Smoking Tobacco: Every Day Cigarettes 0.3 15 Smokeless Tobacco: Never Comments:a pack every 3 days Alcohol Use Standard Drinks/Week Comments No 0 (1 standard drink = 0.6 oz pur e alcohol) Comments No Sex and Gender Information Value Date Recorded Sex Assigned at Not on file Legal Sex Female 3:19 AM ENGINE REPAIR SUPERVISOR Gender Identity Not on file Sexual Orientation [...] be reached at: Home number on file [phone] Best Time: YESSY Can we leave a [...] Depression Total Score: 14 017 7:12 AM ENGINE REPAIR SUPERVISOR documented as of this encounter Care Teams Surgical Elastic Knitter Hand Frame Relationship Specialty Start Date End Date Dana Crook MD [address] [place] [address] PCP - General Internal Medicine 05/23/16 02/24/17 Unknown, Provider PCP - General 02/25/17 03/10/17 Dana Crook MD [address] [place] [address] PCP - Assigned PCP 03/24/16 08/14/18 No Ref-Primary, Physician PCP - General 03/12/19 03/21/19 Shabana Fu MD [facility] [address] [address] PCP - General Family Practice 03/22/19 03/22/[address] [address] PCP - General 03/23/20 Oz Matias, MULTIGRAPH OPERATOR Ad Operations Specialist 12/16/16 01/15/17 Dana Crook MD [address] [place] [address] Assigned PCP 03/24/16 09/07/19 documented as of this encounter
--- OUTSIDE RECORDS SUMMARY | 2024-06-29 11:28 | XMS_ITS | Clinical Summary ---
Author Organization [place] Address [address] [place] [address] Care Team Providers Care Deicer Tester Name Role Phone Clinic, [facility] Primary Care Provider Allergies Active Allergy Reactions Criticality Noted Date Comments Melatonin 04/22/2016 Had nightmares Trazodone 04/22/2016 Nightmares Medications * This document contains information received from the source organization and may not represent a complete record from that organization. METHADONE HCL IJIndications:pt goes to clinic qd taking 55mg per day Take 130 mg by mouth every morning Active metoprolol (TOPROL-XL) 50 MG 24 hr tabletIndications :Essential hypertension with goal blood pressure less than 140/90 Take 1 tablet (50 mg) by mouth daily 30 tablet 7 Active VENTOLIN HFA 108 (90 BASE) MCG/ACT Inhaler 1-2 puffs every 4 hours as needed 7 Active cloNIDine (CATAPRES) 0.1 MG tabletIndications :Essential hypertension with goal blood pressure less than 140/90 Take 1 tablet (0.1 mg) by mouth At Bedtime 30 tablet 1 7 Active FLUoxetine (PROZAC) 40 MG capsuleIndication s:Bipolar I disorder (H) Take 1 capsule (40 mg) by mouth daily 30 capsule 1 7 Active hydrochlorothiazi de (HYDRODIURIL) 25 MG tablet Take 25 mg by mouth daily Active Furosemide (LASIX PO) Active Active Problems Problem Noted Date Diagnosed [...] Answer Date Recorded PHQ-2 Score 2 06/19/2018 Comments No Sex and Gender Information Value Date Recorded Sex Assigned at Not on file Legal Sex Female 3:19 AM AGRICULTURAL EQUIPMENT SALESPERSON Gender Identity Not on file Sexual Orientation Not on file Last Filed Vital Signs Vital Sign Reading Time Taken Comments Blood Pressure 109/68 03/27/2020 10:25 AM CDT Pulse 68 03/27/2020 10:25 AM CDT Temperature 37.1 C (98.7 F) 03/27/2020 9:56 AM CDT Respiratory Rate 16 03/27/2020 10:25 AM CDT Oxygen Saturation 93% 03/27/2020 10:25 AM CDT Inhaled Oxygen Concentration - - Weight 59 kg (130 lb) 09/03/2019 12:00 PM CDT Height 158.8 cm (5' 2.5) 09/03/2019 12:00 PM CD T Body Mass Index 23.4 09/03/2019 12:00 PM CDT Plan of Treatment Not on file Medical Devices Explanted Type [employer] Science Teacher Device Identifier Shelf Expiration Date Model / Serial / Lot Cath [employer] Clearvue Slim 6fr [id number] 19 Implanted:Qty: 1 on 03/22/2019 by Alberto Bethea MD Explanted:Qty: 1 on 03/27/2020 by Alberto Bethea MD [employer] [id number] / / [id number] Care Teams Deicer Tester Relationship Specialty Start Date End Date [facility], [address] [address] PCP - General 03/23/20
--- OUTSIDE RECORDS SUMMARY | 2024-06-29 11:28 | XMS_ITS | Continuity of Care Document ---
Author Organization [facility] Address [address] [address] [place] [address] Care Team Providers Care Signs Cleaner Name Role Phone [place], [place] Unavailable Unav ailable Procedures Procedure Date Ugi En Advance Directives Directive Yes / No Effective Date File Name No Information Encounters Encounter Description Practice Location Reason(s) For Visit Diagnoses Date Provider Providers Copied on Encounter [facility], [address] [address], [place], [place], [id number], [place] [facility] No Information [facility]. [address] [address], [place], [place], [id number], . tel:[phone] Referring Provider: Aneta Mak MD K, [address] [facility] [address], [place], [address] . tel:[phone] Family History Family Member Type Diagnosis Age At Onset No Information Payers Payer name Insurance type Covered alliance party ID Pastor oneal(s) frank [facility] [id number] Social History Type Description Quantity Date Captured Comments Sex Female Smoking Status No Information Chief Complaint And Reason For Visit No Information Reason For Referral Reason For Referral No Information History Of Present Illness Encounter Date Complaint History Of Prese nt Illness No Information Functional Status Date Functional Assessmen t No Information Instructions Date Instruction Additional Infor mation No Information Assessments Type Assessment Date No Information Patient Care Teams Name Effective Dates (start - stop) Status Members No Information
--- OUTSIDE RECORDS SUMMARY | 2024-06-29 11:28 | XMS_ITS | Continuity of Care Document ---
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 - Active hydrocodone bitartrate ER 10 mg capsule, oral only, extended rel 12 hr take 0.5 capsule by oral route every 12 hours 5 MG - Active spironolactone 50 mg tablet take 1 tablet by oral route every day 50 MG - Active furosemide 20 mg tablet take 1 tablet by oral route 2 times every day 20 MG - Active Vitron-C 65 mg iron-125 mg tablet,delayed release take 1 tablet by oral route every day 1 tablet - Active Abilify 10 mg tablet take 1 tablet by oral route every day 10 MG - Active temazepam 15 mg capsule take 1 capsule b y oral route every day at bedtime as needed 15 MG - Active gabapentin 300 mg capsule take 1 Capsule by oral route 3 times every day as directed 300 MG - Active Procedures Procedure Date Ugi Endo; W/bx 1/mx Level Iv-surg Path Gross/micro 22 Offic/outpt E&m Estab Mod-hi 2 Routine Serum Collection Ugi Endo; W/bx 1/mx Ugi Endo; W/us Guid Asp/bx Ugi Endo; W/us Guid Asp/bx FibroScan Routine Serum Collection Gg; Iga, Igd, Igg, Igm, Ea Iron Iron Binding Capacity Gg; Ige Ferritin Hepatic Function Panel Offic/outpt E&m New Mod-hi Routine Serum Collection Hepatic Function Panel Prothrombin Time Bld Ct; Hg & Platelet Ct Autom 16 Advance Directives Directive Yes / No Effective Date File Name No Information Encounters Encounter Description Practice Location Reason(s) For Visit Diagnoses Date Provider Providers Copied on Encounter [facility], [address] [address], [place], [id number], [place] tel:[phone] [employer] No Information 2 Roberto Ramirez. [address] [place] [address], [id number], [place]. tel:[phone] [facility], [address] [address], [place], [id number], [place] tel:[phone] [facility] Abdominal pain, unspecified abdominal locationAlcoho lic cirrhosis of liver with ascitesSeconda ry esophageal varices without bleeding 2 Obdulio Cornell. [address] [place] [address], [id number], [place]. tel:[phone] Referring Provider: Referral Self, USE FOR SELF REFERRALS. [facility], [address] [address], [place], [id number], [place] tel:[phone] [employer] Elevated liver function tests 2 Roberto Ramirez. [address] [place] [address] [place], [address], [place], [place], [id number], [place]. tel:[phone] Offic/outpt E&m Estab Mod-hi 2 [facility], [address] [address], [place], [id number], [place] tel:[phone] [facility] GI Symptoms or Concerns (chief complaint) Ascites due to alcoholic cirrhosisGener alized abdominal painGastric ulcer with hemorrhage, unspecified chronicityRect al bleedingHistor y of hepatitis C 2 Roberto MATT Ashley. [address] [facility], [address], [place], [place], [id number], [place]. tel:[phone] Referring Provider: Andrea Blackwell MD, [address], [place], [place], [facility]. tel:[phone] [facility], [address] [address], [place], [place], [id number], [place] tel:[phone] No Information 2 No Information Referring Provider: Andrea Blackwell MD, [address], [place], [address]. tel:[phone] [facility], [address] [address], [place], [id number], [place] tel:[phone] [facility] Chronic gastric ulcer without hemorrhage and without perforation 0 Ashli Briggs [address] [facility], [facility] [address], [place], [place], [id number], [place]. tel:[phone] [facility], [address] [address], [place], [id number], [place] tel:[phone] [facility] No Information 0 Ashli Briggs [address] [facility], [facility] [address], [place], [place], [id number], [place]. tel:[phone] Referring Provider: Sweetie Cornelius MD, [address] [facility] [address], [place], [address] . tel:[phone] [facility], [address] [address], [place], [id number], [place] tel:[phone] [facility] No Information 0 Damon Abraham. [address] [facility], [address], [place], [place], [id number], [place]. tel: [phone] [facility], [address] [address], [place], [id number], [place] tel:[phone] [facility] Cancer, pancreas, body 0 9 Ashli Mittal. [address] [facility], [facility] [address], [place], [place], [id number], [place]. tel: [phone] [facility], [address] [address], [place], [id number], [place] tel:[phone] [facility] No Information 9 Ashli Mittal. [address] [facility], [facility] [address], [place], [place], [id number], [place]. tel:[phone] Referring Provider: Sweetie Cornelius MD, [address] [facility] [address], [place], [address] . tel:[phone] [facility], [address] [address], [place], [id number], [place] tel:[phone] [facility] Chronic viral hepatitis C Sep-0 7 Genesis Jaime. [address] [facility], [address], [place], [id number], [place]. tel:[phone] Referring Provider: Referral Self, USE FOR SELF REFERRALS. [facility], [address] [address], [place], [id number], [place] tel:[phone] [facility] Chronic hepatitis C without hepatic coma Aug-3 7 Julita Hayes. [address] [facility], [address], [place], [place], [id number], [place]. tel:[phone] [facility], [address] [address], [place], [id number], [place] tel:[phone] [facility] Abnormal levels of other serum enzymes 6 Beth Love. [address] [facility], [facility] [address], [place], [id number], [place]. tel:[phone] Referring Provider: Referral Self, USE FOR SELF REFERRALS. [facility], [address] [address], [place], [id number], [place] tel:[phone] [facility] Elevated liver enzymes 6 Beth Love. [address] [facility], [facility] [address], [place], [place], [id number], [place]. tel:[phone] Offic/outpt E&m New Mod-hi [facility], [address] [address], [place], [id number], [place] tel:[phone] [facility] GI Symptoms or Concerns (chief complaint) Chronic hepatitis C without hepatic coma 6 Beth Love. [address] [facility], [facility] [address], [place], [id number], [place]. tel:[phone] Referring Provider: Tanner Crook MD G, [address] [facility] [address] [facility], [place], [address]. tel:[phone] Family History Family Member Type Diagnosis Age At Onset Brother Problem (finding) alcoholism Brother Problem (finding) Cancer Daughter Problem (finding) Alive and well Father Problem (finding) alcoholism Brother Problem (finding) cancer of colon Brother Problem (finding) human immunodeficiency virus infection Son Problem (finding) Alive and well Mother Problem (finding) Thyroid disorder Mother Problem (finding) gallbladder disease Immunizations Vaccine Date Status Comments SARS-COV-2 (COVID-19) vaccin e, mRNA, spike protein, LNP, preservative free, 30 mcg/0.3mL dose, uzair-sucrose formulation administered Note: MII C bi- directional interface ; Source: Other Registry SARS-COV-2 (COVID-19) vaccin e, mRNA, spike protein, LNP, preservative free, 30 mcg/0.3mL dose, uzair-sucrose formulation administered Note: MII C bi- directional interface ; Source: Other Registry Afluria Qd administered Note: M IIC bi-directional interface ; Source: Other Registry meningococcal B vaccine, recombinant, OMV, adjuvanted administered Note: [facility] bi-directional interface ; Source: Other Registry meningococcal oligosaccharid e (groups A, C, Y and W-135) diphtheria toxoid conjugate vaccine (MCV4O) administered Note: MIIC bi-direct ional interface ; Source: Other Registry Prevnar 13 administered Note: [facility] bi-d irectional interface ; Source: Other Registry Haemophilus influenzae type b vaccine, PRP-OMP conjugate administered Note: [facility] bi -directional interface ; Source: Other Registry Afluria Qd administered Note: M IIC bi-directional interface ; Source: Other Registry Fluzone Quad 6mo or older administered Note: [facility]IC bi-direct ional interface ; Source: Other Registry influenza virus vaccine, unspecified formulation administered Note: [facility] bi-di rectional interface ; Source: Other Registry tetanus toxoid, reduced diphtheria toxoid, and acellular pertussis vaccine, adsorbed administered Note: [facility] b i-directional interface ; Source: Other Registry Influenza, injectable, quadrivalent, preservative free, 3 yrs or older administered Note: Invalid docume nted admin date was . ; Source: Other Provider Varicella administered Source: Other P rovider Payers Payer name Insurance type Covered democrat ID Authorjessicaa jm(s) Afshan LEYVA [id number] Social History Type Description Quantity Date Captured Comments Alcohol Use Details Unknown Caffeine Use Details Unknown Tobacco Use Status Smoking Status No Information Sex Female Chief Complaint And Reason For Visit No Information Reason For Referral Reason For Referral No Information Plan Of Treatment Date Type Action Status Referral Ordered: Liver Biopsy With Ultrasound Guidance Appointment date/timeframe: 09/03/2021 ordered Referral Ordered: Paracentesis Abdominal WITH Imaging Guidance; Diagnostic (Cell Count, Culture, Albumin) Appointment date/timeframe: 09/03/2021 ordered Referral Ordered: EGD Appointment date/timeframe: 11/06/2019 ordered Referral Ordered: referred to BRANDI ordered Referral Ordered: referred to Alberto or Puja DALEY ordered Future Order: Lab Order Antimito chondrial Ab (AMA), Qn ([id number]), Body Site: Right Antecubital Fossa, Ordered on: Ordered History Of Present Illness Encounter Date Complaint History Of Prese nt Illness GI Symptoms or Concerns Brittanie nam is a 46-year-old female seen today in follow-up of hospitalization for acute anemia. She is accompanied by her mother who helps provide history. Patient does also have a guardian who was supposed to be present for this visit but never arrived. Patient was previously seeing GI at [facility], however, would like to transfer GI care to [facility] to be closer to home. Patient has a very complex past medical history which is significant for Pancreatic adenocarcinoma s/p chemo, radiation and Whipple, likely cirrhosis, hepatitis C, Bipolar I and hypertension. Patient was recently hospitalized in May 2021 with acute GI bleeding, COVID-19 infection, altered mental status and weakness. Hemoglobin was found to be 3.1 on presentation to [facility] on 05/26/2021. She was subsequently transferred to [facility] for a higher level of care. She received multiple transfusions and GI bleed was treated conservatively with IV octreotide and PPI. She did not have any further concerns for blood in stool during hospitalization. No scopes were completed during hospitalization. Per review of [facility] GI note from 02/2021 patient had an unresected 10mm polyp at the hepatic flexure- they had recommended a single balloon enteroscopy with retroflexion for removal, however, it is unclear if this was ever completed. Most recently patient had hemoglobin checked with [facility] 07/07/2021 and it was 9.0 at this time. Patient denies any melena or maroon bowel movements since discharge. Reports she did have some bleeding with wiping a few days ago. Patient was also hospitalized in January of 2021 for hematemesis thought to be secondary to a marginal ulcer vs secondary obscure bleed. Has not had repeat EGD since then. Patient reports she was first told she had liver problems in [id number]. Reports previous heavy alcohol use, however, has been sober for several years. Prior to becoming sober drank 6-9beers nightly for about 4 years. 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 She had been on methadone but discontinued this 4-5 months ago. Patient has had issues with ascites which began after her Whipple in 2019. Reports she has gotten 3-4 paracenteses with the last being a couple months ago. Per records received from [facility], cytology has been checked on 3 occasions and has been negative for carcinomatosis. SAAG elevated and low total protein consistent with portal hypertension. Reports previous issues with significant edema of lower extremities that extended to the thighs. This has now resolved. She is taking Spironolactone 50mg daily and Lasix 20mg twice daily. She has previously been told to follow a low sodium diet, but has not been doing so. She reports she does not drink water- her fluid intake comes from Dr. Bhatia or [employer] soda. Reports drinking 4 cans daily. Reports abdominal pain that has been ongoing since admission in May. Pain is episodic and occasionally severe. Typically lasts a couple hours and improves with passing of gas. Abdomen is tender to the touch. Pt denies every being told she had an infection in her ascitic fluid. Reports chills. Denies fever since she had COVID. Patient reports a history of hepatitis C, however, has never received treatment. Per review of 02/25/2021 note with [facility] HCV RNA was negative in 2018. Patient reports she has never been treated for hepatitis C. Patient reports some issues with confusion; however, it is unclear if she has ever been on lactulose. Per record review it seems she was prescribed lactulose and rifaximin in the past but was not taking it so it was discontinued upon discharge from the hospital in May. She continues to have 3 soft bowel movements daily. Patient reports history of hypertension previously requiring medication; however, she is not taking anything currently. She is taking midodrine 10mg TID, however, it is unclear when this was started. Family HistoryBrother- colon cancer, HIVMother- gallbladder disease, hypothyroidismFather- alcoholism GI Symptoms or Concerns The dhruv alberta is a very pleasant 41-year-old woman who presents to GI Clinic today for consideration of treatment of her hepatitis C. The patient has a past medical history significant for drug abuse. She states she has undergone treatment and rehabilitation programs several times. She most recently used heroin seven to eight months ago, but states she has been sober from the drug since that time and is determined to maintain her sobriety. She did continue to use some liquid methadone after that, but has been sober for that for at least two months. The patient does not drink any alcohol. She does smoke. She does have a diagnosis of bipolar disorder and is planning on establishing care with her new psychiatrist next week. She returned home to [place] from [place] several months ago, and has maintained sobriety with the help of her parents.The patient is currently taking clonidine, hydrochlorothiazide, and metoprolol for blood pressure. She takes gabapentin as well for anx Functional Status Date Functional Assessmen t No Information Instructions Date Instruction Additional Infor manas -Labs today: liver f unction testing, kidney function, blood counts, Hepatitis B and Hepatitis C labs -Upper endoscopy to evaluate your previous bleeding ulcer and check for healing -I do also recommend a colonoscopy as a source of your bleeding during your last hospitalization was not identified. We can wait to see what your labs look like today before I order this. -If you experience dizziness and further bleeding you need to go to the hospital immediately. -Diagnostic paracentesis to look for an infection in the fluid in your abdomen- this could be causing your abdominal pain -Continue taking the diuretics (water pills)- Lasix and Aldactone as you have been- it seems like your current dose is working well to reduce swelling-I recommend a low sodium diet- you should limit your sodium intake to 2g daily -I also recommend water for fluid intake instead of soda as soda tends to have a significant amount of sodium-You can take Tylenol for pain, however, I recommend limiting this to less than 2500mg daily. -Follow up with Hepatology MD in about 1 month-Please contact my patient coordinator Tip with any questions or concerns. He can be reached at [phone] Related to Ascites due to alcoholic cirrhosis 1. Check Hepatitis C genotype and viral load2. Ultrasound of the liver and gallbladder3. FibroScan of the liver4. Clinic follow up in 6 weeks to confirm continued sobriety and discuss treatment options. Related to Chronic hepatitis C without hepatic coma Assessments Type Assessment Date No Information Patient Care Teams Name Effective Dates (start - stop) Status Members No Information
--- OUTSIDE RECORDS SUMMARY | 2024-06-29 11:28 | XMS_ITS | Encounter Summary ---
Author Organization [place] Address [address] [place] [address] Care Team Providers Care Sas Statistical Programmer Name Role Phone Dana Crook MD Unavailable [phone] No Ref-Primary, Physician Primary Care Provider Shabana Fu MD Primary Care Provider + [facility], Kimberly Tumtum Primary Care Provider Reason for Visit * Reason Onset Date Comments Appointment 03/19/2019 left message for patient to call [phone] to schedule an appointment with the IR dept @ [facility] Encounter Details Date Type Department Care Team (Late st Contact Info) Description 03/19/2019 Telephone [facility] [address] [place] [address] Delia Kevin RN Appointment (left message for patient to call [phone] to schedule an appointment with the IR dept @ [facility]) Social History Tobacco Use Types Packs/Day [...] on file Legal Sex Female 3:19 AM [employer]IAL WORK[employer] Gender Identity Not on file Sexual Orientation Not on file documented as of this encounter Plan of Treatment Not on file documented as of this encounter Visit Diagnoses Not on filedocumented in this encounter Additional Health Concerns Assessment Noted Time PHQ-9 Depression Total Score: 16 017 11:12 AM CDT documented as of this encounter Care Teams Sas Statistical Programmer Relationship Specialty Start Date End Date No Ref-Primary, Physician PCP - General 03/12/19 03/21/19 Shabana Fu MD [facility] [address] [address] PCP - General Family Practice 03/22/19 03/22/[address] [address] PCP - General 03/23/20 Dana Crook MD [address] [place] [address] Assigned PCP 03/24/16 09/07/19 documented as of this encounter
--- OUTSIDE RECORDS SUMMARY | 2024-06-29 11:28 | XMS_ITS | Continuity of Care Document ---
Author Organization [facility] Address [address] [place] [address] Phone Care Team Providers Care Instrument Repairer Helper Name Role Phone Bryanna Trejo MD Unavailable Unavailable Allergies, Adverse Reactions, Alerts Substance Reaction Status Criticality No Known Allergies Active No Inform ation No Known Allergies Active No Inform ation Medications Medication Instructions Dosage Effective Dates (start - stop) Status Comments clonidine HCl 0.2 mg tablet take 1 tablet by oral route 3 times every day 0.2 MG - Active Prozac 20 mg capsule take 1 capsule by o ral route every day in the morning 20 MG - Active gabapentin 300 mg capsule take 1 capsule by oral route 3 times every day 300 MG - Active Seroquel 50 mg tablet take 1 tablet by o ral route every bedtime everyday - Active Procedures Procedure Date MEDICAL RECORDS FEE MEDICAL RECORDS FEE OFFICE/OUTPATIENT VISIT, EST IMMUNIZATION ADMIN HEP B VACCINE, ADULT, IM IMMUNIZATION ADMIN HEP B VACCINE, ADULT, IM OFFICE/OUTPATIENT VISIT, EST OFFICE/OUTPATIENT VISIT, EST URINE TEST OFFICE/OUTPATIENT VISIT, EST OFFICE/OUTPATIENT VISIT, EST OFFICE/OUTPATIENT VISIT, EST OFFICE/OUTPATIENT VISIT, EST CA screen;pelvic/breast exam Obtaining screen pap smear Pap Smear OFFICE/OUTPATIENT VISIT, EST OFFICE/OUTPATIENT VISIT, EST OFFICE/OUTPATIENT VISIT, EST Brief Emotional/behavioral Assessment Au OFFICE/OUTPATIENT VISIT, EST Patient Not Seen Patient Not Seen ELECTROCARDIOGRAM, COMPLETE OFFICE/OUTPATIENT VISIT, EST SYST BP >= 140 MM HG6 IT DIAST BP >= 90 MM HG OFFICE/OUTPATIENT VISIT, EST Self-help/peer svc per 15min SMEAR, WET MOUNT, SALINE/INK Obtaining screen pap smear OFFICE/OUTPATIENT VISIT, EST Self-help/peer svc per 15min Self-help/peer svc per 15min Self-help/peer svc per 15min Self-help/peer svc per 15min OFFICE/OUTPATIENT VISIT, EST Self-help/peer svc per 15min Patient Not Seen Self-help/peer svc per 15min Self-help/peer svc per 15min OFFICE/OUTPATIENT VISIT, EST IMMUNIZATION ADMIN FLU VACC 4 DELL 3 YRS PLUS IM TB INTRADERMAL TEST OFFICE/OUTPATIENT VISIT, EST IMMUNIZATION ADMIN, EACH ADD TDAP VACCINE >7 IM Self-help/peer svc per 15min OFFICE/OUTPATIENT VISIT, EST OFFICE/OUTPATIENT VISIT, EST PSY DX INTERVIEW OFFICE/OUTPATIENT VISIT, EST Self-help/peer svc per 15min OFFICE/OUTPATIENT VISIT, EST Self-help/peer svc per 15min Self-help/peer svc per 15min Self-help/peer svc per 15min OFFICE/OUTPATIENT VISIT, EST OFFICE/OUTPATIENT VISIT, NEW OFFICE/OUTPATIENT VISIT, NEW Patient Not Seen Dental - EXT, simple Dental - Post Op Patient Not Seen Dental - Max CD Adjust Dental - Immediate Max Denture 10 Dental - Tx in Progress Dental - EXT, simple Dental - EXT, simple Dental - EXT, simple Dental - Initial Exam Dental - 1 PA X-ray Dental - Each Additional PA Dental - Each Additional PA Dental - Each Additional PA Dental - Each Additional PA Dental - Each Additional PA Dental - EXT, simple Dental - Pre-Pay Dental Dental - Oral ER Exam Dental - 1 PA X-ray Dental - EXT, simple Dental - EXT, simple Dental - EXT, simple Dental - EXT, simple Dental - EXT, simple Dental - EXT, surgical As per patient privacy policy some of the clinical information may not be visible. Advance Directives Directive Yes / No Effective Date File Name No Information Encounters Encounter Description Practice Location Reason(s) For Visit Diagnoses Date Provider Providers Copied on Encounter [facility], [address] [place] [address], [address], [place] tel: [phone] [facility] No Information 9 Maya Gould. [address] [place], [id number], [place]. tel:[phone] [facility], [address] [place] [address], [address], [place] tel:[phone] [facility] Adult Medicine No Information 7 Jae Zamarripa. [address] [place] [address], [id number], [place]. tel:[phone] OFFICE/OUTPA TIENT VISIT, [facility], [address] [place] [address], [address], [place] tel:[phone] [facility] menorragia (chief complaint)lei omyoma (chief complaint)vag inal discharge (chief complaint) LeiomyomaVagi nal dischargeMeno rrhagia with regular cycle 6 Pranger Bryanna. [address] [place], [place], [id number], [place]. tel:[phone] Referring Provider: Urmila Ramirez, [address] [place] [address], [address] . tel:[phone] [facility], [address] [place] [address], [address], [place] tel:[phone] [facility] Adult Medicine No Information 6 Rowe Dallin. [address] [place] [address], [id number], [place]. tel:[phone] [facility], [address] [place] [address], [address], [place] tel: [phone] [facility] Adult Medicine 2nd Hep B Vaccine (chief complaint) No Information 6 Rowe Dallin. [address] [place] [address], [id number], [place]. tel:[phone] OFFICE/OUTPA TIENT VISIT, [facility], [address] [place] [address], [address], [place] tel:[phone] [facility] Adult Medicine lymphadenoapt hy (chief complaint)dakota ght loss (chief complaint) Lymphadenopat hyHepatitis C antibody positive in bloodLeiomyom a 6 Rowe Dallin. [address] [place] [address], [id number], [place]. tel:[phone] [facility], [address] [place] [address], [address], [place] tel:[phone] [facility] Adult Medicine No Information 6 Rowe Dallin. [address] [place], [place], [id number], [place]. tel:[phone] OFFICE/OUTPA TIENT VISIT, [facility], [address] [place] [address], [address], [place] tel:[phone] [facility] Adult Medicine anxiety/depre ssion (chief complaint)dakota ght loss (chief complaint)vag inal discharge (chief complaint) Weight lossVaginal discharge 6 Rowe Dallin. [address], [place], [id number], [place]. tel:[phone] OFFICE/OUTPA TIENT VISIT, [facility], [address] [place] [address], [address], [place] tel:[phone] [facility] Adult Medicine Paperwork (chief complaint)bip olar disorder (chief complaint) Bipolar affective disorder, currently depressed, moderate 0 6 Rowe Dallin. [address] [place] [address], [id number], [place]. tel:[phone] OFFICE/OUTPA TIENT VISIT, [facility], [address] [place] [address], [address], [place] tel:[phone] [facility] Adult Medicine Bipolar disorder (chief complaint)Hea vy menstrual bleeding (chief complaint) Bipolar disorder, in partial remission, most recent episode mixedDysfunct ional uterine bleeding Sep- 2 6 Rowe Dallin. [address], [place], [id number], [place]. tel:[phone] [facility], [address] [place] [address], [address], [place] tel:[phone] [facility] Adult Medicine No Information Sep-0 6 Rowe Dallin. [address], [place], [id number], [place]. tel:[phone] OFFICE/OUTPA TIENT VISIT, [facility], [address] [place] [address], [address], [place] tel:[phone] [facility] Adult Medicine Bipolar disorder (IM) (chief complaint) Bipolar disorder, current episode mixed, mildBacterial vaginosis 6 Rowe Dallin. [address] [place], [place], [id number], [place]. tel:[phone] OFFICE/OUTPA TIENT VISIT, EST [facility], [address] [place], [address], [place] tel:[phone] [facility] Adult Medicine PAP (chief complaint) Encounter for routine gynecological examination with Papanicolaou smear of cervixScreeni ng Aug- 6 Ashley Kearns. [address] [place], [place], [id number], [place]. tel:[phone] OFFICE/OUTPA TIENT VISIT, EST [facility], [address] [place], [address], [place] tel:[phone] [facility] Adult Medicine neck pain (chief complaint)bip olar disorder (chief complaint) Neck painMidline thoracic back painBipolar affective disorder, currently manic, severe, with psychotic features 6 Rowe Dallin. [address] [place], [place], [id number], [place]. tel:[phone] OFFICE/OUTPA TIENT VISIT, [facility], [address] [place], [address], [place] tel:[phone] [facility] Adult Medicine Ear fullness (chief complaint)Bip olar disorder (chief complaint) Ear fullness, bilateralBipo lar affective disorder in remissionScre ening for STD (sexually transmitted disease) 5 Rowe Dallin. [address] [place], [place], [id number], [place]. tel:[phone] [facility], [address] [place] [address], [address], [place] tel:[phone] [facility] Opioid use disorder, severe, dependenceSed ative, hypnotic or anxiolytic use disorder, severe, dependenceHis tory of borderline personality disorder 5 Sierra Quick. [address] [place], [place], [id number], [place]. tel:[phone] [facility], [address], [address], [place] tel:[phone] [facility] Opioid use disorder, severe, in early remission, dependenceSed ative, hypnotic or anxiolytic use disorder, severe, dependence Oct-1 4-201 5 Sierra Quick. [address] [place], [place], [id number], [place]. tel:[phone] [facility], [address], [address], [place] tel:[phone] [facility] No Information Oct-0 6-201 5 Darian Haines. [address] [place], [id number], [place]. tel:[phone] [facility], [address] [place], [place] [address] [place], [address], [place] tel:[phone] [facility] No Information Oct-0 5-201 5 Darian Haines. [address] [place], [place], [id number], [place]. tel:[phone] [facility], [address] [place], [place] [address] [place], [address], [place] tel:[phone] [facility] No Information Oct-0 3-201 5 Darian Haines. [address] [place], [id number], [place]. tel:[phone] [facility], [address], [address], [place] tel:+ [phone] [facility] No Information Oct-0 1-201 5 Darian Haines. [address] [place], [place], [id number], [place]. tel:[phone] [facility], [address], [address], [place] tel:+ [phone] [facility] No Information Sep-3 0-201 5 Darian Haines. [address] [place], [place], [id number], [place]. tel:[phone] [facility], [address], [place], [address], [place] tel:[phone] [facility] No Information Sep-2 9-201 5 Farmer Zaki. [address], [place], [place], [id number], [place]. tel:[phone] [facility], [address], [place], [address], [place] tel:+ [phone] [facility] No Information Sep-2 8 5 Darian Zaki. [address], [place], [place], [id number], [place]. tel:[phone] [facility], [address], [place], [address], [place] tel:+ [phone] [facility] No Information Sep-2 6 5 Farmer Zaki. [address], [place], [place], [id number], [place]. tel:[phone] [facility], [address], [place], [address], [place] tel:+ [phone] [facility] No Information Sep-2 5- 5 Farmer Zaki. [address], [place], [place], [id number], [place]. tel:[phone] [facility], [address], [place], [address], [place] tel:+ [phone] [facility] No Information Sep-2 4-201 5 Farmer Zaki. [address], [place], [place], [id number], [place]. tel:[phone] [facility], [address], [place], [address], [place] tel:[phone] [facility] No Information Sep-2 3-201 5 Farmer Zaki. [address], [place], [place], [id number], [place]. tel:[phone] [facility], [address], [place], [address], [place] tel:+ [phone] [facility] No Information Sep-2 2 5 Darian Haines. [address], [place], [place], [id number], [place]. tel:[phone] [facility], [address], [place], [address], [place] tel:+ [phone] [facility] No Information Sep-2 - 5 Darian Haines. [address], [place], [place], [id number], [place]. tel:[phone] [facility], [address], [place], [address], [place] tel:+ [phone] [facility] No Information Sep-1 5 Darian Haines. [address], [place], [place], [id number], [place]. tel:[phone] [facility], [address], [place], [address], [place] tel:+ [phone] [facility] No Information Sep-1 5 Darian Haines. [address], [place], [place], [id number], [place]. tel:[phone] [facility], [address], [place], [address], [place] tel:+ [phone] [facility] No Information Sep-1 5 Darian Haines. [address], [place], [place], [id number], [place]. tel:+ [phone] [facility], [address], [place], [address], [place] tel:[phone] [facility] No Information Sep-1 - 5 Darian Haines. [address], [place], [place], [id number], [place]. tel:[phone] [facility], [address], [place], [address], [place] tel:+ [phone] [facility] No Information Sep-1 4-201 5 Darian Zaki. [address], [place], [place], [id number], [place]. tel:[phone] [facility], [address] , [place], [address], [place] tel:+ [phone] [facility] No Information Sep-1 2-201 5 Darian Zaki. [address], [place], [place], [id number], [place]. tel:[phone] [facility], [address] , [place], [address], [place] tel:+ [phone] [facility] No Information Sep-1 1-201 5 Darian Zaki. [address], [place], [place], [id number], [place]. tel:[phone] [facility], [address], [address], [place] tel:+ [phone] [facility] No Information Sep-0 9-201 5 Darian Zaki. [address], [place], [place], [id number], [place]. tel:[phone] [facility], [address], [address], [place] tel:+ [phone] [facility] No Information Sep-0 8-201 5 Darian Zaki. [address] [place], [id number], [place]. tel:[phone] [facility], [address] , [place], [address], [place] tel:+ [phone] [facility] No Information Sep-0 5-201 5 Darian Zaki. [address] [place], [id number], [place]. tel:[phone] [facility], [address] , [place], [address], [place] tel:+ [phone] [facility] No Information Sep-0 4-201 5 Darian Haines. [address], [place], [place], [id number], [place]. tel:[phone] [facility], [address], [address], [place] tel:+ [phone] [facility] No Information Sep-0 5 Darian Zaki. [address] [place], [place], [address], [place]. tel:[phone] [facility], [address], [address], [place] tel:+ [phone] [facility] No Information Sep-0 5 Darian Haines. [address] , [place], [place], [id number], [place]. tel:[phone] [facility], [address], [address], [place] tel:+ [phone] [facility] No Information Sep-0 5 Darian Haines. [address] [place], [place], [id number], [place]. tel:[phone] [facility], [address], [address], [place] tel:+ [phone] [facility] No Information 5 Darian Haines. [address] [place], [place], [id number], [place]. tel:[phone] OFFICE/OUTPA TIENT VISIT, EST [facility], [address], [address], [place] tel:+ [phone] [facility] substance abuse (chief complaint) Opioid dependence 5 Alvino Miller. [address] [place], [place], [id number], [place]. tel:[phone] [facility], [address], [address], [place] tel:+ [phone] [facility] No Information Jan- 5 Darian Haines. [address], [place], [place], [id number], [place]. tel:[phone] [facility], [address], [place], [address], [place] tel:[phone] [facility] No Information Jan- 5 Darian Haines. [address], [place], [place], [id number], [place]. tel:[phone] [facility], [address], [place], [address], [place] tel:[phone] [facility] No Information 5 Darian Haines. [address], [place], [place], [id number], [place]. tel:[phone] [facility], [address], [place], [address], [place] tel:[phone] [facility] No Information Jan-2 5 Darian Haines. [address], [place], [place], [id number], [place]. tel:[phone] [facility], [address], [place], [address], [place] tel:[phone] [facility] No Information Jan-2 5 Darian Haines. [address], [place], [place], [id number], [place]. tel:[phone] [facility], [address], [place], [address], [place] tel:[phone] [facility] No Information Jan-2 5 Darian Haines. [address], [place], [place], [id number], [place]. tel:[phone] [facility], [address], [place], [address], [place] tel:[phone] [facility] No Information Jan-2 5 Darian Haines. [address], [place], [place], [id number], [place]. tel:[phone] [facility], [address] , [place], [address], [place] tel:+ [phone] [facility] No Information 5 Darian Haines. [address], [place], [place], [id number], [place]. tel:[phone] [facility], [address] , [place], [address], [place] tel:+ [phone] [facility] Opioid dependenceSed ative, hypnotic or anxiolytic abuse, unspecifiedCa nnabis abuseAnxiety and depressionDef erred condition on axis IIBipolar disorder 5 Sierra Quick. [address] [place], [place], [id number], [place]. tel:[phone] [facility], [address], [address], [place] tel:+ [phone] [facility] No Information 5 Darian Haines. [address] [place], [place], [id number], [place]. tel:[phone] [facility], [address] , [place], [address], [place] tel:+ [phone] [facility] No Information Darian Haines. [address] [place], [place], [id number], [place]. tel:[phone] [facility], [address] , [place], [address], [place] tel:+ [phone] [facility] No Information Darian Haines. [address], [place], [place], [id number], [place]. tel:[phone] [facility], [address] , [place], [address], [place] tel:+ [phone] [facility] No Information 5 Darian Haines. [address], [place], [place], [id number], [place]. tel:[phone] [facility], [address], [place], [address], [place] tel:+ [phone] [facility] No Information Jan-06 16- 5 Darian Zaki. [address], [place], [place], [id number], [place]. tel:[phone] [facility], [address] , [place], [address], [place] tel:+ [phone] [facility] No Information 5 Darian Haines. [address], [place], [place], [id number], [place]. tel:[phone] [facility], [address] , [place], [address], [place] tel:+ [phone] [facility] No Information 5 Darian Haines. [address], [place], [place], [id number], [place]. tel:[phone] [facility], [address] , [place], [address], [place] tel:+ [phone] [facility] No Information 5 Darian Haines. [address] [place], [id number], [place]. tel:+ [phone] [facility], [address], [place], [address], [place] tel:[phone] [facility] No Information 5 Darian Haines. [address], [place], [place], [id number], [place]. tel:[phone] [facility], [address] , [place], [address], [place] tel:[phone] [facility] No Information Jan- 0- 5 Darian Haines. [address], [place], [place], [id number], [place]. tel:+ [phone] [facility], [address] , [place], [address], [place] tel:+ [phone] [facility] No Information Aug-0 8 5 Darian Haines. [address] [place], [place], [address], [place]. tel:+ [phone] [facility], [address] , [place], [address], [place] tel:+ [phone] [facility] No Information Aug-0 7201 5 Darian Haines. [address] [place], [place], [id number], [place]. tel:[phone] [facility], [address] , [place], [address], [place] tel:+ [phone] [facility] No Information Aug-0 6 5 Darian Haines. [address] [place], [place], [id number], [place]. tel:[phone] [facility], [address], [address], [place] tel:+ [phone] [facility] No Information Aug-0 5 5 Darian Haines. [address] [place], [id number], [place]. tel:[phone] [facility], [address] [place], [address], [place] tel:+ [phone] [facility] Opioid dependenceSed ative, hypnotic or anxiolytic abuse, unspecifiedCa nnabis abuseAnxiety and depressionDef erred condition on axis II Aug-0 3- 5 Sierra Quick. [address] [place], [place], [id number], [place]. tel:[phone] [facility], [address], [address], [place] tel:+ [phone] [facility] No Information Aug-0 3-201 5 Darian Haines. [address], [place], [place], [address], [place]. tel:+ [phone] [facility], [address], [place], [address], [place] tel:+ [phone] [facility] No Information 5 Farmer Zaki. [address], [place], [place], [address], [place]. tel:+ [phone] [facility], [address] , [place], [address], [place] tel:+ [phone] [facility] No Information 5 Farmer Zaki. [address], [place], [place], [id number], [place]. tel:[phone] [facility], [address] , [place], [address], [place] tel:+ [phone] [facility] No Information 5 Farmer Zaki. [address], [place], [place], [address], [place]. tel:+ [phone] [facility], [address] , [place], [address], [place] tel:+ [phone] [facility] No Information 5 Farmer Zaki. [address], [place], [place], [address], [place]. tel:+ [phone] [facility], [address] , [place], [address], [place] tel:+ [phone] [facility] No Information 5 Farmer Zaki. [address], [place], [place], [id number], [place]. tel:[phone] [facility], [address] , [place], [address], [place] tel:+ [phone] [facility] No Information 5 Farmer Zaki. [address], [place], [place], [id number], [place]. tel:+ [phone] [facility], [address], [place], [address], [place] tel:+ [phone] [facility] No Information - 5 Farmer Zaki. [address], [place], [place], [address], [place]. tel:+ [phone] [facility], [address], [place], [address], [place] tel:+ [phone] [facility] No Information 5 Farmer Zaki. [address], [place], [place], [address], [place]. tel:+ [phone] [facility], [address], [place], [address], [place] tel:+ [phone] [facility] No Information 5 Farmer Zaki. [address], [place], [place], [address], [place]. tel:+ [phone] [facility], [address], [place], [address], [place] tel:+ [phone] [facility] No Information 5 Farmer Zaki. [address], [place], [place], [id number], [place]. tel:+ [phone] [facility], [address], [place], [address], [place] tel:+ [phone] [facility] No Information 5 Farmer Zaki. [address], [place], [place], [id number], [place]. tel:[phone] [facility], [address], [place], [address], [place] tel:+ [phone] [facility] No Information 0- 5 Farmer Zaki. [address], [place], [place], [address], [place]. tel:[phone] [facility], [address], [place], [address], [place] tel:+ [phone] [facility] No Information 5 Farmer Zaki. [address], [place], [place], [id number], [place]. tel:+ [phone] [facility], [address], [place], [address], [place] tel:+ [phone] [facility] No Information 5 Farmer Zaki. [address], [place], [place], [id number], [place]. tel:+ [phone] [facility], [address], [place], [address], [place] tel:+ [phone] [facility] No Information 5 Farmer Zaki. [address], [place], [place], [id number], [place]. tel:+ [phone] [facility], [address], [place], [address], [place] tel:+ [phone] [facility] No Information 5 Farmer Zaik. [address], [place], [place], [address], [place]. tel:+ [phone] [facility], [address] , [place], [address], [place] tel:+ [phone] [facility] No Information 5 Farmer Zaki. [address], [place], [place], [address], [place]. tel:+ [phone] [facility], [address], [place], [address], [place] tel:+ [phone] [facility] No Information 5 Farmer Zaki. [address], [place], [place], [id number], [place]. tel:+ [phone] [facility], [address], [place], [address], [place] tel:+ [phone] [facility] No Information Rene-1 1-201 5 Farmer Zaki. [address], [place], [place], [address], [place]. tel:[phone] [facility], [address] , [place], [address], [place] tel:+ [phone] [facility] No Information Dec-1 0-201 5 Farmer Zaki. [address], [place], [place], [id number], [place]. tel:[phone] [facility], [address] , [place], [address], [place] tel:+ [phone] [facility] No Information Dec-0 8-201 5 Farmer Zaki. [address] , [place], [place], [id number], [place]. tel:[phone] [facility], [address], [address], [place] tel:+ [phone] [facility] No Information Dec-0 7-201 5 Farmer Zaki. [address] , [place], [place], [id number], [place]. tel:[phone] [facility], [address], [address], [place] tel:+ [phone] [facility] No Information Dec-0 6-201 5 Farmer Zaki. [address] [place], [place], [id number], [place]. tel:[phone] [facility], [address], [address], [place] tel:[phone] [facility] No Information Dec-0 3-201 5 Farmer Zaki. [address] [place], [place], [id number], [place]. tel:[phone] [facility], [address] , [place], [address], [place] tel:+ [phone] [facility] No Information Rene-0 2-201 5 Farmer Zaki. [address] [place], [place], [address], [place]. tel:[phone] [facility], [address], [address], [place] tel:+ [phone] [facility] Opioid dependenceSed ative, hypnotic or anxiolytic abuse, unspecifiedCa nnabis abuseAnxiety and depressionDef erred condition on axis II 5 Sierra Quick. [address] [place], [place], [id number], [place]. tel:[phone] [facility], [address], [address], [place] tel:+ [phone] [facility] No Information 5 Darian Haines. [address] [place], [place], [id number], [place]. tel:[phone] [facility], [address] [place] [address], [address], [place] tel:+ [phone] [facility] No Information 5 Darian Haines. [address] [place], [place], [id number], [place]. tel:[phone] [facility], [address] [place] [address], [address], [place] tel:+ [phone] [facility] No Information 5 Darian Haines. [address] [place], [place], [id number], [place]. tel:[phone] OFFICE/OUTPA TIENT VISIT, EST [facility], [address] [place], [place] [address] [place], [address], [place] tel:+ [phone] [facility] substance abuse (chief complaint) Opioid dependence 5 Max Hector. [address] [place], [place], [id number], [place]. tel:[phone] [facility], [address] [place] [address], [address], [place] tel:+ [phone] [facility] No Information Gio-2 7-201 5 Farmer Zaki. [address], [place], [place], [id number], [place]. tel:[phone] [facility], [address] , [place], [address], [place] tel:[phone] [facility] No Information Gio-2 6-201 5 Farmer Zaki. [address], [place], [place], [address], [place]. tel:[phone] [facility], [address] , [place], [address], [place] tel:+ [phone] [facility] No Information Gio-2 5-201 5 Farmer Zaki. [address] , [place], [place], [address], [place]. tel:[phone] [facility], [address], [address], [place] tel:+ [phone] [facility] No Information Gio-2 4-201 5 Farmer Zaki. [address] [place], [place], [address], [place]. tel:[phone] [facility], [address], [address], [place] tel:[phone] [facility] No Information Gio-2 3-201 5 Farmer Zaki. [address] [place], [place], [address], [place]. tel:[phone] [facility], [address], [address], [place] tel:[phone] [facility] No Information Gio-2 2-201 5 Farmer Zaki. [address] , [place], [place], [id number], [place]. tel:[phone] [facility], [address] , [place], [address], [place] tel:[phone] [facility] No Information Goi-2 0-201 5 Farmer Zaki. [address], [place], [place], [id number], [place]. tel:[phone] [facility], [address], [address], [place] tel:+ [phone] [facility] No Information 5 Darian Haines. [address] [place], [place], [id number], [place]. tel:[phone] [facility], [address] , [place], [address], [place] tel:+ [phone] [facility] No Information 5 Darian Haines. [address] [place], [place], [address], [place]. tel:[phone] [facility], [address], [address], [place] tel:+ [phone] [facility] Opioid dependenceCan nabis abuseSedative , hypnotic or anxiolytic abuse, unspecifiedPo st traumatic stress disorderBorde rline personality disorder 5 Sierra Quick. [address] [place], [place], [address], [place]. tel:[phone] [facility], [address], [address], [place] tel:+ [phone] [facility] No Information 5 Darian Haines. [address] [place], [place], [address], [place]. tel:[phone] [facility], [address], [address], [place] tel:+ [phone] [facility] No Information 5 Darian Haines. [address] [place], [place], [address], [place]. tel:[phone] [facility], [address] , [place], [address], US tel:+ [phone] [facility] No Information Gio-1 5-201 5 Farmer Zaki. [address], [place], [place], [address], [place]. tel:[phone] [facility], [address], [place], [address], [place] tel:[phone] [facility] No Information Gio-1 3-201 5 Farmer Zaki. [address], [place], [place], [address], [place]. tel:[phone] [facility], [address], [place], [address], [place] tel:+ [phone] [facility] No Information Gio-1 2-201 5 Farmer Zaki. [address], [place], [place], [address], [place]. tel:[phone] [facility], [address], [address], [place] tel:+ [phone] [facility] No Information Gio-1 1-201 5 No Information [facility], [address] , [place], [address], [place] tel:+ [phone] [facility] No Information Gio-1 1-201 5 Farmer Zaki. [address], [place], [place], [address], [place]. tel:[phone] [facility], [address], [address], [place] tel:+ [phone] [facility] No Information Gio-1 0-201 5 Farmer Zaki. [address] [place], [address], [place]. tel:[phone] [facility], [address], [place], [address], [place] tel:[phone] [facility] No Information Gio-0 9-201 5 Farmer Zaki. [address], [place], [place], [address], [place]. tel:[phone] [facility], [address], [place], [address], [place] tel:+ [phone] [facility] No Information Gio-0 8-201 5 Farmer Zaki. [address] [place], [place], [address], [place]. tel:[phone] [facility], [address] , [place], [address], US tel:+ [phone] [facility] No Information Gio-0 6-201 5 Farmer Zaki. [address] [place], [place], [address], [place]. tel:[phone] [facility], [address], [address], US tel:+ [phone] [facility] No Information Gio-0 5-201 5 Darian Haines. [address] [place], [address], [place]. tel:[phone] [facility], [address], [address], [place] tel:+ [phone] [facility] No Information Gio-0 4-201 5 Farmer Zaki. [address] [place], [place], [address], [place]. tel:[phone] [facility], [address], [address], [place] tel:+ [phone] [facility] No Information Gio-0 3-201 5 Lucía Schulz. [address] [place], [place], [address], [place]. tel:[phone] [facility], [address], [address], [place] tel:[phone] [facility] No Information Gio-0 3-201 5 Sierra Quick. [address] [place], [address], [place]. tel:[phone] [facility], [address], [address], [place] tel:+ [phone] [facility] No Information Gio-0 3-201 5 Darian Haines. [address] [place], [address], [place]. tel:[phone] [facility], [address] [place], [address], [place] tel:[phone] [facility] No Information 5 Farmer Zaki. [address] [place], [address], [place]. tel:[phone] [facility], [address] [place], [address], [place] tel:[phone] [facility] No Information 5 Farmer Zaki. [address] [place], [address], [place]. tel:[phone] [facility], [address] [place], [address], [place] tel:[phone] [facility] No Information 5 Darian Zaki. [address] [place], [place], [address], [place]. tel:[phone] OFFICE/OUTPA TIENT VISIT, EST [facility], [address] [place] [address], [address], [place] tel:[phone] [facility] Adult Medicine bipolar (chief complaint)anx iety (chief complaint)HTN (chief complaint) Bipolar disorderUnspe cified essential hypertensionC hest pain 5 Rowe Dallin. [address] [place], [place], [address], [place]. tel:[phone] [facility], [address] [place] [address], [address], [place] tel:[phone] [facility] No Information 5 Darian Haines. [address] [place], [place], [address], [place]. tel:[phone] [facility], [address] [place] [address], [address], [place] tel:[phone] [facility] No Information May-2 8-201 5 Farmer Zaki. [address] , [place], [place], [address], [place]. tel:[phone] [facility], [address] , [place], [address], [place] tel:+ [phone] [facility] No Information May-2 7-201 5 Farmer Zaki. [address], [place], [place], [address], [place]. tel:[phone] [facility], [address] , [place], [address], US tel:+ [phone] [facility] No Information May-2 6-201 5 Farmer Zaki. [address] , [place], [place], [address], [place]. tel:[phone] [facility], [address], [address], US tel:+ [phone] [facility] No Information May-2 3-201 5 Farmer Zaki. [address] , [place], [place], [address], [place]. tel:[phone] [facility], [address], [address], US tel:+ [phone] [facility] No Information May-2 2-201 5 Farmer Zaki. [address] [place], [place], [address], [place]. tel:[phone] [facility], [address], [address], [place] tel:[phone] [facility] No Information May-2 1-201 5 Farmer Zaki. [address] [place], [place], [address], [place]. tel:[phone] [facility], [address] , [place], [address], [place] tel:+ [phone] [facility] No Information May-2 0-201 5 Farmer Zaki. [address] [place], [address], [place]. tel:[phone] [facility], [address], [address], [place] tel:[phone] [facility] No Information October-1 9-201 5 Guille Luke. [address] [place], [place], [address], [place]. tel:[phone] [facility], [address], [address], [place] tel:[phone] [facility] No Information October-1 8-201 5 Guille Luke. [address] [place], [place], [address], [place]. tel:[phone] [facility], [address], [address], [place] tel:[phone] [facility] No Information October-1 6-201 5 Guille Luke. [address] [place], [place], [address], [place]. tel:[phone] [facility], [address], [address], [place] tel:[phone] [facility] No Information October-1 5-201 5 Southmayd Luke. [address] [place], [place], [address], [place]. tel:[phone] [facility], [address], [address], [place] tel:[phone] [facility] No Information May-1 4-201 5 Guille Luke. [address] [place], [place], [address], [place]. tel:[phone] [facility], [address], [address], [place] tel:[phone] [facility] No Information May-1 3-201 5 Sierra Quick. [address] [place], [place], [address], [place]. tel:[phone] [facility], [address], [address], US tel:+ [phone] [facility] No Information May-1 3-201 5 Guille Luke. [address] [place], [place], [address], [place]. tel:[phone] [facility], [address], [address], US tel:+ [phone] [facility] No Information May-1 2-201 5 Southmayd Luke. [address] [place], [place], [address], [place]. tel:[phone] [facility], [address], [address], [place] tel:+ [phone] [facility] No Information May-1 1-201 5 Guille Luke. [address] [place], [place], [address], [place]. tel:[phone] [facility], [address], [address], [place] tel:+ [phone] [facility] No Information May-0 9-201 5 Southmayd Luke. [address] [place], [place], [address], [place]. tel:[phone] [facility], [address], [address], US tel:+ [phone] [facility] No Information May-0 8-201 5 Southmayd Luke. [address] [place], [place], [address], [place]. tel:[phone] [facility], [address], [address], US tel:+ [phone] [facility] No Information May-0 7-201 5 Guille Luke. [address] [place], [place], [address], [place]. tel:[phone] [facility], [address], [address], [place] tel:[phone] [facility] No Information May-0 6-201 5 Guille Luke. [address] [place], [place], [address], [place]. tel:[phone] [facility], [address], [address], US tel:+ [phone] [facility] No Information May-0 5-201 5 Southmayd Luke. [address] [place], [place], [address], [place]. tel:[phone] [facility], [address], [address], US tel:+ [phone] [facility] No Information May-0 4-201 5 Southmayd Luke. [address] [place], [place], [address], [place]. tel:[phone] [facility], [address], [address], [place] tel:+ [phone] [facility] No Information May-0 2-201 5 Guille Luke. [address] [place], [place], [address], [place]. tel:[phone] [facility], [address], [address], US tel:+ [phone] [facility] No Information May-0 1-201 5 Guille Luke. [address] [place], [place], [address], [place]. tel:[phone] [facility], [address], [address], [place] tel:[phone] [facility] No Information Apr-3 0-201 5 Southmayd Luke. [address] [place], [place], [address], [place]. tel:[phone] [facility], [address], [address], [place] tel:[phone] [facility] No Information Apr-2 9-201 5 Southmayd Luke. [address] [place], [address], [place]. tel:[phone] [facility], [address] , [place], [address], [place] tel:[phone] [facility] No Information Apr-2 8-201 5 Southmayd Luke. [address] [place], [address], [place]. tel:[phone] [facility], [address], [address], US tel:[phone] [facility] No Information Apr-2 7-201 5 Guille Luke. [address] [place], [address], [place]. tel:[phone] [facility], [address], [address], US tel:[phone] [facility] No Information Apr-2 5-201 5 Southmayd Luke. [address] [place], [address], [place]. tel:[phone] [facility], [address], [address], [place] tel:[phone] [facility] No Information Apr-2 4-201 5 Southmayd Luke. [address] [place], [address], [place]. tel:[phone] [facility], [address], [address], [place] tel:[phone] [facility] No Information Apr-2 3-201 5 Guille Luke. [address] [place], [address], [place]. tel:[phone] [facility], [address] , [place], [address], [place] tel:[phone] [facility] No Information Apr-2 2-201 5 Sierra Quick. [address] [place], [place], [address], [place]. tel:[phone] OFFICE/OUTPA TIENT VISIT, EST [facility], [address] [place], [address], [place] tel:[phone] [facility] substance abuse (chief complaint) No Information Sep-2 2- 5 Guille Luke. [address] [place], [place], [address], [place]. tel:[phone] [facility], [address] [place], [address], [place] tel:+ [phone] [facility] No Information Sep-2 2- 5 Lucía Zeus. [address] [place], [place], [address], [place]. tel:[phone] [facility], [address] [place] [address], [address], [place] tel:+ [phone] [facility] No Information 1 5- 5 Guilleraul Butler. [address] [place], [place], [address], [place]. tel:[phone] [facility], [address] [place] [address], [address], [place] tel:+ [phone] [facility] No Information Sep-0 8 5 Guille Butler. [address] [place], [place], [address], [place]. tel:[phone] [facility], [address] [place] [address], [address], [place] tel:+ [phone] [facility] Cannabis abuse Apr-0 6 5 Sierra Abedlrahman. [address] [place], [place], [address], [place]. tel:[phone] OFFICE/OUTPA TIENT VISIT, EST [facility], [address] [place], [address], [place] tel:[phone] [facility] Adult Medicine Urinary frequency (chief complaint)STI (chief complaint) Leukorrhea, not specified as infective 5 Karissa Silverman. [address], [place], [place], [address], [place]. tel:[phone] [facility], [address], [address], [place] tel:+ [phone] [facility] No Information Aug- 7 5 Guille Butler. [address] [place], [address], [place]. tel:[phone] [facility], [address], [address], [place] tel:+ [phone] [facility] No Information 5 Darian Haines. [address] [place], [address], [place]. tel:[phone] [facility], [address], [address], [place] tel:+ [phone] [facility] No Information 5 Darian Haines. [address] [place], [address], [place]. tel:[phone] [facility], [address], [address], US tel:+ [phone] [facility] No Information 2 5 Darian Haines. [address] [place], [address], [place]. tel:[phone] [facility], [address], [address], [place] tel:[phone] [facility] No Information 5 Mariahluis enrique De La Torre. [address] [place], [address], [place]. tel:[phone] [facility], [address], [place], [address], [place] tel:+ [phone] [facility] No Information 5 Darian Haines. [address] [place], [address], [place]. tel:[phone] [facility], [address], [place], [address], [place] tel:+ [phone] [facility] No Information Mar-1 0-201 5 Farmer Zaki. [address], [place], [place], [address], [place]. tel:[phone] [facility], [address] , [place], [address], [place] tel:+ [phone] [facility] No Information Mar-0 9-201 5 Sierra Quick. [address] [place], [address], [place]. tel:[phone] [facility], [address] , [place], [address], [place] tel:+ [phone] [facility] No Information Mar-0 9-201 5 Farmer Zaki. [address] [place], [address], [place]. tel:[phone] [facility], [address] , [place], [address], [place] tel:+ [phone] [facility] No Information Mar-0 7-201 5 Farmer Zaki. [address] [place], [address], [place]. tel:[phone] [facility], [address] , [place], [address], [place] tel:+ [phone] [facility] No Information Mar-0 6-201 5 Farmer Zaki. [address], [place], [place], [address], [place]. tel:[phone] [facility], [address], [place], [address], [place] tel:+ [phone] [facility] No Information Mar-0 5-201 5 Farmer Zaki. [address], [place], [place], [address], [place]. tel:[phone] [facility], [address] , [place], [address], US tel:+ [phone] [facility] No Information 0 5 Lucía Schulz. [address] [place], [address], [place]. tel:[phone] [facility], [address] , [place], [address], [place] tel:+ [phone] [facility] No Information Aug-0 5 Darian Haines. [address] [place], [address], [place]. tel:[phone] [facility], [address] , [place], [address], [place] tel:[phone] [facility] Adult Medicine Enlarged uterus Aug-0 5 Jae Zamarripa. [address] [place], [place], [id number], [place]. tel:[phone] [facility], [address], [address], [place] tel:+ [phone] [facility] No Information 0 5 Darian Haines. [address] [place], [place], [address], [place]. tel:[phone] [facility], [address], [address], [place] tel:+ [phone] [facility] No Information 5 Darian Haines. [address] [place], [place], [address], [place]. tel:[phone] [facility], [address], [address], [place] tel:+ [phone] [facility] No Information 5 Lucía Schulz. [address] [place], [address], [place]. tel:[phone] [facility], [address] , [place], [address], [place] tel:+ [phone] [facility] No Information Feb-2 5 Farmer Zaki. [address], [place], [place], [address], [place]. tel:[phone] [facility], [address], [place], [address], [place] tel:+ [phone] [facility] No Information b-2 5 Farmer Zaki. [address], [place], [place], [address], [place]. tel:[phone] [facility], [address], [place], [address], [place] tel:+ [phone] [facility] No Information b-2 5 Caity De La Torre. [address], [place], [place], [address], [place]. tel:[phone] [facility], [address] , [place], [address], [place] tel:+ [phone] [facility] No Information b-2 5 Farmer Zaki. [address], [place], [place], [address], [place]. tel:[phone] [facility], [address] , [place], [address], [place] tel:+ [phone] [facility] No Information b-2 5 Farmer Zaki. [address], [place], [place], [address], [place]. tel:[phone] [facility], [address], [place], [address], [place] tel:+ [phone] [facility] No Information b-2 5 Farmer Zaki. [address], [place], [place], [address], [place]. tel:[phone] [facility], [address], [place], [address], [place] tel:+ [phone] [facility] No Information 5 Darian Haines. [address], [place], [place], [address], [place]. tel:[phone] [facility], [address] , [place], [address], US tel:[phone] [facility] No Information 0 5 Darian Haines. [address], [place], [place], [address], [place]. tel:[phone] [facility], [address] , [place], [address], [place] tel:[phone] [facility] No Information 5 Mariahluis enrique De La Torre. [address], [place], [place], [address], [place]. tel:[phone] [facility], [address] , [place], [address], [place] tel:[phone] [facility] No Information 5 Darian Haines. [address] , [place], [place], [address], [place]. tel:[phone] [facility], [address] , [place], [address], [place] tel:[phone] [facility] No Information 5 Lucía Schulz. [address] [place], [address], [place]. tel:[phone] [facility], [address] , [place], [address], [place] tel:[phone] [facility] No Information 5 Lucía Schulz. [address] [place], [address], [place]. tel:[phone] [facility], [address] , [place], [address], [place] tel:[phone] [facility] No Information 5 Darian Haines. [address], [place], [place], [address], [place]. tel:[phone] [facility], [address], [place], [address], [place] tel:+ [phone] [facility] No Information 5 Darian Haines. [address], [place], [place], [address], [place]. tel:[phone] [facility], [address], [place], [address], [place] tel:+ [phone] [facility] No Information 5 Darian Haines. [address], [place], [place], [address], [place]. tel:[phone] [facility], [address], [place], [address], [place] tel:+ [phone] [facility] No Information 5 Darian Haines. [address], [place], [place], [address], [place]. tel:[phone] [facility], [address], [place], [address], [place] tel:+ [phone] [facility] No Information 5 Darian Haines. [address], [place], [place], [address], [place]. tel:[phone] [facility], [address], [place], [address], [place] tel:[phone] [facility] No Information 5 Caity De La Torre. [address], [place], [place], [address], [place]. tel:[phone] [facility], [address], [place], [address], [place] tel:[phone] [facility] No Information 5 Darian Haines. [address], [place], [place], [id number], [place]. tel:[phone] OFFICE/OUTPA TIENT VISIT, EST [facility], [address], [address], [place] tel:[phone] [facility] substance abuse (chief complaint) No Information Feb-1 0-201 5 Guille Butler. [address] [place], [id number], [place]. tel:[phone] [facility], [address] [place], [place] [address] [place], [address], [place] tel:[phone] [facility] No Information Feb-1 0-201 5 Darian Haines. [address] [place], [place], [id number], [place]. tel:[phone] [facility], [address] [place], [place] [address] [place], [address], [place] tel:[phone] [facility] No Information Feb-0 9-201 5 Darian Haines. [address] [place], [place], [id number], [place]. tel:[phone] [facility], [address], [address], [place] tel:[phone] [facility] No Information Feb-0 7-201 5 Darian Haines. [address] [place], [place], [id number], [place]. tel:[phone] [facility], [address], [address], [place] tel:[phone] [facility] No Information Feb-0 5-201 5 Darian Haines. [address] [place], [place], [id number], [place]. tel:[phone] [facility], [address], [address], [place] tel:[phone] [facility] No Information Feb-0 4-201 5 Belasco Britt. [address], [place], [place], [id number], [place]. tel:[phone] [facility], [address] , [place], [address], [place] tel:+ [phone] [facility] No Information 0 5 Darian Zaki. [address] [place], [id number], [place]. tel:[phone] [facility], [address] , [place], [address], [place] tel:+ [phone] [facility] No Information 5 Darian Zaki. [address], [place], [place], [id number], [place]. tel:[phone] [facility], [address] , [place], [address], [place] tel:+ [phone] [facility] No Information 5 Darian Zaki. [address] [place], [id number], [place]. tel:[phone] [facility], [address], [address], [place] tel:+ [phone] [facility] No Information 5 Darian Zaki. [address] [place], [place], [id number], [place]. tel:[phone] [facility], [address] , [place], [address], [place] tel:[phone] [facility] No Information 5 Farmer Zaki. [address] [place], [address], [place]. tel:[phone] [facility], [address] , [place], [address], [place] tel:+ [phone] [facility] No Information 5 Farmer Zaki. [address] [place], [id number], [place]. tel:[phone] [facility], [address], [place], [address], [place] tel:+ [phone] [facility] No Information 5 Guillermo Sandoval. [address], [place], [place], [id number], [place]. tel:[phone] [facility], [address], [place], [address], [place] tel:+ [phone] [facility] No Information 5 Farmer Zaki. [address], [place], [place], [id number], [place]. tel:[phone] [facility], [address], [place], [address], [place] tel:+ [phone] [facility] No Information 5 Darian Haines. [address], [place], [place], [id number], [place]. tel:[phone] [facility], [address], [place], [address], [place] tel:+ [phone] [facility] No Information 5 Darian Haines. [address], [place], [place], [id number], [place]. tel:[phone] [facility], [address], [place], [address], [place] tel:+ [phone] [facility] No Information 5 Darian Haines. [address], [place], [place], [id number], [place]. tel:[phone] [facility], [address], [place], [address], [place] tel:[phone] [facility] No Information 5 Darian Haines. [address], [place], [place], [id number], [place]. tel:[phone] [facility], [address], [place], [address], [place] tel:+ [phone] [facility] No Information 5 Darian Haines. [address], [place], [place], [id number], [place]. tel:[phone] [facility], [address], [place], [address], [place] tel:+ [phone] [facility] No Information 5 Darian Haines. [address], [place], [place], [id number], [place]. tel:[phone] [facility], [address], [place], [address], [place] tel:+ [phone] [facility] No Information 5 Lucía Zeus. [address], [id number], [place]. tel:[phone] [facility], [address] , [place], [address], [place] tel:+ [phone] [facility] No Information 5 Darian Haines. [address] [place], [address], [place]. tel:[phone] [facility], [address] , [place], [address], [place] tel:+ [phone] [facility] No Information 5 Darian Haines. [address] [place], [address], [place]. tel:[phone] [facility], [address], [place], [address], [place] tel:+ [phone] [facility] No Information 5 Darian Haines. [address], [place], [place], [id number], [place]. tel:[phone] [facility], [address], [place], [address], [place] tel:+ [phone] [facility] No Information 5 Darian Haines. [address], [place], [place], [id number], [place]. tel:[phone] [facility], [address], [place], [address], [place] tel:+ [phone] [facility] No Information - 5 Darian Haines. [address], [place], [place], [id number], [place]. tel:[phone] [facility], [address], [place], [address], [place] tel:+ [phone] [facility] No Information 5 Darian Haines. [address], [place], [place], [id number], [place]. tel:[phone] [facility], [address] , [place], [address], [place] tel:+ [phone] [facility] No Information 3- 5 Darian Haines. [address], [place], [place], [id number], [place]. tel:[phone] [facility], [address] , [place], [address], [place] tel:+ [phone] [facility] No Information 2 5 Darian Haines. [address], [place], [place], [id number], [place]. tel:[phone] [facility], [address], [place], [address], [place] tel:[phone] [facility] No Information 0- 5 Darian Haines. [address], [place], [place], [address], [place]. tel:[phone] [facility], [address], [place], [address], [place] tel:[phone] [facility] No Information 9- 5 Lucía Schulz. [address], [place], [place], [id number], [place]. tel:[phone] [facility], [address], [address], [place] tel:[phone] [facility] No Information 9-201 5 Sierra Quick. [address] [place], [place], [address], [place]. tel:[phone] [facility], [address], [address], [place] tel:+ [phone] [facility] No Information 9 5 Darian Haines. [address] [place], [place], [id number], [place]. tel:[phone] [facility], [address], [address], [place] tel:+ [phone] [facility] No Information 8 5 Darian Haines. [address] [place], [place], [address], [place]. tel:[phone] [facility], [address], [address], [place] tel:+ [phone] [facility] No Information 7 5 Darian Haines. [address] [place], [place], [address], [place]. tel:[phone] [facility], [address], [address], [place] tel:[phone] [facility] No Information 6201 5 Darian Haines. [address] [place], [place], [address], [place]. tel:[phone] [facility], [address], [address], [place] tel:[phone] [facility] No Information 5-201 5 Darian Haines. [address] [place], [address], [place]. tel:+ [phone] [facility], [address], [place], [address], [place] tel:+ [phone] [facility] No Information 5 Darian Zaki. [address], [place], [place], [address], [place]. tel:+ [phone] [facility], [address], [place], [address], [place] tel:+ [phone] [facility] No Information 5 Darian Zaki. [address], [place], [place], [id number], [place]. tel:+ [phone] [facility], [address], [place], [address], [place] tel:+ [phone] [facility] No Information 4 Darian Zaki. [address] [place], [address], [place]. tel:+ [phone] [facility], [address], [place], [address], [place] tel:+ [phone] [facility] No Information 4 Darian Zaki. [address], [place], [place], [id number], [place]. tel:+ [phone] [facility], [address], [place], [address], [place] tel:+ [phone] [facility] No Information 4 Darian Zaki. [address], [place], [place], [id number], [place]. tel:+ [phone] [facility], [address], [place], [address], [place] tel:+ [phone] [facility] No Information 4 Darian Zaki. [address], [place], [place], [address], [place]. tel:+ [phone] [facility], [address], [place], [address], [place] tel:+ [phone] [facility] No Information Dec-2 6- 4 Darian Haines. [address], [place], [place], [address], [place]. tel:+ [phone] [facility], [address] , [place], [address], [place] tel:+ [phone] [facility] No Information Dec-2 4-201 4 Darian Haines. [address], [place], [place], [address], [place]. tel:+ [phone] [facility], [address] , [place], [address], [place] tel:+ [phone] [facility] No Information Dec-2 3- 4 Darian Haines. [address] [place], [place], [address], [place]. tel:+ [phone] [facility], [address] , [place], [address], [place] tel:+ [phone] [facility] No Information Dec-2 2- 4 Darian Haines. [address] [place], [place], [address], [place]. tel:+ [phone] [facility], [address] , [place], [address], [place] tel:+ [phone] [facility] No Information Dec-2 0- 4 Darian Haines. [address] [place], [address], [place]. tel:+ [phone] [facility], [address] , [place], [address], [place] tel:+ [phone] [facility] No Information Dec-1 9 4 Sierra Quick. [address] [place], [place], [address], [place]. tel:[phone] [facility], [address] , [place], [address], [place] tel:+ [phone] [facility] No Information 4 Darian Haines. [address], [place], [place], [address], [place]. tel:[phone] [facility], [address] , [place], [address], [place] tel:+ [phone] [facility] No Information 4 Lucía Zeus. [address] [place], [address], [place]. tel:[phone] [facility], [address] , [place], [address], [place] tel:+ [phone] [facility] No Information 4 Darian Haines. [address] , [place], [place], [address], [place]. tel:[phone] [facility], [address], [address], [place] tel:+ [phone] [facility] No Information 4 Darian Haines. [address], [place], [place], [address], [place]. tel:[phone] [facility], [address] , [place], [address], [place] tel:+ [phone] [facility] No Information 4 Darian Haines. [address] , [place], [place], [address], [place]. tel:[phone] [facility], [address], [address], [place] tel:+ [phone] [facility] No Information 4 Darian Haines. [address], [place], [place], [address], [place]. tel:[phone] [facility], [address] , [place], [address], [place] tel:+ [phone] [facility] No Information 4 Darian Haines. [address], [place], [place], [address], [place]. tel:+ [phone] [facility], [address] , [place], [address], [place] tel:+ [phone] [facility] No Information Dec-1 2-201 4 Darian Zaki. [address], [place], [place], [id number], [place]. tel:+ [phone] [facility], [address] , [place], [address], [place] tel:+ [phone] [facility] No Information Dec-1 0-201 4 Darian Haines. [address], [place], [place], [address], [place]. tel:[phone] [facility], [address] , [place], [address], [place] tel:+ [phone] [facility] No Information Dec-0 9-201 4 Darian Haines. [address], [place], [place], [address], [place]. tel:+ [phone] [facility], [address] , [place], [address], [place] tel:+ [phone] [facility] No Information Dec-0 8-201 4 Darian Haines. [address] [place], [place], [address], [place]. tel:+ [phone] [facility], [address] , [place], [address], [place] tel:+ [phone] [facility] No Information Dec-0 6-201 4 Darian Haines. [address], [place], [place], [address], [place]. tel:[phone] [facility], [address] , [place], [address], [place] tel:+ [phone] [facility] No Information Dec-0 5-201 4 Darian Haines. [address], [place], [place], [address], [place]. tel:+ [phone] [facility], [address], [place], [address], [place] tel:+ [phone] [facility] No Information Dec-0 4 4 Sierra Quick. [address] , [place], [place], [address], [place]. tel:[phone] [facility], [address] , [place], [address], [place] tel:+ [phone] [facility] No Information Dec-0 - 4 Darian Haines. [address] , [place], [place], [id number], [place]. tel:+ [phone] [facility], [address] , [place], [address], [place] tel:+ [phone] [facility] No Information Dec-0 2 4 Darian Haines. [address] [place], [place], [address], [place]. tel:+ [phone] [facility], [address] , [place], [address], [place] tel:+ [phone] [facility] No Information Dec-0 - 4 Lucía Schulz. [address] [place], [id number], [place]. tel:[phone] [facility], [address] , [place], [address], [place] tel:+ [phone] [facility] No Information Dec-0 4 Darian Haines. [address] [place], [place], [address], [place]. tel:+ [phone] [facility], [address], [place], [address], [place] tel:+ [phone] [facility] No Information Apr- 4 Darian Haines. [address] [place], [address], [place]. tel:+ [phone] [facility], [address], [place], [address], [place] tel:[phone] [facility] No Information 4 Darian Haines. [address] , [place], [place], [address], [place]. tel:[phone] [facility], [address], [address], [place] tel:+ [phone] [facility] No Information 4 Darian Haines. [address] [place], [place], [address], [place]. tel:[phone] OFFICE/OUTPA TIENT VISIT, EST [facility], [address], [address], [place] tel:[phone] [facility] substance abuse (chief complaint) No Information 4 Alvino Miller. [address] [place], [place], [address], [place]. tel:[phone] [facility], [address], [address], [place] tel:+ [phone] [facility] No Information 4 Darian Haines. [address] [place], [place], [address], [place]. tel:[phone] [facility], [address], [address], [place] tel:+ [phone] [facility] No Information 4 Darian Haines. [address] [place], [address], [place]. tel:[phone] [facility], [address], [address], [place] tel:[phone] [facility] No Information 4 Sierra Quick. [address] [place], [address], [place]. tel:[phone] [facility], [address], [place], [address], [place] tel:+ [phone] [facility] No Information 4 Darian Zaki. [address], [place], [place], [address], [place]. tel:[phone] [facility], [address], [place], [address], [place] tel:+ [phone] [facility] No Information 0 4 Darian Zaki. [address], [place], [place], [address], [place]. tel:[phone] [facility], [address], [place], [address], [place] tel:+ [phone] [facility] No Information 4 Darian Zaki. [address], [place], [place], [address], [place]. tel:[phone] [facility], [address] , [place], [address], [place] tel:+ [phone] [facility] No Information 4 Darian Zaki. [address], [place], [place], [address], [place]. tel:[phone] [facility], [address], [place], [address], [place] tel:+ [phone] [facility] No Information 4 Darian Zaki. [address], [place], [place], [address], [place]. tel:[phone] [facility], [address], [place], [address], [place] tel:[phone] [facility] No Information 4 Darian Zaki. [address], [place], [place], [address], [place]. tel:[phone] [facility], [address], [place], [address], [place] tel:[phone] [facility] No Information Nov-1 3-201 4 Farmer Zaki. [address], [place], [place], [address], [place]. tel:[phone] [facility], [address] , [place], [address], [place] tel:+ [phone] [facility] No Information Nov-1 2-201 4 Farmer Zaki. [address], [place], [place], [address], [place]. tel:[phone] [facility], [address] , [place], [address], [place] tel:+ [phone] [facility] No Information Nov-1 0-201 4 Darian Zaki. [address] , [place], [place], [address], [place]. tel:[phone] [facility], [address] , [place], [address], [place] tel:+ [phone] [facility] No Information Nov-0 8-201 4 Darian Zaki. [address], [place], [place], [address], [place]. tel:[phone] [facility], [address] , [place], [address], [place] tel:+ [phone] [facility] No Information Nov-0 7-201 4 Darian Zaki. [address] [place], [address], [place]. tel:[phone] [facility], [address] , [place], [address], [place] tel:+ [phone] [facility] No Information Nov-0 6-201 4 Darian Zaki. [address], [place], [place], [address], [place]. tel:[phone] [facility], [address] , [place], [address], [place] tel:+ [phone] [facility] No Information Nov-0 5-201 4 Farmer Zaki. [address] [place], [address], [place]. tel:[phone] [facility], [address], [address], [place] tel:[phone] [facility] No Information Apr-0 4 Sierra Quick. [address] [place], [id number], [place]. tel:[phone] [facility], [address] , [place], [address], [place] tel:+ [phone] [facility] No Information 0 4 Darian Hianes. [address] [place], [address], [place]. tel:[phone] [facility], [address], [address], [place] tel:+ [phone] [facility] No Information 0 4 Darian Haines. [address] [place], [place], [address], [place]. tel:[phone] [facility], [address], [address], [place] tel:+ [phone] [facility] No Information 0 4 Darian Haines. [address] [place], [place], [address], [place]. tel:[phone] [facility], [address], [address], [place] tel:[phone] [facility] No Information 4 Darian Haines. [address] [place], [place], [address], [place]. tel:[phone] [facility], [address], [address], [place] tel:[phone] [facility] No Information 4 Darian Haines. [address] [place], [address], [place]. tel:+ [phone] [facility], [address], [place], [address], [place] tel:+ [phone] [facility] No Information Mar- 8 4 Farmer Zaki. [address], [place], [place], [address], [place]. tel:+ [phone] [facility], [address], [place], [address], [place] tel:+ [phone] [facility] No Information 7 4 Darian Zaki. [address], [place], [place], [address], [place]. tel:[phone] [facility], [address], [place], [address], [place] tel:+ [phone] [facility] No Information 4 Darian Haines. [address], [place], [place], [address], [place]. tel:+ [phone] [facility], [address] , [place], [address], [place] tel:+ [phone] [facility] No Information - 4 Darian Haines. [address], [place], [place], [address], [place]. tel:+ [phone] [facility], [address], [place], [address], [place] tel:+ [phone] [facility] No Information 2 3- 4 Darian Haines. [address], [place], [place], [address], [place]. tel:+ [phone] [facility], [address], [place], [address], [place] tel:+ [phone] [facility] No Information 2 2- 4 Sierra Quick. [address], [place], [place], [address], [place]. tel:[phone] [facility], [address], [place], [address], [place] tel:+ [phone] [facility] No Information Mar- 2- 4 Darian Zaki. [address], [place], [place], [id number], [place]. tel:[phone] [facility], [address], [place], [address], [place] tel:+ [phone] [facility] No Information 1 4 Darian Zaki. [address], [place], [place], [address], [place]. tel:+ [phone] [facility], [address], [place], [address], [place] tel:+ [phone] [facility] No Information 0 4 Darian Zaki. [address] [place], [address], [place]. tel:+ [phone] [facility], [address] , [place], [address], [place] tel:+ [phone] [facility] No Information 4 Darian Haines. [address] [place], [address], [place]. tel:+ [phone] [facility], [address], [address], [place] tel:+ [phone] [facility] No Information 4 Darian Zaki. [address] [place], [address], [place]. tel:+ [phone] [facility], [address], [place], [address], [place] tel:+ [phone] [facility] No Information 4 Darian Zaki. [address], [place], [place], [address], [place]. tel:+ [phone] [facility], [address], [place], [address], [place] tel:+ [phone] [facility] No Information 5- 4 Darian Zaki. [address], [place], [place], [address], [place]. tel:[phone] [facility], [address] , [place], [address], [place] tel:+ [phone] [facility] No Information 4-201 4 Darian Haines. [address], [place], [place], [address], [place]. tel:[phone] [facility], [address] , [place], [address], [place] tel:+ [phone] [facility] No Information 3- 4 Darian Haines. [address], [place], [place], [address], [place]. tel:[phone] [facility], [address], [address], [place] tel:+ [phone] [facility] No Information 1- 4 Darian Haines. [address], [place], [place], [id number], [place]. tel:[phone] [facility], [address] , [place], [address], [place] tel:+ [phone] [facility] No Information 0- 4 Darian Haines. [address], [place], [place], [address], [place]. tel:[phone] [facility], [address] , [place], [address], [place] tel:+ [phone] [facility] No Information 0 9 4 Darian Haines. [address], [place], [place], [address], [place]. tel:[phone] [facility], [address] , [place], [address], [place] tel:+ [phone] [facility] Anxiety and depressionDef erred condition on axis II Mar-0 8-201 4 Sierra Quick. [address] , [place], [place], [id number], [place]. tel:[phone] [facility], [address] , [place], [address], [place] tel:[phone] [facility] No Information Oct-0 8-201 4 Darian Haines. [address] [place], [address], [place]. tel:[phone] [facility], [address], [address], [place] tel:+ [phone] [facility] No Information Oct-0 7-201 4 Darian Haines. [address] [place], [place], [address], [place]. tel:[phone] [facility], [address], [address], [place] tel:+ [phone] [facility] No Information Oct-0 6-201 4 Darian Haines. [address] [place], [place], [address], [place]. tel:[phone] [facility], [address], [address], [place] tel:+ [phone] [facility] No Information Oct-0 4-201 4 Darian Haines. [address] [place], [id number], [place]. tel:[phone] [facility], [address], [address], [place] tel:[phone] [facility] No Information Oct-0 3-201 4 Darian Haines. [address] [place], [place], [address], [place]. tel:[phone] [facility], [address], [address], [place] tel:[phone] [facility] No Information Oct-0 1-201 4 Darian Haines. [address] [place], [address], [place]. tel:[phone] [facility], [address] [place] [address], [address], [place] tel:[phone] [facility] No Information Sep-3 0- 4 Sierra Quick. [address], [address], [place]. tel:[phone] [facility], [address] [place], [place] [address] [place], [address], [place] tel:+ [phone] [facility] No Information Sep-3 0 4 Darian Haines. [address] [place], [address], [place]. tel:[phone] OFFICE/OUTPA TIENT VISIT, EST [facility], [address] [place] [address], [address], [place] tel:[phone] [facility] Adult Medicine 3 months f/u depresion/ anxiety and urine incontinenc (chief complaint) AnorexiaStres s incontinence Sep-2 4 Yuniel Mullen. [address] [place], [place], [address], [place]. tel:[phone] [facility], [address] [place], [place] [address], [address], [place] tel:+ [phone] [facility] No Information Sep-2 4 Darian Haines. [address] [place], [id number], [place]. tel:[phone] [facility], [address] [place], [place] [address] [place], [address], [place] tel:[phone] [facility] No Information Sep-2 4 Darian Haines. [address] [place], [place], [id number], [place]. tel:[phone] [facility], [address], [address], [place] tel:[phone] [facility] No Information Sep-2 6-201 4 Darian Haines. [address], [place], [place], [id number], [place]. tel:[phone] [facility], [address] , [place], [address], [place] tel:[phone] [facility] No Information Sep-2 5-201 4 Darian Haines. [address], [place], [place], [id number], [place]. tel:[phone] [facility], [address] , [place], [address], [place] tel:[phone] [facility] No Information Sep-2 4-201 4 Darian Haines. [address] , [place], [place], [id number], [place]. tel:[phone] [facility], [address] , [place], [address], [place] tel:[phone] [facility] No Information Sep-2 3-201 4 Darian Haines. [address], [place], [place], [id number], [place]. tel:[phone] [facility], [address] , [place], [address], [place] tel:[phone] [facility] No Information Sep-2 2-201 4 Darian Haines. [address] [place], [place], [id number], [place]. tel:[phone] [facility], [address] , [place], [address], [place] tel:[phone] [facility] No Information Sep-2 0-201 4 Darian Haines. [address] [place], [place], [id number], [place]. tel:[phone] [facility], [address] , [place], [address], [place] tel:[phone] [facility] No Information Sep-1 9-201 4 Lucía Schulz. [address], [id number], [place]. tel:[phone] [facility], [address], [place], [address], [place] tel:+ [phone] [facility] No Information Sep-1 4 Darian Haines. [address], [place], [place], [id number], [place]. tel:[phone] [facility], [address], [place], [address], [place] tel:+ [phone] [facility] No Information Sep-1 4 Darian Haines. [address], [place], [place], [address], [place]. tel:[phone] [facility], [address], [place], [address], [place] tel:+ [phone] [facility] No Information Sep-1 4 Darian Haines. [address], [place], [place], [id number], [place]. tel:[phone] [facility], [address], [place], [address], [place] tel:+ [phone] [facility] No Information Sep-1 4 Darian Haines. [address], [place], [place], [id number], [place]. tel:[phone] [facility], [address], [place], [address], [place] tel:+ [phone] [facility] No Information Sep-1 4 Darian Haines. [address], [place], [place], [id number], [place]. tel:[phone] [facility], [address], [place], [address], [place] tel:+ [phone] [facility] No Information Sep-1 4 Darian Haines. [address], [place], [place], [id number], [place]. tel:[phone] [facility], [address], [place], [address], [place] tel:+ [phone] [facility] No Information Sep-1 4 Darian Haines. [address] [place], [id number], [place]. tel:[phone] [facility], [address], [address], [place] tel:+ [phone] [facility] No Information Sep-0 9 4 Sierra Quick. [address] [place], [id number], [place]. tel:[phone] [facility], [address], [address], [place] tel:+ [phone] [facility] No Information Sep-0 4 Darian Haines. [address] [place], [id number], [place]. tel:[phone] OFFICE/OUTPA TIENT VISIT, EST [facility], [address], [address], [place] tel:+ [phone] [facility] substance abuse (chief complaint) No Information Sep-0 8 4 Alvino Miller. [address] [place], [id number], [place]. tel:[phone] [facility], [address], [address], [place] tel:+ [phone] [facility] No Information Sep-0 8 4 Darian Haines. [address] [place], [place], [id number], [place]. tel:[phone] [facility], [address], [address], [place] tel:+ [phone] [facility] No Information Sep-0 6 4 Darian Haines. [address] [place], [place], [address], [place]. tel:[phone] [facility], [address], [place], [address], [place] tel:+ [phone] [facility] No Information Sep-0 4 Darian Zaki. [address], [place], [place], [id number], [place]. tel:[phone] [facility], [address], [place], [address], [place] tel:[phone] [facility] No Information Sep-0 4- 4 Farmer Zaki. [address], [place], [place], [id number], [place]. tel:+ [phone] [facility], [address] , [place], [address], [place] tel:+ [phone] [facility] No Information Sep-0 2- 4 Darian Zaki. [address] , [place], [place], [id number], [place]. tel:+ [phone] [facility], [address] , [place], [address], [place] tel:+ [phone] [facility] No Information Aug-3 0 4 Darian Zaki. [address], [place], [place], [address], [place]. tel:[phone] [facility], [address] , [place], [address], [place] tel:+ [phone] [facility] No Information Jan-2 4 Darian Zaki. [address], [place], [place], [address], [place]. tel:[phone] [facility], [address] , [place], [address], [place] tel:[phone] [facility] No Information Aug-2 4 Darian Zaki. [address], [place], [place], [address], [place]. tel:[phone] [facility], [address] , [place], [address], [place] tel:[phone] [facility] No Information Jan- 4 Farmer Zaki. [address], [place], [place], [address], [place]. tel:[phone] [facility], [address] , [place], [address], [place] tel:+ [phone] [facility] No Information Jan- 4 Darian Haines. [address], [place], [place], [address], [place]. tel:[phone] [facility], [address] , [place], [address], [place] tel:+ [phone] [facility] No Information 4 Farmer Zaki. [address] [place], [address], [place]. tel:[phone] [facility], [address] , [place], [address], [place] tel:+ [phone] [facility] No Information 4 Darian Haines. [address] [place], [address], [place]. tel:[phone] [facility], [address], [address], [place] tel:+ [phone] [facility] No Information 4 Sierra Quick. [address] [place], [place], [address], [place]. tel:[phone] [facility], [address] , [place], [address], [place] tel:+ [phone] [facility] No Information 4 Darian Haines. [address] [place], [address], [place]. tel:[phone] [facility], [address] , [place], [address], [place] tel:+ [phone] [facility] No Information 4 Darian Haines. [address], [place], [place], [address], [place]. tel:[phone] [facility], [address], [place], [address], [place] tel:[phone] [facility] No Information 4 Darian Zaki. [address], [place], [place], [address], [place]. tel:+ [phone] [facility], [address], [place], [address], [place] tel:[phone] [facility] No Information 4 Darian Haines. [address], [place], [place], [address], [place]. tel:[phone] [facility], [address] , [place], [address], [place] tel:+ [phone] [facility] No Information 4 Darian Haines. [address], [place], [place], [address], [place]. tel:[phone] [facility], [address] , [place], [address], [place] tel:[phone] [facility] No Information 4 Darian Haines. [address], [place], [place], [address], [place]. tel:+ [phone] [facility], [address], [place], [address], [place] tel:[phone] [facility] No Information 4 Darian Haines. [address], [place], [place], [address], [place]. tel:[phone] [facility], [address], [place], [address], [place] tel:[phone] [facility] No Information 0 4 Darian Haines. [address], [place], [place], [id number], [place]. tel:[phone] [facility], [address] , [place], [address], [place] tel:+ [phone] [facility] No Information Aug-0 8 4 Farmer Zaki. [address] [place], [place], [address], [place]. tel:[phone] [facility], [address] , [place], [address], [place] tel:+ [phone] [facility] No Information Aug-0 7 4 Darian Haines. [address] [place], [address], [place]. tel:[phone] [facility], [address] , [place], [address], [place] tel:+ [phone] [facility] Sedative, hypnotic or anxiolytic abuse, unspecifiedPo st traumatic stress disorderBorde rline personality disorder Aug-0 5 4 Sierra Quick. [address] , [place], [place], [id number], [place]. tel:[phone] [facility], [address], [address], [place] tel:+ [phone] [facility] No Information Aug-0 5 4 Darian Haines. [address] [place], [place], [address], [place]. tel:[phone] [facility], [address] , [place], [address], [place] tel:+ [phone] [facility] No Information Aug-0 4-201 4 Darian Haines. [address] [place], [place], [address], [place]. tel:[phone] [facility], [address] , [place], [address], [place] tel:+ [phone] [facility] No Information Aug-0 2 4 Darian Haines. [address] [place], [address], [place]. tel:+ [phone] [facility], [address], [place], [address], [place] tel:+ [phone] [facility] No Information 4 Farmer Zaki. [address], [place], [place], [address], [place]. tel:+ [phone] [facility], [address], [place], [address], [place] tel:+ [phone] [facility] No Information 4 Farmer Zaki. [address], [place], [place], [address], [place]. tel:+ [phone] [facility], [address], [place], [address], [place] tel:+ [phone] [facility] No Information 4 Farmer Zaki. [address], [place], [place], [address], [place]. tel:+ [phone] [facility], [address], [place], [address], [place] tel:+ [phone] [facility] No Information 4 Farmer Zaki. [address], [place], [place], [address], [place]. tel:+ [phone] [facility], [address], [place], [address], [place] tel:+ [phone] [facility] No Information 4 Farmer Zaki. [address], [place], [place], [address], [place]. tel:[phone] [facility], [address], [place], [address], [place] tel:+ [phone] [facility] No Information 4 Jeovany Rodríguez. [address], [place], [place], [address], [place]. [facility], [address], [place], [address], [place] tel:+ [phone] [facility] No Information 4 Darian Haines. [address], [place], [place], [address], [place]. tel:[phone] [facility], [address], [place], [address], [place] tel:+ [phone] [facility] No Information 4 Darian Haines. [address], [place], [place], [address], [place]. tel:[phone] [facility], [address], [place], [address], [place] tel:+ [phone] [facility] No Information 4 Sierra Quick. [address] , [place], [place], [address], [place]. tel:[phone] [facility], [address], [address], [place] tel:+ [phone] [facility] No Information 4 Darian Haines. [address], [place], [place], [address], [place]. tel:[phone] [facility], [address] , [place], [address], [place] tel:+ [phone] [facility] No Information 4 Darian Haines. [address], [place], [place], [address], [place]. tel:[phone] [facility], [address] , [place], [address], [place] tel:+ [phone] [facility] No Information 4 Darian Haines. [address], [place], [place], [address], [place]. tel:[phone] [facility], [address], [place], [address], [place] tel:+ [phone] [facility] No Information 4 Darian Haines. [address], [place], [place], [address], [place]. tel:[phone] [facility], [address] , [place], [address], US tel:+ [phone] [facility] No Information 4 Darian Haines. [address] [place], [place], [address], [place]. tel:+ [phone] [facility], [address], [address], [place] tel:+ [phone] [facility] No Information 4 Darian Haines. [address] [place], [place], [address], [place]. tel:[phone] [facility], [address], [address], [place] tel:+ [phone] [facility] No Information 4 Darian Haines. [address] [place], [place], [address], [place]. tel:[phone] [facility], [address], [address], [place] tel:+ [phone] [facility] No Information 4 Jeovany Rodríguez. [address], [address], [place]. OFFICE/OUTPA TIENT VISIT, EST [facility], [address], [address], [place] tel:+ [phone] [facility] No Information 4 Guille Butler. [address] [place], [address], [place]. tel:[phone] [facility], [address], [address], [place] tel:+ [phone] [facility] No Information 4 Darian Haines. [address], [place], [place], [address], [place]. tel:+ [phone] [facility], [address] , [place], [address], [place] tel:+ [phone] [facility] No Information Dec-0 8-201 4 Farmer Zaki. [address], [place], [place], [address], [place]. tel:+ [phone] [facility], [address] , [place], [address], [place] tel:+ [phone] [facility] No Information 0 7-201 4 Farmer Zaki. [address], [place], [place], [address], [place]. tel:+ [phone] [facility], [address] , [place], [address], [place] tel:+ [phone] [facility] No Information 0 5-201 4 Farmer Zaki. [address] [place], [address], [place]. tel:+ [phone] [facility], [address] , [place], [address], [place] tel:+ [phone] [facility] Opioid dependence Rene-0 2-201 4 Jeovany Anne. [address] [place], [place], [address], [place]. [facility], [address], [address], [place] tel:+ [phone] [facility] No Information Dec-0 2-201 4 Darian Haines. [address], [place], [place], [address], [place]. tel:[phone] [facility], [address] , [place], [address], [place] tel:+ [phone] [facility] No Information 0 1-201 4 Darian Haines. [address] [place], [place], [address], [place]. tel:+ [phone] PSY DX INTERVIEW [facility], [address] , [place], [address], [place] tel:[phone] H[facility]ing No Information Gio-3 0-201 4 Baldemar Edwards. [address] [place], [place], [address], [place]. tel:[phone] [facility], [address] , [place], [address], [place] tel:+ [phone] [facility] No Information Gio-3 0-201 4 Sierra Quick. [address] [place], [address], [place]. tel:[phone] [facility], [address], [address], [place] tel:+ [phone] [facility] No Information Gio-3 0-201 4 Darian Haines. [address] [place], [address], [place]. tel:[phone] [facility], [address], [address], [place] tel:+ [phone] [facility] No Information Gio-2 8-201 4 Darian Haines. [address] [place], [place], [address], [place]. tel:[phone] [facility], [address], [address], [place] tel:+ [phone] [facility] No Information Gio-2 6-201 4 Darian Haines. [address] [place], [place], [address], [place]. tel:[phone] [facility], [address], [address], [place] tel:[phone] [facility] No Information Gio-2 5-201 4 Darian Haines. [address] [place], [place], [address], [place]. tel:[phone] [facility], [address], [address], [place] tel:[phone] [facility] No Information Gio-2 3-201 4 Farmer Zaki. [address], [place], [place], [address], [place]. tel:[phone] [facility], [address] , [place], [address], [place] tel:+ [phone] [facility] No Information Gio-2 1-201 4 Farmer Zaki. [address], [place], [place], [address], [place]. tel:+ [phone] [facility], [address] , [place], [address], [place] tel:+ [phone] [facility] No Information Gio-2 0-201 4 Farmer Zaki. [address] , [place], [place], [address], [place]. tel:[phone] [facility], [address], [address], [place] tel:+ [phone] [facility] No Information Gio-1 9- 4 Farmer Zaki. [address], [place], [place], [address], [place]. tel:[phone] [facility], [address] , [place], [address], [place] tel:+ [phone] [facility] No Information Nov-1 8- 4 Farmer Zaki. [address] [place], [place], [address], [place]. tel:+ [phone] [facility], [address] , [place], [address], [place] tel:+ [phone] [facility] No Information Nov-1 6- 4 Farmer Zaki. [address], [place], [place], [address], [place]. tel:[phone] [facility], [address] , [place], [address], [place] tel:+ [phone] [facility] No Information Gio-1 4-201 4 Farmer Zaki. [address], [place], [place], [address], [place]. tel:[phone] [facility], [address] , [place], [address], [place] tel:+ [phone] [facility] No Information Gio- 3- 4 Neha Almonte. [address] [place], [place], [address], [place]. tel:[phone] [facility], [address] , [place], [address], [place] tel:+ [phone] [facility] No Information Gio- 3- 4 Sierra Quick. [address] [place], [place], [address], [place]. tel:[phone] [facility], [address] , [place], [address], [place] tel:+ [phone] [facility] No Information Gio-1 3- 4 Darian Haines. [address] [place], [place], [address], [place]. tel:[phone] [facility], [address] , [place], [address], [place] tel:+ [phone] [facility] No Information Gio-1 2-201 4 Darian Haines. [address] [place], [place], [address], [place]. tel:+ [phone] [facility], [address], [address], [place] tel:+ [phone] [facility] No Information Gio-1 1-201 4 Darian Haines. [address] [place], [place], [address], [place]. tel:[phone] [facility], [address] , [place], [address], [place] tel:[phone] [facility] No Information Gio-1 0-201 4 Darian Haines. [address] [place], [place], [address], [place]. tel:[phone] [facility], [address] , [place], [address], [place] tel:[phone] [facility] No Information Gio-0 7-201 4 Farmer Zaki. [address] , [place], [place], [address], [place]. tel:[phone] [facility], [address] , [place], [address], [place] tel:[phone] [facility] No Information Gio-0 6-201 4 Neha Almonte. [address] , [place], [place], [address], [place]. tel:[phone] [facility], [address] , [place], [address], [place] tel:+ [phone] [facility] No Information Gio-0 6-201 4 Darian Zaki. [address] [place], [address], [place]. tel:[phone] [facility], [address] , [place], [address], US tel:+ [phone] [facility] No Information Gio-0 5-201 4 Farmer Zaki. [address] , [place], [place], [address], [place]. tel:[phone] [facility], [address], [address], [place] tel:[phone] [facility] No Information Gio-0 4-201 4 Farmer Zaki. [address], [place], [place], [address], [place]. tel:[phone] [facility], [address] , [place], [address], [place] tel:[phone] [facility] No Information Gio-0 2-201 4 Farmer Zaki. [address] , [place], [place], [address], [place]. tel:[phone] [facility], [address] , [place], [address], [place] tel:[phone] [facility] No Information May-3 1- 4 Farmer Zaki. [address] , [place], [place], [address], [place]. tel:[phone] [facility], [address] , [place], [address], [place] tel:+ [phone] [facility] No Information May-3 0-201 4 Sierraev Quick. [address] , [place], [place], [address], [place]. tel:[phone] [facility], [address] , [place], [address], [place] tel:+ [phone] [facility] No Information October-3 0- 4 Farmer Zaki. [address] [place], [place], [address], [place]. tel:[phone] [facility], [address] , [place], [address], [place] tel:+ [phone] [facility] No Information May-2 8- 4 Farmer Zaki. [address] , [place], [place], [address], [place]. tel:[phone] [facility], [address] , [place], [address], [place] tel:+ [phone] [facility] No Information May-2 7- 4 Farmer Zkai. [address] [place], [place], [address], [place]. tel:[phone] [facility], [address] , [place], [address], [place] tel:[phone] [facility] No Information May-2 4-201 4 Farmer Zaki. [address] [place], [place], [address], [place]. tel:[phone] [facility], [address] , [place], [address], [place] tel:[phone] [facility] No Information May-2 3-201 4 Solomon Suzy. [address] [place], [place], [address], [place]. tel:[phone] [facility], [address] , [place], [address], [place] tel:+ [phone] [facility] No Information May-2 3-201 4 Farmer Zaki. [address] , [place], [place], [address], [place]. tel:[phone] [facility], [address] , [place], [address], [place] tel:+ [phone] [facility] No Information October-2 2-201 4 Farmer Zaki. [address] [place], [place], [address], [place]. tel:[phone] [facility], [address], [address], [place] tel:+ [phone] [facility] No Information May-2 1-201 4 Farmer Zaki. [address] , [place], [place], [address], [place]. tel:[phone] [facility], [address] , [place], [address], [place] tel:[phone] [facility] No Information May-2 0-201 4 Farmer Zaki. [address] [place], [place], [address], [place]. tel:[phone] [facility], [address], [address], [place] tel:[phone] [facility] No Information October-1 7- 4 Farmer Zaki. [address] [place], [place], [address], [place]. tel:[phone] [facility], [address] , [place], [address], [place] tel:[phone] [facility] No Information October-1 6-201 4 Solomon Suzy. [address] [facility] [place], [address], [place]. tel:[phone] [facility], [address] [place] [address], [address], [place] tel:[phone] [facility] No Information 4 Darian Haines. [address] [place], [place], [address], [place]. tel:[phone] OFFICE/OUTPA TIENT VISIT, EST [facility], [address] [place], [address], [place] tel:[phone] [facility] Adult Medicine Stablish Care (chief complaint)nec k pain (chief complaint)hea daches (chief complaint) DepressionSmo kerNeck pain, chronicMigrai ne 4 Yuniel Medel Paz. [address] [place], [place], [address], [place]. tel:[phone] [facility], [address] [place] [address], [address], [place] tel:[phone] [facility] No Information 4 Darian Haines. [address] [place], [place], [address], [place]. tel:[phone] [facility], [address] [place] [address], [address], [place] tel:[phone] [facility] No Information 4 Lucía Schulz. [address] [place], [place], [address], [place]. tel:[phone] [facility], [address] [place] [address], [address], [place] tel:[phone] [facility] No Information 4 Darian Haines. [address] [place], [place], [address], [place]. tel:[phone] [facility], [address] [place] [address], [address], [place] tel:[phone] [facility] No Information May-1 0-201 4 Darian Haines. [address] [place], [place], [address], [place]. tel:[phone] [facility], [address], [address], [place] tel:[phone] [facility] No Information May-0 9-201 4 Sierra Quick. [address] [place], [address], [place]. tel:[phone] [facility], [address] [place], [place] [address] [place], [address], [place] tel:[phone] [facility] No Information May-0 9-201 4 Darian Haines. [address] [place], [place], [address], [place]. tel:[phone] OFFICE/OUTPA TIENT VISIT, EST [facility], [address] [place], [place] [address] [place], [address], [place] tel:[phone] [facility] substance abuse (chief complaint) No Information May-0 7-201 4 Guille Luke. [address] [place], [place], [address], [place]. tel:[phone] [facility], [address] [place], [place] [address] [place], [address], [place] tel:[phone] [facility] No Information May-0 7-201 4 Darian Haines. [address] [place], [place], [address], [place]. tel:[phone] [facility], [address], [address], [place] tel:[phone] [facility] No Information May-0 6-201 4 Darian Haines. [address] [place], [place], [address], [place]. tel:[phone] [facility], [address], [address], [place] tel:[phone] [facility] No Information May-0 3-201 4 Darian Zaki. [address], [place], [place], [id number], [place]. tel:[phone] [facility], [address], [place], [address], [place] tel:[phone] [place] [facility] No Information May-0 2-201 4 Farmer Zaki. [address], [place], [place], [id number], [place]. tel:[phone] [facility], [address] , [place], [address], [place] tel:[phone] [place] [facility] No Information May-0 1-201 4 Farmer Zaki. [address], [place], [place], [id number], [place]. tel:[phone] [facility], [address] , [place], [address], [place] tel:[phone] [place] [facility] No Information Apr-3 0-201 4 Lucía Schulz. [address], [place], [place], [id number], [place]. tel:[phone] [facility], [address] , [place], [address], [place] tel:[phone] [place] [facility] No Information Apr-3 0-201 4 Farmer Zaki. [address] , [place], [place], [id number], [place]. tel:[phone] [facility], [address] , [place], [address], [place] tel:[phone] [place] [facility] No Information Apr-2 6-201 4 Darian Haines. [address] , [place], [place], [id number], [place]. tel:[phone] [facility], [address] , [place], [address], [place] tel:[phone] [place] [facility] No Information Apr-2 5-201 4 Sierra Quick. [address], [place], [place], [id number], [place]. tel:[phone] [facility], [address], [place], [address], [place] tel:+ [phone] [facility] No Information Apr-2 4 Darian Haines. [address], [place], [place], [id number], [place]. tel:[phone] [facility], [address], [place], [address], [place] tel:+ [phone] [facility] No Information Sep-2 4 Darian Zaki. [address], [place], [place], [id number], [place]. tel:[phone] [facility], [address], [place], [address], [place] tel:+ [phone] [facility] No Information Sep-2 4 Lucía Schulz. [address], [place], [place], [id number], [place]. tel:[phone] [facility], [address], [place], [address], [place] tel:+ [phone] [facility] No Information Sep-2 4 Darian Zaki. [address], [place], [place], [id number], [place]. tel:[phone] [facility], [address], [place], [address], [place] tel:+ [phone] [facility] No Information Sep-2 4 Darian Haines. [address], [place], [place], [id number], [place]. tel:[phone] [facility], [address], [place], [address], [place] tel:+ [phone] [facility] No Information Sep-1 4 Farmer Zaki. [address], [place], [place], [address], [place]. tel:[phone] [facility], [address], [place], [address], [place] tel:+ [phone] [facility] No Information 4 Lucía Zeus. [address], [place], [place], [id number], [place]. tel:[phone] [facility], [address], [place], [address], [place] tel:+ [phone] [facility] No Information 4 Darian Haines. [address], [place], [place], [id number], [place]. tel:[phone] [facility], [address], [place], [address], [place] tel:+ [phone] [facility] No Information 4 Darian Haines. [address], [place], [place], [address], [place]. tel:+ [phone] [facility], [address], [place], [address], [place] tel:+ [phone] [facility] No Information 4 Darian Haines. [address], [place], [place], [id number], [place]. tel:+ [phone] [facility], [address], [place], [address], [place] tel:+ [phone] [facility] No Information 4 Farmer Zaki. [address], [place], [place], [id number], [place]. tel:+ [phone] [facility], [address], [place], [address], [place] tel:+ [phone] [facility] No Information 4 Farmer Zaki. [address], [place], [place], [address], [place]. tel:[phone] [facility], [address], [place], [address], [place] tel:[phone] [facility] No Information Apr-1 1-201 4 Darian Haines. [address], [place], [place], [id number], [place]. tel:[phone] [facility], [address] , [place], [address], [place] tel:+ [phone] [facility] No Information Apr-1 0-201 4 Sierra Quick. [address], [place], [place], [id number], [place]. tel:[phone] [facility], [address] , [place], [address], [place] tel:+ [phone] [facility] No Information Apr-1 0-201 4 Darian Haines. [address], [place], [place], [address], [place]. tel:[phone] [facility], [address] , [place], [address], [place] tel:+ [phone] [facility] No Information Apr-0 9-201 4 Darian Haines. [address], [place], [place], [address], [place]. tel:[phone] [facility], [address] , [place], [address], [place] tel:+ [phone] [facility] No Information Apr-0 8-201 4 Darian Haines. [address], [place], [place], [address], [place]. tel:[phone] [facility], [address], [place], [address], [place] tel:[phone] [facility] No Information Apr-0 5-201 4 Darian Haines. [address], [place], [place], [address], [place]. tel:[phone] [facility], [address] , [place], [address], [place] tel:+ [phone] [facility] No Information Apr-0 4-201 4 Farmer Zaki. [address], [place], [place], [address], [place]. tel:[phone] [facility], [address], [place], [address], [place] tel:[phone] [facility] No Information Apr-0 3-201 4 Darian Zaki. [address], [place], [place], [address], [place]. tel:[phone] [facility], [address], [place], [address], [place] tel:[phone] [facility] No Information Apr-0 1- 4 Darian Zaki. [address], [place], [place], [address], [place]. tel:[phone] [facility], [address], [place], [address], [place] tel:[phone] [facility] No Information Mar-3 1- 4 Darian Zaki. [address], [place], [place], [address], [place]. tel:[phone] [facility], [address], [place], [address], [place] tel:[phone] [facility] No Information Mar-2 4 Darian Zaki. [address], [place], [place], [id number], [place]. tel:[phone] [facility], [address], [place], [address], [place] tel:[phone] [facility] No Information Mar-2 8 4 Darian Zaki. [address], [place], [place], [address], [place]. tel:[phone] [facility], [address], [place], [address], [place] tel:[phone] [facility] No Information Mar-2 7- 4 Farmer Zaki. [address], [place], [place], [id number], [place]. tel:[phone] [facility], [address], [place], [address], [place] tel:+ [phone] [facility] No Information Mar-2 4 Sierra Abdelrahman. [address], [place], [place], [address], [place]. tel:[phone] [facility], [address], [place], [address], [place] tel:+ [phone] [facility] No Information Mar-2 4 Farmer Zaki. [address], [place], [address], [place]. tel:[phone] [facility], [address], [place], [address], [place] tel:+ [phone] [facility] No Information Mar-2 - 4 Farmer Zaki. [address], [place], [place], [address], [place]. tel:[phone] [facility], [address], [place], [address], [place] tel:+ [phone] [facility] No Information Mar-2 4 Farmer Zaki. [address], [place], [place], [address], [place]. tel:[phone] [facility], [address], [place], [address], [place] tel:+ [phone] [facility] No Information Mar-2 4 Farmer Zaki. [address], [place], [place], [address], [place]. tel:[phone] [facility], [address], [place], [address], [place] tel:+ [phone] [facility] No Information Mar-1 4 Sierra Abdelrahman. [address], [place], [place], [address], [place]. tel:[phone] [facility], [address], [place], [address], [place] tel:[phone] [facility] No Information 4 Darian Haines. [address], [place], [place], [id number], [place]. tel:[phone] [facility], [address], [place], [address], [place] tel:+ [phone] [facility] No Information 4 Sierra Quick. [address], [place], [place], [address], [place]. tel:[phone] [facility], [address], [place], [address], [place] tel:+ [phone] [facility] No Information 4 Darian Haines. [address], [place], [place], [address], [place]. tel:[phone] [facility], [address], [place], [address], [place] tel:+ [phone] [facility] No Information 4 Darian Haines. [address], [place], [place], [id number], [place]. tel:[phone] [facility], [address] , [place], [address], [place] tel:[phone] [facility] No Information 4 Farmer Zaki. [address], [place], [place], [address], [place]. tel:[phone] [facility], [address], [place], [address], [place] tel:[phone] [facility] No Information 4 Farmer Zaki. [address], [place], [place], [address], [place]. tel:[phone] [facility], [address], [place], [address], [place] tel:+ [phone] [facility] No Information Mar-1 4 Sierra Quick. [address] [place], [address], [place]. tel:[phone] [facility], [address] [facility], [place], [address], [place] tel:+ [phone] [facility] No Information Mar-1 4 Darian Haines. [address] [place], [place], [address], [place]. tel:[phone] [facility], [address], [address], [place] tel:+ [phone] [facility] No Information Mar-0 4 Darian Haines. [address] [place], [place], [address], [place]. tel:[phone] [facility], [address] [place], [address], [place] tel:+ [phone] [facility] No Information Mar-0 4 Darian Haines. [address] [place], [place], [address], [place]. tel:[phone] OFFICE/OUTPA TIENT VISIT, EST [facility], [address] [place], [place] [address] [place], [address], [place] tel:+ [phone] [facility] substance abuse (chief complaint) Nondependent cannabis abuse, unspecified use Mar-0 5 4 Guille Butler. [address] [place], [place], [address], [place]. tel:[phone] [facility], [address] [place], [place] [address] [place], [address], [place] tel:+ [phone] [facility] No Information Mar-0 4 Darian Haines. [address] [place], [place], [id number], [place]. tel:[phone] [facility], [address] [place], [address], [place] tel:+ [phone] [facility] No Information Mar-0 4-201 4 Sierra Abdelrahman. [address] [place], [place], [address], [place]. tel:[phone] [facility], [address] , [place], [address], [place] tel:+ [phone] [facility] No Information Mar-0 4-201 4 Farmer Zaki. [address] , [place], [place], [address], [place]. tel:[phone] [facility], [address] , [place], [address], [place] tel:+ [phone] [facility] No Information Mar-0 3-201 4 Sierra Abdelrahman. [address] , [place], [place], [address], [place]. tel:[phone] [facility], [address] , [place], [address], [place] tel:+ [phone] [facility] No Information Mar-0 3-201 4 Farmer Zaki. [address] , [place], [place], [address], [place]. tel:[phone] [facility], [address] , [place], [address], [place] tel:+ [phone] [facility] No Information Mar-0 1-201 4 Farmer Zaki. [address], [place], [place], [address], [place]. tel:[phone] [facility], [address] , [place], [address], [place] tel:+ [phone] [facility] No Information Jul-07 19-201 4 Farmer Zaki. [address] [place], [place], [address], [place]. tel:[phone] [facility], [address] , [place], [address], [place] tel:+ [phone] [facility] No Information Feb-2 6 4 Farmer Zaki. [address], [place], [place], [address], [place]. tel:[phone] [facility], [address] , [place], [address], [place] tel:+ [phone] [facility] No Information Feb-2 4 Sierraev Quick. [address] [place], [place], [address], [place]. tel:[phone] [facility], [address] , [place], [address], [place] tel:+ [phone] [facility] No Information b-2 4 Farmer Zaki. [address] [place], [place], [address], [place]. tel:[phone] [facility], [address], [address], [place] tel:+ [phone] [facility] No Information b-2 - 4 Darian Haines. [address] [place], [place], [address], [place]. tel:[phone] [facility], [address], [address], [place] tel:+ [phone] [facility] No Information b-2 2 4 Farmer Zaki. [address] [place], [place], [address], [place]. tel:[phone] [facility], [address], [address], [place] tel:[phone] [facility] No Information b-2 0 4 Farmer Zaki. [address] , [place], [place], [address], [place]. tel:[phone] [facility], [address] , [place], [address], [place] tel:[phone] [facility] No Information b 4 Darian Haines. [address], [place], [place], [address], [place]. tel:[phone] [facility], [address], [address], [place] tel:+ [phone] [facility] substance abuse (chief complaint) No Information 4 Sierra Quick. [address] [place], [address], [place]. tel:[phone] [facility], [address], [address], [place] tel:+ [phone] [facility] No Information 4 Darian Haines. [address], [place], [place], [address], [place]. tel:[phone] [facility], [address], [address], [place] tel:+ [phone] [facility] No Information 4 Darian Haines. [address], [place], [place], [address], [place]. tel:[phone] [facility], [address] , [place], [address], [place] tel:+ [phone] [facility] No Information 4 Darian Haines. [address] [place], [address], [place]. tel:[phone] [facility], [address] , [place], [address], [place] tel:+ [phone] [facility] No Information 4 Darian Haines. [address], [place], [place], [address], [place]. tel:[phone] [facility], [address] , [place], [address], [place] tel:[phone] [facility] No Information b 0 4 Farmer Zaki. [address], [place], [place], [address], [place]. tel:[phone] [facility], [address] , [place], [address], [place] tel:[phone] [facility] No Information Feb-0 8 4 Darian Zaki. [address], [place], [place], [address], [place]. tel:[phone] [facility], [address] , [place], [address], [place] tel:[phone] [facility] No Information Feb-0 4 Darian Zaki. [address] , [place], [place], [address], [place]. tel:[phone] [facility], [address] , [place], [address], [place] tel:[phone] [facility] No Information Feb-0 4 Darian Zaki. [address], [place], [place], [address], [place]. tel:[phone] [facility], [address] , [place], [address], [place] tel:[phone] [facility] No Information Feb-0 4 Darian Zaki. [address] , [place], [place], [address], [place]. tel:[phone] [facility], [address] , [place], [address], [place] tel:[phone] [facility] No Information Feb-0 4 Darian Zaki. [address] [place], [place], [address], [place]. tel:[phone] [facility], [address] , [place], [address], [place] tel:[phone] [facility] No Information 4 Farmer Zaki. [address], [place], [place], [address], [place]. tel:[phone] [facility], [address], [place], [address], [place] tel:+ [phone] [facility] No Information 4 Farmer Zaki. [address], [place], [place], [address], [place]. tel:[phone] [facility], [address], [place], [address], [place] tel:+ [phone] [facility] No Information 4 Sierra Quick. [address], [place], [place], [address], [place]. tel:[phone] [facility], [address], [place], [address], [place] tel:+ [phone] [facility] No Information 4 Darian Haines. [address], [place], [place], [address], [place]. tel:[phone] [facility], [address], [place], [address], [place] tel:+ [phone] [facility] No Information 4 Darian Haines. [address], [place], [place], [address], [place]. tel:[phone] [facility], [address], [place], [address], [place] tel:+ [phone] [facility] No Information 4 Darian Zaki. [address], [place], [place], [address], [place]. tel:[phone] [facility], [address], [place], [address], [place] tel:[phone] [facility] No Information 4 Darian Haines. [address], [place], [place], [address], [place]. tel:[phone] [facility], [address], [place], [address], [place] tel:+ [phone] [facility] No Information 4 Darian Haines. [address], [place], [place], [address], [place]. tel:[phone] [facility], [address], [place], [address], [place] tel:+ [phone] [facility] No Information 4 Darian Haines. [address], [place], [place], [address], [place]. tel:[phone] [facility], [address], [place], [address], [place] tel:+ [phone] [facility] No Information 4 Darian Haines. [address], [place], [place], [address], [place]. tel:+ [phone] [facility], [address], [place], [address], [place] tel:+ [phone] [facility] No Information 4 Darian Haines. [address], [place], [place], [address], [place]. tel:+ [phone] [facility], [address], [place], [address], [place] tel:+ [phone] [facility] No Information 4 Darian Haines. [address], [place], [place], [address], [place]. tel:+ [phone] [facility], [address], [place], [address], [place] tel:+ [phone] [facility] No Information 4 Darian Haines. [address], [place], [place], [address], [place]. tel:[phone] [facility], [address], [place], [address], [place] tel:+ [phone] [facility] No Information 4 Darian Haines. [address], [place], [place], [address], [place]. tel:[phone] [facility], [address], [place], [address], [place] tel:+ [phone] [facility] No Information 0 4 Darian Haines. [address], [place], [place], [address], [place]. tel:[phone] [facility], [address], [place], [address], [place] tel:+ [phone] [facility] No Information 4 Sierraev Quick. [address] , [place], [place], [address], [place]. tel:[phone] [facility], [address] , [place], [address], [place] tel:+ [phone] [facility] No Information 4 Darian Haines. [address] [place], [address], [place]. tel:[phone] [facility], [address] , [place], [address], [place] tel:+ [phone] [facility] No Information 4 Darian Haines. [address] [place], [address], [place]. tel:[phone] [facility], [address] , [place], [address], [place] tel:+ [phone] [facility] No Information 4 Farmer Zaki. [address], [place], [place], [address], [place]. tel:[phone] [facility], [address], [place], [address], [place] tel:[phone] [facility] No Information 4 Farmer Zaki. [address], [place], [place], [address], [place]. tel:[phone] [facility], [address], [place], [address], [place] tel:[phone] [facility] No Information 0 3-201 4 Darian Zaki. [address], [place], [place], [address], [place]. tel:[phone] [facility], [address], [place], [address], [place] tel:+ [phone] [facility] No Information 2- 4 Darian Zaki. [address], [place], [place], [address], [place]. tel:[phone] [facility], [address] , [place], [address], [place] tel:+ [phone] [facility] No Information 3 - 3 Darian Zaki. [address], [place], [place], [address], [place]. tel:[phone] [facility], [address] , [place], [address], [place] tel:+ [phone] [facility] No Information 3 0 3 Darian Zaki. [address] [place], [address], [place]. tel:[phone] [facility], [address], [place], [address], [place] tel:+ [phone] [facility] No Information 2 3 Darian Zaki. [address], [place], [place], [address], [place]. tel:[phone] [facility], [address], [place], [address], [place] tel:+ [phone] [facility] No Information 2 3 Darian Zaki. [address], [place], [place], [address], [place]. tel:+ [phone] [facility], [address], [place], [address], [place] tel:+ [phone] [facility] No Information Dec-2 6- 3 Farmer Zaki. [address], [place], [place], [address], [place]. tel:+ [phone] [facility], [address], [place], [address], [place] tel:+ [phone] [facility] No Information Dec-2 4- 3 Farmer Zaki. [address], [place], [place], [address], [place]. tel:+ [phone] [facility], [address], [place], [address], [place] tel:+ [phone] [facility] No Information Dec-2 3- 3 Farmer Zaki. [address], [place], [place], [address], [place]. tel:+ [phone] [facility], [address], [place], [address], [place] tel:+ [phone] [facility] No Information Dec-2 1- 3 Farmer Zaki. [address], [place], [place], [address], [place]. tel:+ [phone] [facility], [address], [place], [address], [place] tel:+ [phone] [facility] No Information Dec-2 0- 3 Farmer Zaki. [address], [place], [place], [address], [place]. tel:+ [phone] [facility], [address], [place], [address], [place] tel:+ [phone] [facility] No Information Dec-1 9 3 Farmer Zaki. [address], [place], [place], [address], [place]. tel:+ [phone] [facility], [address] , [place], [address], [place] tel:+ [phone] [facility] No Information 3 Farmer Zaki. [address], [place], [place], [address], [place]. tel:[phone] [facility], [address] , [place], [address], [place] tel:+ [phone] [facility] substance abuse (chief complaint) No Information 3 Sierra Quick. [address], [place], [place], [id number], [place]. tel:[phone] [facility], [address], [address], [place] tel:+ [phone] [facility] No Information 3 Darian Haines. [address] [place], [place], [address], [place]. tel:+ [phone] [facility], [address], [address], [place] tel:+ [phone] [facility] No Information 3 Farmer Zaki. [address] [place], [place], [address], [place]. tel:[phone] [facility], [address], [address], [place] tel:+ [phone] [facility] No Information 3 Darian Haines. [address] [place], [address], [place]. tel:+ [phone] [facility], [address] , [place], [address], [place] tel:+ [phone] [facility] No Information 3 Darian Haines. [address] [place], [address], [place]. tel:[phone] [facility], [address], [address], [place] tel:+ [phone] [facility] No Information Dec-1 2-201 3 Farmer Zaki. [address], [place], [place], [address], [place]. tel:+ [phone] [facility], [address] , [place], [address], [place] tel:+ [phone] [facility] No Information Dec-1 1-201 3 Farmer Zaki. [address], [place], [place], [address], [place]. tel:+ [phone] [facility], [address] , [place], [address], [place] tel:+ [phone] [facility] No Information Dec-1 0-201 3 Farmer Zaki. [address], [place], [place], [address], [place]. tel:+ [phone] [facility], [address] , [place], [address], [place] tel:+ [phone] [facility] No Information Dec-0 9-201 3 Farmer Zaki. [address], [place], [place], [address], [place]. tel:+ [phone] [facility], [address] , [place], [address], [place] tel:+ [phone] [facility] No Information Dec-0 7-201 3 Farmer Zaki. [address], [place], [place], [address], [place]. tel:+ [phone] [facility], [address] , [place], [address], [place] tel:+ [phone] [facility] No Information Dec-0 6-201 3 Farmer Zaki. [address], [place], [place], [address], [place]. tel:+ [phone] [facility], [address] , [place], [address], [place] tel:+ [phone] [facility] No Information Dec-0 5-201 3 Darian Haines. [address] , [place], [place], [address], [place]. tel:[phone] [facility], [address] [facility], [place], [address], [place] tel:+ [phone] [facility] No Information Dec-0 4-201 3 Darian Haines. [address] [place], [address], [place]. tel:[phone] [facility], [address], [address], [place] tel:+ [phone] [facility] No Information Dec-0 3-201 3 Darian Haines. [address] [place], [address], [place]. tel:[phone] [facility], [address], [address], [place] tel:+ [phone] [facility] substance abuse (chief complaint) Alcohol dependence in remission Dec-0 2-201 3 Sierra Quick. [address] [place], [address], [place]. tel:[phone] OFFICE/OUTPA TIENT VISIT, NEW [facility], [address] [place], [place] [address] [place], [address], [place] tel:[phone] [facility] substance abuse (chief complaint)sub stance abuse (chief complaint) No Information Dec-0 2-201 3 Serge Barnhart. [address] [place], [address], [place]. tel:[phone] [facility], [address], [address], [place] tel:[phone] [facility] No Information Dec-0 2-201 3 Darian Haines. [address] [place], [id number], [place]. tel:[phone] OFFICE/OUTPA TIENT VISIT, NEW [facility], [address], [address], [place] tel:[phone] [facility] establish care (chief complaint)davin k pain (chief complaint) Bipolar affect, depressedADHD (attention deficit hyperactivity disorder)Jas c disorder without agoraphobiaLu mbagoAttentio n deficit disorder of childhood with hyperactivity HTNTobacco Abuse 1 Yuniel Mullen. [address] [place], [place], [id number], [place]. tel:[phone] [facility], [address] [place], [address], [place] tel:[phone] [facility] No Information 1 Yuniel Mullen. [address] [place], [place], [id number], [place]. tel:[phone] [facility], [address] [place] [address], [address], [place] tel:[phone] [facility] No Information 0 Kar Don. [address] [place], [place], [id number], [place]. tel:[phone] [facility], [address] [place] [address], [address], [place] tel:[phone] [facility] No Information Sep-2 7-201 0 Kar Don. [address] [place], [id number], [place]. tel:[phone] [facility], [address] [place] [address], [address], [place] tel:[phone] [facility] No Information Sep-1 3-201 0 Kar Don. [address] [place], [place], [id number], [place]. tel:[phone] [facility], [address] [place], [address], [place] tel:[phone] [facility] No Information Sep-0 9-201 0 Kar Don. [address] [place], [id number], [place]. tel:[phone] [facility], [address], [place], [address], [place] tel:[phone] [facility] No Information - 0 Kar Don. [address] [place], [id number], [place]. tel:[phone] [facility], [address], [place], [address], [place] tel: [phone] [facility] No Information 0 Kar Don. [address] [place], [id number], [place]. tel:[phone] [facility], [address], [place], [address], [place] tel:[phone] [facility] No Information 0 2 0 Kar Don. [address] [place], [id number], [place]. tel:[phone] [facility], [address] , [place], [address], [place] tel:[phone] [facility] No Information 0 Kar Don. [address] [place], [place], [id number], [place]. tel:[phone] [facility], [address] , [place], [address], [place] tel: [phone] [facility] No Information 0 Maisha Joshi. [address] [place], [place], [id number], [place]. tel:[phone] [facility], [address] , [place], [address], [place] tel:[phone] [facility] No Information 0 Kar Don. [address] [place], [place], [id number], [place]. tel:[phone] As per patient privacy policy some of the clinical information may not be visible. Family History Family Member Type Diagnosis Age At Onset Mother Problem (finding) Anxiety Half brother (M) Problem (finding) cancer of colon Immunizations Vaccine Date Status Comments Hep B, adult, 3 dose administered Note: V accine Given By Jordyn Kirby Justin ; Source: New Immunization Record Hep B, adult, 3 dose administered Note: Robin WANG ; Source: New Immunization Record Tdap administered Note: vis ; Source: New Immunization Record influenza, injectable, quadrivalent, (3 years or older) administered Note: vis 01/28/14 ; Source: New Immunization Record Payers Payer name Insurance type Covered alliance party ID Authoriza tion(s) Medical Records CI 1 Social History Type Description Quantity Date Captured Comments Sex Female Smoking Status No Information Sexual Orientation Bisexual Chief Complaint And Reason For Visit No Information Reason For Referral Reason For Referral No Information Plan Of Treatment Date Type Action Status Goal Lipid panel. Due on due Goal BMI. Due on due Goal Lipid panel. Due on due Goal BMI. Due on due Goal Lipid panel. Due on due Goal BMI. Due on due Goal Lipid panel. Due on due Goal BMI. Due on due Goal Lipid panel. Due on due Goal Lipid panel. Due on due Goal Lipid panel. Due on due Goal Lipid panel. Due on due Goal Lipid panel. Due on due Goal Lipid panel. Due on due Goal CMP. Due on due Goal Lipid panel. Due on due Goal HPV, high-risk. Due on due Goal Lipid panel. Due on due Goal HPV, high-risk. Due on due Goal CMP. Due on due Goal CMP. Due on due Goal Lipid panel. Due on due Goal HPV, high-risk. Due on due Goal Lipid panel. Due on due Goal CMP. Due on due Goal HPV, high-risk. Due on due Goal Lipid panel. Due on due Goal CMP. Due on due Goal HPV, high-risk. Due on due Goal HPV, high-risk. Due on due Goal Lipid panel. Due on due Goal CMP. Due on due Goal CMP. Due on due Goal Lipid panel. Due on due Goal HPV, high-risk. Due on due Goal HPV, high-risk. Due on due Goal Lipid panel. Due on due Goal CMP. Due on due Goal Lipid panel. Due on due Goal CMP. Due on due Goal HPV, high-risk. Due on due Goal CMP. Due on due Goal Lipid panel. Due on due Goal HPV, high-risk. Due on due Goal Lipid panel. Due on due Goal HPV, high-risk. Due on due Goal CMP. Due on due Goal HPV, high-risk. Due on due Goal CMP. Due on due Goal Lipid panel. Due on due Goal BMI. Due on due Goal HPV, high-risk. Due on due Goal CMP. Due on due Goal Lipid panel. Due on due Goal CMP. Due on due Goal Lipid panel. Due on due Goal HPV, high-risk. Due on due Goal Lipid panel. Due on due Goal HPV, high-risk. Due on due Goal CMP. Due on due Goal CMP. Due on due Goal Lipid panel. Due on due Goal HPV, high-risk. Due on due Goal HPV, high-risk. Due on due Goal CMP. Due on due Goal Lipid panel. Due on due Goal Lipid panel. Due on due Goal CMP. Due on due Goal HPV, high-risk. Due on due Goal CMP. Due on due Goal Lipid panel. Due on due Goal HPV, high-risk. Due on due Goal Lipid panel. Due on due Goal CMP. Due on due Goal HPV, high-risk. Due on due Goal Lipid panel. Due on due Goal CMP. Due on due Goal HPV, high-risk. Due on due Goal CMP. Due on due Goal Lipid panel. Due on due Goal HPV, high-risk. Due on due Goal CMP. Due on due Goal Lipid panel. Due on due Goal HPV, high-risk. Due on due Goal Lipid panel. Due on due Goal CMP. Due on due Goal HPV, high-risk. Due on due Goal Lipid panel. Due on due Goal CMP. Due on due Goal HPV, high-risk. Due on due Goal CMP. Due on due Goal Lipid panel. Due on due Goal HPV, high-risk. Due on due Goal Lipid panel. Due on due Goal CMP. Due on due Goal HPV, high-risk. Due on due Goal Lipid panel. Due on due Goal CMP. Due on due Goal HPV, high-risk. Due on due Goal Lipid panel. Due on due Goal CMP. Due on due Goal HPV, high-risk. Due on due Goal CMP. Due on due Goal HPV, high-risk. Due on due Goal Lipid panel. Due on due Goal HPV, high-risk. Due on due Goal Lipid panel. Due on due Goal CMP. Due on due Goal HPV, high-risk. Due on due Goal CMP. Due on due Goal Lipid panel. Due on due Goal CMP. Due on due Goal Lipid panel. Due on due Goal HPV, high-risk. Due on due Goal Lipid panel. Due on due Goal CMP. Due on due Goal HPV, high-risk. Due on due Goal CMP. Due on due Goal HPV, high-risk. Due on due Goal Lipid panel. Due on due Goal CMP. Due on due Goal Lipid panel. Due on 014 due Goal HPV, high-risk. Due on due Goal Lipid panel. Due on due Goal HPV, high-risk. Due on due Goal CMP. Due on due Goal HPV, high-risk. Due on due Goal Lipid panel. Due on due Goal CMP. Due on due Goal HPV, high-risk. Due on due Goal CMP. Due on due Goal Lipid panel. Due on due Goal CMP. Due on due Goal HPV, high-risk. Due on due Goal Lipid panel. Due on due Goal Lipid panel. Due on due Goal HPV, high-risk. Due on due Goal CMP. Due on due Goal Lipid panel. Due on due Goal HPV, high-risk. Due on due Goal CMP. Due on due Goal HPV, high-risk. Due on due Goal CMP. Due on due Goal Lipid panel. Due on due Goal CMP. Due on due Goal HPV, high-risk. Due on due Goal Lipid panel. Due on due Goal Lipid panel. Due on due Goal CMP. Due on due Goal HPV, high-risk. Due on due Goal HPV, high-risk. Due on due Goal Lipid panel. Due on due Goal Tdap due Goal CMP. Due on due Goal CMP. Due on due Goal Lipid panel. Due on due Goal Tdap. Due on due Goal Td vaccine. Due on due Goal HPV, high-risk. Due on due Goal Lipid panel. Due on due Goal CMP. Due on due Goal HPV, high-risk. Due on due Goal Td vaccine. Due on due Goal Tdap. Due on due Goal CMP. Due on due Goal Lipid panel. Due on due Goal HPV, high-risk. Due on due Goal Tdap. Due on due Goal Td vaccine. Due on due Goal CMP. Due on due Goal Lipid panel. Due on due Goal Td vaccine. Due on due Goal HPV, high-risk. Due on due Goal Tdap. Due on due Goal Tdap. Due on due Goal Lipid panel. Due on due Goal CMP. Due on due Goal HPV, high-risk. Due on due Goal Td vaccine. Due on due Goal HPV, high-risk. Due on due Goal Td vaccine. Due on 14 due Goal Tdap. Due on due Goal CMP. Due on due Goal Lipid panel. Due on due Goal Lipid panel. Due on due Goal HPV, high-risk. Due on due Goal CMP. Due on due Goal Td vaccine. Due on 14 due Goal Tdap. Due on due Goal Depression Scree farrah. Due on due Goal PAP. Due on due Goal CMP. Due on due Goal BMI. Due on due Goal Lipid panel. Due on due Goal Td vaccine. Due on 14 due Goal Tdap. Due on due Goal HPV, high-risk. Due on due Goal CMP. Due on due Goal Tdap. Due on due Goal Td vaccine. Due on due Goal Depression Scree farrah. Due on due Goal BMI. Due on due Goal PAP. Due on due Goal Lipid panel. Due on due Goal HPV, high-risk. Due on due Goal Td vaccine. Due on 14 due Goal HPV, high-risk. Due on due Goal Lipid panel. Due on due Goal Tdap. Due on due Goal PAP. Due on due Goal BMI. Due on due Goal Depression Scree farrah. Due on due Goal CMP. Due on due Goal CMP. Due on due Goal HPV, high-risk. Due on due Goal Lipid panel. Due on due Goal BMI. Due on due Goal Td vaccine. Due on 14 due Goal PAP. Due on due Goal Depression Scree farrah. Due on due Goal Tdap. Due on due Goal Depression Scree farrah. Due on due Goal HPV, high-risk. Due on due Goal PAP. Due on due Goal Tdap. Due on due Goal CMP. Due on due Goal Lipid panel. Due on due Goal Td vaccine. Due on 14 due Goal BMI. Due on due Goal CMP. Due on due Goal Lipid panel. Due on due Goal Depression Scree farrah. Due on due Goal HPV, high-risk. Due on due Goal BMI. Due on due Goal Td vaccine. Due on 14 due Goal PAP. Due on due Goal Tdap. Due on due Goal Depression Scree farrah. Due on due Goal CMP. Due on due Goal Tdap. Due on due Goal PAP. Due on due Goal Lipid panel. Due on due Goal HPV, high-risk. Due on due Goal Td vaccine. Due on 14 due Goal BMI. Due on due Goal PAP. Due on due Goal HPV, high-risk. Due on due Goal Depression Scree farrah. Due on due Goal Td vaccine. Due on 14 due Goal Tdap. Due on due Goal CMP. Due on due Goal Lipid panel. Due on due Goal BMI. Due on due Goal PAP. Due on due Goal Lipid panel. Due on due Goal Td vaccine. Due on 14 due Goal BMI. Due on due Goal CMP. Due on due Goal HPV, high-risk. Due on due Goal Tdap. Due on due Goal Depression Scree farrah. Due on due Goal Tdap. Due on due Goal CMP. Due on due Goal Lipid panel. Due on 014 due Goal PAP. Due on due Goal Td vaccine. Due on due Goal Depression Scree farrah. Due on due Goal HPV, high-risk. Due on due Goal BMI. Due on due Goal Depression Scree farrah. Due on due Goal BMI. Due on due Goal CMP. Due on due Goal Tdap. Due on due Goal HPV, high-risk. Due on due Goal Td vaccine. Due on 14 due Goal PAP. Due on due Goal Lipid panel. Due on due Goal HPV, high-risk. Due on due Goal PAP. Due on due Goal CMP. Due on due Goal Tdap. Due on due Goal Lipid panel. Due on due Goal Depression Scree farrah. Due on due Goal BMI. Due on due Goal Td vaccine. Due on due Goal PAP. Due on due Goal CMP. Due on due Goal Lipid panel. Due on due Goal Td vaccine. Due on due Goal PAP. Due on due Goal HPV, high-risk. Due on due Goal Tdap. Due on due Goal Tobacco cessation counseling completed Referral Ordered: Oncology (related to Lymphadenopathy) ordered Referral Ordered: Gastroenterology (related to Lymphadenopathy) ordered Referral Ordered: Referrals: Oncology. Evaluate and treat ordered Referral Ordered: CT ABD & PEL W/CONT Appointment date/timeframe: 12/19/2015 ordered Referral Ordered: CT THORAX W/DYE ordered Referral Ordered: US EXAM, PELVIC, COMPLETE ordered Referral Ordered: MAMMOGRAM, SCREENING Bilateral ordered Referral Ordered: Physical Therapy (related to Neck pain) ordered Referral Referred To: Physical Therapy Ordered: Referrals: Physical Therapy. Evaluate and treat ordered Referral Ordered: CARDIOVASCULAR STRESS TEST ordered Referral Ordered: Referrals: Gynecology. Evaluate and treat Appointment date/timeframe: 01/20/2016 ordered Referral Ordered: CT ABD & PEL WO/W CONTRAST ordered Referral Ordered: Referrals: Mental Health Counselor ordered Referral Ordered: X-RAY EXAM OF ABDOMEN SINGLE ANTEROPOSTERIOR VIEW ordered Referral Ordered: CHEST X-RAY 2 VIEWS, FRONTAL AND LATERAL ordered Referral Ordered: Referrals: Psychiatry. Evaluate and treat Appointment date/timeframe: 1 Month ordered Referral Ordered: Referrals: Gastroenterology. Evaluate and treat ordered Referral Ordered: Referral: Neurology. Evaluate and treat. ordered Referral Ordered: X-RAY EXAM OF NECK SPINE 2 OR 3 VIEWS ordered Referral Ordered: Referral: Psychologist. Evaluate and treat. ordered Referral Ordered: Physical Therapist/Independent. ordered Referral Ordered: Psychiatry. ordered Referral Ordered: MRI LUMBAR SPINE W/O & W/DYE LUMBAR Left Appointment date/timeframe: 07/15/2010 ordered Referral Ordered: spine clinic. ordered Patient Education Stress Incontinence in Women: After Yo completed Future Order: Lab Order Beta Hum an Chorionic Gonadotropin Qualitative , Urine (99934), Sent on: Sent Future Order: Lab Order CBC (INC LUDES DIFF/PLT) (6399), Sent on: Sent Future Order: Lab Order COMPREHE NSIVE METABOLIC PANEL (31215), Sent on: Sent Future Order: Lab Order HEPATITI S PANEL, ACUTE W/REFLEX (75808), Sent on: Sent Future Order: Lab Order HIV - 1/ 2 Antigen And Antibodies; 4th Generation With Reflexes (43305), Sent on: Sent Future Order: Lab Order RPR (DX) W/REFL TITER AND CONFIRMATORY TESTING (91376), Sent on: Sent Future Order: Lab Order TSH W/RE FLEX TO FT4 (47034), Sent on: Sent Future Order: Lab Order Angioten sin Converting Enzyme (12892), Sent on: Sent Future Order: Lab Order Pro B Na triuretic Peptide (BNP) Blood Level (17132), Sent on: Sent Future Order: Lab Order Urinalys is (99317), Sent on: Sent Future Order: Lab Order CBC w/ D iff (72275), Sent on: Sent Future Order: Lab Order Comprehe nsive Metabolic Panel (04624), Sent on: Sent Future Order: Lab Order Creatine Kinase (13525), Sent on: Sent Future Order: Lab Order Lipid Pa yesenia (36656), Sent on: Sent Future Order: Lab Order TSH FT4 if indicated (79929), Sent on: Sent Future Order: Lab Order HIV 12 A b EIA Screening (12862), Sent on: Sent Future Order: Lab Order Hemoglob in A1c (22256), Sent on: Sent Future Order: Lab Order Hepatic Function Panel (65779), Sent on: Sent Future Order: Lab Order Folate L evel (40157), Sent on: Sent Future Order: Lab Order Vitamin B12 Level (76182), Sent on: Sent Future Order: Lab Order Vitamin D 25 Hydroxy Level (77085), Sent on: Sent Future Order: Lab Order Fecal Fa t qualtitative (76016), Sent on: Sent Future Order: Lab Order IgA (15127), Sent on: Sent Future Order: Lab Order Transglu taminase IgA Antibodies (96054), Sent on: Sent Future Order: Lab Order Endomysi al Antibody IgA (57325), Sent on: Sent Future Order: Lab Order Occult B lood Stool Screening (14504), Sent on: Sent Future Order: Lab Order Hepatiti s Panel (73772), Sent on: Sent History Of Present Illness Encounter Date Complaint History Of Prese nt Illness menorragia 40 yr old is new to me from from Mrs. Ramirez. Pt has MMP and Mutilple [id number] 1996Pap on 08-18-15 neg/negDUB has been comes reuglar cysles but heavy, periods can last 1 1/2 weeks and then start 2 weeks later.Was told Uterus is thick by Dr. Rowe.CT done on 12-25-15 for weight loss showed fibroids.LMP 9-21 heavy for 2 out of 5 days prior period was 3 1/2 weeks before leiomyoma pt unaware of juan vargas. jul 2014 CT doen for anorexia shwoed large fibroids without comment. repeat ct scan 2016 shows probable stability measureing 7 cm will need US vaginal discharge The patient de scribes it as white. It occurs postcoital. Context: LMP: 03/01/2016 and sexually active. Symptom is aggravated by post coital. Associated symptoms include dyspareunia. Additional information: Hx of BV but non showed today. 2nd Hep B Vaccine lymphadenoapthy weight loss lymphadenoapthy (comments) her C T scan showed small insignificant lymphadenopathy. also has periportal lympahadenopathy. unclear etilogy. weight loss (comments) a above. anxiety/depression Related sympt oms are uncontrolled. The patient reports functioning as very difficult. The Global Assessment of Functioning Scale (GAF) = 55. The patient presents with depressed mood, difficulty concentrating, difficulty falling asleep, diminished interest or pleasure, excessive worry, fatigue, loss of appetite, racing thoughts and restlessness but denies thoughts of or suicide. Additional information: Pt presented visibly upset. She stated it is difficult for her to control anxiety/depression w/o proper medication. Pt has appointment w/therapist at [facility] on 12/02. [facility] is working to get her a psychiatry appointment. Pt has decreased appetite. weight loss vaginal discharge weight loss (comments) She think s it is from not able to eat from her anxiety. vaginal discharge (comments) She has vaginal drainage with fishy odor for few days. No chances of STD. She gets BV a lot and she does not know how. She has upcoming appointment with [facility]. She refused to get vaginal exam and she wants treatment for BV with topocal flagyl. Paperwork (comments) needed myrna antony for her drivers licencec. Advised her i do not think she is safe to drive as she is smokign marijuana. Her BP was rally high and she said she only needs benzo as she is having anxiety and she buys benzos off the street. refuses to go to ER. bipolar disorder (comments) unco ntrolled. She lost insuranc and she wants to see psychiatrist. She Paperwork bipolar disorder Bipolar disorder Heavy menstrual bleeding Bipolar disorder (comments) well controlled on current medications, would like to continue taking it. Heavy menstrual bleeding (commen ts) going on for few months. have it for 2 weeks. She does not have that for a week and then it comes back. recent PAP with hpv was normal. she can not urinate right now to hcek pregancny test or GC. She will come back to do it. Bipolar disorder (IM) (comments) She is taking prozac and using seroquel as needed. She was advised to take it everyday and take half if 50 mg is too much to avoid sleepiness. Bipolar disorder (IM) PAP The symptoms are reported as being mild. The location is cervix. Aggravating factors include nothing. Relieving factors include nothing. Patient presents for 1 year follow-up PAP. Last PAP on 08/30/14 was abnormal, ASC-US, negative HPV. Pt. unaware of this, reports last pap was 3 years ago and normal. Sexually active with 1 partner. History of tubal ligation. neck pain (comments) chronic nec k pain. its going in to her mid back. SHe had previous MRI which showed bulging disk. she would like pain medicaitons. bipolar disorder neck pain bipolar disorder (comments) She was using prozac and she did fine. Last time she [facility] put her on prozac and zyprexa and she stopped using zyprexa because it made her gain weight and she did fine on prozac. she has a therapist at [facility]. She said sometimes she has thoughts of harming herself and/or harmign someone else but she does not have a plan to do it. She has a safety plan in case she feels this way. home support worker talked to her and it was determined she is not in immediate harm to ehr or anyone else. will start her on prozac and seroquel at night and recheck in a week. Ear fullness Bipolar disorder Ear fullness (comments) bilatera l ear fullness on and off for about a month. no drainage. sometimes it hurts. no hearing difficulty. Bipolar disorder (comments) not on any medications. follows up at [facility]. awaiting to see psychiatrist. mood is ok right now. She took herself off of methaodne. She is using IV heroin right now off the street. substance abuse Brittanie presents today for her 60-day methadone review. She is currently on 26 mg. She is on an administrative taper. She has not stopped using the benzodiazepines. She is trying to get into a psychiatrist. She is concerned that she has been gaining weight, and would like to go down on her dose of Zyprexa. SHe was prescribed 17.5 mg daily, but has not been taking her evening dose of 15mg for about a month. We discussed some options and she would like to try Prozac. She will discontinue the Zyprexa and start on Prozac. She states that she has previously been on Gabapentin and that it helped with her anxiety as well as her chronic back pain. I did warn her about possible side effects with both new medications. She is not presently attending 12 step meetings, and we discussed starting up again. We also discussed the dangers of combining benzodiazepines with Methadone. She has no other questions or concerns at this time. UDS: THC ([facility]), Klonopin, and XanaxMAPS: No recent activity substance abuse She states the s ymptoms are chronic. Brittanie is here today for her 60 day appointment f/u. She is currently stable on her 61 mg daily dose. Recently she was seen at [facility] ER for anxiety and panic attack. She was sent home without a RX though she did receive ativan IV while there. She has been on Vistaril 50 mg TID prn but claims it is not helping. Some of her anxiety could be related to pressure from significant other demanding she stop Methadone. She is requesting additional meds for the anxiety. She currently takes 17.5 mg Zyprexa per day and clonidine 0.2 mg TID for anxiety, bipolar and schizophrenia. This seems to be stable. I think mirtazpine may be a good choice going forward and will start 15 mg qhs X 2 weeks then 30 mg qhs going forward. She was warned about weight gain and we will need to follow this going forward. I also renewed her Vistaril for one Rx only. She claims to be on a wait list for psychiatry. bipolar anxiety HTN bipolar (comments) was just admi tted to [facility] for bipolar disorder and does not have follow up. Her mood is ok. this is first time diagnosis of bipolar. no problmes with medications. wants to see psychiatrist. anxiety (comments) whenever she has anxity and panic attacks she has pain in middle of her chest. no pain with exertion. has risk factors for CAD with smoking and hypertension. HTN (comments) already on cloni dine. taking it regualrly. no chest pain, SOB or headahce right now. substance abuse Brittanie returns t betzy after being in residential treatment at [facility] for nearly two months. She walked off from the program yesterday. Brittanie states she is slightly disappointed with herself that she chose to leave the program. While she was there her dose of methadone was effective. She has some room to increase her methadone dose at this time. We encouraged her to consider maintaining or increasing her methadone dose to address cravings or temptations that she may have now that she is out of residential.She brought in her medications for documentation today. She is currently taking 15 mg olanzapine QHS, 2 1/2 mg olanzapine QAM, Clonidine. Looking at the script for Clonidine from 05/02 it was inadvertently written for 11 refills. We will correct this with the pharmacy and when Brittanie nears the end of her current bottle of Clonidine we will renew it. Brittanie has been assigned a PCP at [facility] but she has not yet had an appointment with them. Her blood pressure was elevated today, which has been a problem for her in the past as well. We strongly encouraged her to make an appointment to see her PCP to address her blood pressure and let her know that if her blood pressure remains high and she continues to have a headache we recommend that she present to urgent care. She is supposed to be following up with a psychiatrist from [facility]. We reviewed that the most appropriate choice is for them to continue prescribing her psych meds but that we should be able to give her a bridge script if one is needed. She states that she has already spoken to her therapist, Oziel, today and she is planning to speak to Yunior as well before she leaves. MAPS report shows no activityUDS (instant) Urinary frequency Patient report s no pain. The patient does not report any of the following neurological symptoms: diabetes. Pertinent negatives include constipation, dysuria, fecal incontinence, fever, urinary frequency, hematuria, urinary hesitancy, incomplete emptying, leakage requiring pads, loss of vaginal sensation, nocturia, pain, pelvic pain, slow stream, strain to urinate, urgency and recurrent UTI. Patient is sexually active. Additional information: unclear as to duration- but really concerned about STD-. STI The patient desc ribes it as fishy and + risky sex practice-. Context: LMP: 08/01/2014, sexually active and Hx tubal. Pertinent negatives include bleeding, burning, dyspareunia, itching, parasites, persistent diarrhea, vulvar dystrophy and vulvodynia. Additional information: Pt recovering addicit and concerned about having cancer- not taking care of self- lots of people around her Dx with cancer and she has lost weight X 1 week - lots of stress. Not seen Dr Jae viramontes-. substance abuse Brittanie is here t betzy for her 60 day methadone review. She is currently on a dose of 62mg. She comes in for dosing six days per week. Brittanie reports no cravings or side effects. We prescribe Clonidine for her which we will send to her pharmacy today. She also is prescribed Vistaril but states she is not using it. Brittanie's good friend of an overdose three months ago and her neighbor overdosed over the weekend and she is upset today. Brittanie is going into [facility] on Monday for residential treatment for her continued benzodiazepine use, she may also be going to detox prior to this. She has no other questions or concerns at this time.UDS +BZP on 06/30MAPS report shows no activity substance abuse Brittanie is here t betzy for her 60 day methadone review. She is currently on a dose of 67 mg and comes in for dosing six days per week. Brittanie has had her methadone dose reduced several times in the last several months per Dr. Farmer because of continued illicit benzodiazepine use. She feels that her methadone dose is not holding her but we will not increase her dose while she continues to have +BZP UDS. We discussed the potentially lethal results of benzodiazepine use while she is on methadone treatment. We renewed Brittanie's Neurontin and Clonidine, we also prescribed Vistaril for her anxiety. Brittanie states that she has been having pain in her shoulder for several weeks but no shooting pains or rash. No weakness in the shoulder or arm and full range of motion. We encouraged her to continue to monitor it and if she notices any worsening of symptoms to go to an urgent care clinic. She has no other questions or concerns at this time.UDS +BZP, +THC on 05/01 MAPS report shows no activity 3 months f/u depresi on/ anxiety and urine incontinenc Loss of appetite x 9 mths now. Anxiety and depression for years but more in past 9 mths as with boyfriend and disrespectively stepson. Pt with panic attacks. Uses THC for chronic LBP.Pt with episodic abdominal pains with nausea and diarrhoea - 3 times since the past 9 mths.Pt with h/o substance use in the past but not currently- now in the Methadone programHas stress incontinence for 6 mths - tried kegels and it is not working substance abuse Brittanie is here t betzy for her 60 day methadone review. She has been tapering because she thought she might be moving to [place]. She states will not be moving and would like to increase her dose again. Her current dose is 87 mg. She reports she has been having chills, cold sweats and has lost her appetite and lost 20 pounds. We will increase her maximum dose to reflect her symptoms. She has an appointment with her PCP 03/02 and we recommended that she speak to her doctor at that time regarding the loss of appetite and weight loss. We renewed [facility] Neurontin prescription today. She does not attend any meetings or counseling outside the clinic at this time. She has no other questions or concerns at this time. UDS +THC ([facility])MAPS report non-revealing [facility] Pt was being see n at [facility] since last seeing me in 2010; it has been about 2 mths since last being seen there. Was followed there for her BP Still smokes 1 ppd. Has been diagnosed with ADD and Bipolar neck pain Has had this for years - was not addressed as h/o of narcotic addiction and now on methadone. Pain to the neck is 5 with methadone on board. Pt asking for MRI. headaches Has had it for y ears but since being on clonidine her headaches are now twice a week from daily.Starts at nape of neck and goes to the occipital; it is vise like . Pain level is 5. h/o migraine with visual auras. substance abuse substance abuse substance abuse substance abuse Brittanie is a 38yo female with a 9yr history of opiod dependence presenting for admission to methadone MAT. She began use at the age of 29 when prescribed Vicoden for LBP, gradually increasing use with the addition os street opiates. She switched to Heroin 2yr ago, currently using 1/4g per day by IV route. Pt attempted recovery 3yr ago, treated 1 1/2yr through [facility] as well as detox 1yr ago at [facility]. She admits to occasional Klonopin, 1mg 1-2/mo. Other medications include Clonididne 0.3mg bid and Lisinopril 10mg qd prescribed by PCP Dr. Love at [facility]. Documentation including ROS was reveiewed and PE was completed, both on record for review. UA demonstrated +bzo, +opi, +thc and test negative. P-Induction dose of 25mg, range of 25-70mg, increased as appropriate per protocol. Per discussion Pt will avoid benzodiazipins and opiates. Pt will request med for anxiety or insomnia if needed, however states she had a syncopal episode with Trazadone while at [facility]... substance abuse Functional Status Date Functional Assessmen t No Information Instructions Date Instruction Additional Infor manas because of your blee ding we will evaluate the lining ( endometrium) with a biopsy. after cleaning the opening, I will insert a straw like device and suction a sample of the lining these cells we be studied in the lab and we will discuss those findings at the followup visit the biopsy takes less than a minute and usually has no problems. the rare risks are: heavy bleeding, infection, damage to the uterus muscle, and failure to get an adequate sample. Related to Menorrhagia with regular cycle This is normal disch arge an nothing to worry about at this time. Suggested that you eat yogurt with probiotics such as Activia. 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 V iral load is less than 12. no evidence of active infection. should keep checking blood work every 3 months to make sure you dont develop infection. Related to Hepatitis C antibody positive in blood very small, unclear etiology. will get GI and oncology consult. Related to Lymphadenopathy Does not want vagina l exam and she wants flagyl cream. Related to Vaginal discharge see your psychiatrsit YESSY. Rela eleonora to Bipolar affective disorder, currently depressed, moderate Continue current medications. Re lated to Bipolar disorder, in partial remission, most recent episode mixed flagyl for 5 days. Related to Ba cterial vaginosis increase prozac to 2 0 mg daily. take seroquel 25-50 mg daily at night for slee and continue following up with therapist. Related to Bipolar disorder, current episode mixed, mild Today you had a PAP with HPV testing done. Chlamydia/Gonnorrhea testing was also done. It takes at least 1 week to get the results, you will be notified of these results. Call with any questions or concerns. Related to Encounter for routine gynecological examination with Papanicolaou smear of cervix start seroquel at [facility] and start prozac along with it. Let me know how you feel. Related to Bipolar affective disorder, currently manic, severe, with psychotic features start physical thera py and we can get MRI if not better. Related to Neck pain continue following up with psych . Related to Bipolar affective disorder in remission use flonase and let me know if it does not get better. 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 Related to Chest pain see psychiatrist JERARDO P. Continue current medications. stop taking all caffine. Related to Bipolar disorder start amlodipine 5 mg daily. 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 We are able to provide you a bridge script if necessary. We corrected your Clonidine prescription. Please let us know when you are nearing running out and we will renew it for you. We will see you again in 60 days. 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 Related to Cancer screening Screening done today - to protect yourself use of condoms ALways recommneded! FU with Dr Rowe for results - but you need to come back this week to get bloodwork first- Will treat for BV today - Related to Screening exam for STD Today we reviewed yo ur methadone treatment. We renewed your Clonidine and sent it to your pharmacy today. Please keep us informed about your residential treatment and detox, how long you will be there and if you need to reschedule any appointments. We will reevaluate your progress in 60 days. 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 We renewed your Neurontin and Clonidine. We also prescribed you Vistaril. We reviewed the negative consequences and potential lethality of continued benzodiazepine use. We will reevaluate your progress in 60 days. 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, hypnotic or anxiolytic abuse, unspecified Related to Anxie ty and depression Related to Defer red condition on axis II Related to Defer red condition on axis II 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, hypnotic or anxiolytic abuse, unspecified Related to Anxie ty and depression Related to Opioi d type dependence, unspecified use Related to Opioi d type dependence, unspecified use Flu shot given and Tdap Related to Health care maintenance You need to follow u p with the therapist and have him/her refer you to the Psychiatrist for treatment.It may be why you are losing your appetite Related to Anxiety and depression If you have tried th e Kegel's and it is not working , then you may try the Oxybutynin Related to Stress incontinence Do labs and imaging testing donePPDSpeak to your therapist to get Psychiatrist treatment of the anxiety and depressionWill refer you to GI for EGD Pharmd med review for any possible meds Related to Anorexia MA to provide writte n educational materials on stress incontinence Related to Stress incontinence MA to provide writte n educational materials on stress incontinence Related to Stress incontinence PPD Related to Anxie ty and depression Flu shot Related to Healt h care maintenance Tdap Related to Healt h care maintenance Appt to addess changing skin les ion Related to Anxiety and depression Related to Opioi d dependence on agonist therapy Today we reviewed yo ur methadone treatment. Continue with present medication regimen. Please follow up with your PCP regarding your appetite issues. We discussed attending meetings and other ways to help assist your treatment. We will reevaluate your progress in 60 days. 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 Manage symptoms. Obtain psychiatric evaluation. Patient Goal Bipolar To seek out a psychiatrist Patient Goal New Patient Care Teams Name Effective Dates (start - stop) Status Members No Information
--- OUTSIDE RECORDS SUMMARY | 2024-06-29 11:28 | XMS_ITS | Encounter Summary ---
Author Organization [facility] Address [address] [place] [address] Care Team Providers Care Drafter Construction Name Role Phone Dana Crook MD Primary Care Provid er Polly Marijakeith GRILL ATTENDANT Unavailable Unknown, Provider Primary Care Provider Unavaila Dana Block MD Unavailable [phone] Dana Crook MD Unavailable [phone] No Ref-Primary, Physician Primary Care Provider Shabana Fu MD Primary Care Provider + [facility], [facility] Primary Care Provider Reason for Visit * Reason Onset Date Comments Patient Request 11/16/2016 2 Med Refills Encounter Details Date Type Department Care Team (Late st Contact Info) Description 11/16/2016 Telephone [facility] [address] [place] [address] Dana Crook MD [address] [place] [address] Patient Request (2 Med Refills) [...] on file 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 [place] of the pharmacy and phone number for the current request: [facility] [place]; telephone [phone] Name of the medication requested: CLORIDINE & METOPROLOL Other request: *Same pharmacy for both meds Phone number to reach patient: Cell number on file: [phone] Best Time: Anytime Can we leave a [...] documented as of this encounter Care Teams Drafter Construction Relationship Specialty Start Date End Date Dana Crook MD [address] [place] [address] PCP - General Internal Medicine 05/23/16 02/24/17 Unknown, Provider PCP - General 02/25/17 03/10/17 Dana Crook MD [address] [place] [address] PCP - Assigned PCP 03/24/16 08/14/18 No Ref-Primary, Physician PCP - General 03/12/19 03/21/19 Shabana Fu MD [facility] [address] [place] [address] PCP - General Family Practice 03/22/19 03/22/[address] [address] PCP - General 03/23/20 Oz Matias, ALY [employer]rain [employer] Products Inspector 12/16/16 01/15/17 Dana Crook MD [address] [place], [place] [address] Assigned PCP 03/24/16 09/07/19 documented as of this encounter
--- OUTSIDE RECORDS SUMMARY | 2024-06-29 11:28 | XMS_ITS | Referral Summary ---
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
--- OUTSIDE RECORDS SUMMARY | 2024-06-29 11:29 | XMS_ITS | CCD ---
Author Organization Unknown Care Team Providers Care Skidder Operator Name Role Phone Complaint Adjuster, [place] Primary Care Provider Unava ilable Unavailable Chronic Care Management Unavaila ble Summary Purpose DataExchange Insurance Providers Payer name Policy type / Coverage type Covered republican ID Effective Begin Date Effective End Date [facility] Commercial Insurance [id number] Unknown Unkn own Family History Family History data not found Medication Administered No Medication Administered data Reason For Visit No Reason For Visit data
--- OUTSIDE RECORDS SUMMARY | 2024-06-29 11:29 | XMS_ITS | Encounter Summary ---
Author Organization [facility] Address [address] [place] [address] Care Team Providers Care Workers' Compensation Claims Supervisor Name Role Phone Dana Crook MD Primary Care Provid er Oz Matias COMBINER Unavailable [phone] Unknown, Provider Primary Care Provider Unavaila Dana Block MD Unavailable [phone] Dana Crook MD Unavailable [phone] No Ref-Primary, Physician Primary Care Provider Shabana Fu MD Primary Care Provider + [facility], [facility] Primary Care Provider Reason for Visit * Reason Onset Date Comments Outpatient 06/20/2016 Other Encounter Details Date Type Department Care Team ([facility] st Contact Info) Description 06/20/2016 Telephone [facility] Behavioral Health Intake [address] [place] [id number] Generic, Behavioral Intake, Outpatient Social History Tobacco Use Types Packs/Day Years Used Date Smoking Tobacco: Every Day Cigarettes 0.3 15 Comments:a pack every 3 days Alcohol Use Standard Drinks/Week Comments No 0 (1 standard drink = 0.6 oz pur e alcohol) Comments No Sex and Gender Information Value Date Recorded Sex Assigned at Not on file Legal Sex Female 3:19 AM APPLE SORTER Gender Identity Not on file Sexual Orientation Not on file documented as of this encounter Miscellaneous Notes * Telephone Encounter - Cherry Ruelas LPCC - 08/09/2016 8:53 AM CST Received voicemail from patient stating she will not be returning to [facility] program in order to pursue programming at [facility]. AMBER León, [facility] 08/09/2016 E SORTER * Telephone Encounter - Cherry Ruelas LPC - 08/08/2016 8:26 AM CST Received voicemail from patient stating she would not be in program due to appointments. She statedshe would call insurance writer to provide update on sober housing appointment. AMBER León, [facility] 08/08/2016 E SORTER * Telephone Encounter - Catrachita Grimm - 06/29/2016 9:36 AM CST ----- Message from Meliton Rodriguez LP sent at 06/29/2016 9:24 AM APPLE SORTER ----- Regarding: start [facility] Hello, Pt has a planned start of 07/01/2016 in the 11am track of [facility] IOP. Pt has [facility] insurance. Please request 48 sessions from 07/01-09/29/16. Thank you, Meliton Rodriguez MA [facility] E SORTER * Telephone Encounter - Mounika Garcia - 06/20/2016 12:07 PM CST Client saw a therapist today for the first time at [facility]. Name is Harrison Calvert. Also sees [...] requested. ROBERTO verified. Referred to day tx. E SORTER documented in this encounter Plan of Treatment Not on file documented as of this encounter Visit Diagnoses Not on filedocumented in this encounter Additional Health Concerns Assessment Noted Time PHQ-9 Depression Total Score: 20 017 7:10 AM APPLE SORTER documented as of this encounter Care Teams Workers' Compensation Claims Supervisor Relationship Specialty Start Date End Date Dana Crook MD [address] [place] [address] PCP - General Internal Medicine 05/23/16 02/24/17 Unknown, Provider PCP - General 02/25/17 03/10/17 Dana Crook MD [address] [place] [address] PCP - Assigned PCP 03/24/16 08/14/18 No Ref-Primary, Physician PCP - General 03/12/19 03/21/19 Shabana Fu MD [facility] & [address] [address] PCP - General Family Practice 03/22/19 03/22/[address] [address] PCP - General 03/23/20 Oz Matias MSW [employer] 12/16/16 01/15/17 Dana Crook MD [address] [place] [address] Assigned PCP 03/24/16 09/07/19 documented as of this encounter
[2024-06-29 11:30] LABS: Anion Gap 9 mEq/L (7-15); Bilirubin Total* 0.5 mg/dL (0.1-1.5); Carbon Dioxide* 24 mmol/L (20-32); Creatinine* 0.9 mg/dL (0.5-1.5); Est. Creatinine Clearance* 59.15; Estimated Glomerular Filt Rate 78 ml/min
[2024-06-29 11:31] LABS: Alanine Aminotransferase* 28 U/L (4-35); Alkaline Phosphatase* 121 U/L (40-150); Aspartate Amino Transferase* 36 U/L (12-35); Blood Urea Nitrogen* 15 mg/dL (7-30); Calcium* 9.2 mg/dL (8.4-10.6); Glucose* 120 mg/dL (60-115); Total Protein* 7.1 g/dL (6.0-8.3)
[2024-06-29 11:33] LABS: Slide Review Reflex No
--- NOTE | 2024-06-29 11:45 | ED_ITS ---
HPI - Fever General Chief Complaint: Fever Stated Complaint: Fever, sore throat, headache Time Seen by Provider: 06/29/24 10:34 History of Present Illness HPI Narrative: Patient is a 49-year-old woman with a complex history including pancreatic cancer status post Whipple procedure and splenectomy who presents with cough fever congestion malaise and fatigue. She has no urinary symptoms no abdominal pain no diarrhea no chest pain shortness a breath is mild and she does saturate well on room air. She has been taking Tylenol with limited success. She has not measured high fever and comes in afebrile today. She has been sick for the past 18 hours. Related Data Home Medications ?Medication ?Instructions ?Recorded ?Confirmed temazepam 15 mg capsule 15 mg PO QHS PRN 04/22/22 06/29/24 aripiprazole 30 mg tablet 30 mg PO DAILY 03/18/24 06/29/24 bupropion HCl 300 mg 24 hr tablet, 300 mg PO DAILY 03/18/24 06/29/24 extended release cholecalciferol (vitamin D3) 25 25 mcg PO DAILY 03/18/24 06/29/24 mcg (1,000 unit) capsule (Vitamin D3) Previous Rx's ?Medication ?Instructions ?Recorded ondansetron 8 mg disintegrating 8 mg PO TID PRN nausea and 05/08/23 tablet vomiting #20 tabs iron,carbonyl 65 mg-vitamin C 125 1 tab PO DAILY #90 tabs 11/13/23 mg tablet,delayed release (Vitron-C) [id number] 4 - 5 cap PO TID #600 caps 12/18/23 12,000-38,000-60,000 unit capsule,delayed rel (Creon) gabapentin 300 mg capsule 300 mg PO TID #90 caps 05/23/24 oxycodone 10 mg tablet,crush 10 mg PO BID #60 tabs 06/06/24 resistant,extended release 12 hr (OxyContin) furosemide 20 mg tablet 20 mg PO DAILY #90 tabs 06/27/24 spironolactone 50 mg tablet 100 mg (2 x 50 mg) PO QDAY #180 06/27/24 tabs oseltamivir 75 mg capsule (Tamiflu) 75 mg PO BID 5 days #10 caps 06/29/24 Allergies Allergy/AdvReac Type Severity Reaction Status Date / Time aspirin Allergy Intermediate GI bleed Verified 06/29/24 10:31 lidocaine Allergy Mild burn and Verified 06/29/24 10:31 itch melatonin Allergy Unknown Unknown Verified 06/29/24 10:31 trazodone Allergy Unknown Unknown Verified 06/29/24 10:31 NSAIDS (Non-Steroidal AdvReac Severe bleeding Verified 06/29/24 10:31 Anti-Inflamma Review of Systems Status of ROS Reports: 10 or more systems reviewed and unremarkable except as noted in History and below PFSH [facility] Medical History Mixed hyperlipidemia ?E78.2 - Mixed hyperlipidemia (ICD-10) Primary hypertension ?I10 - Essential (primary) hypertension (ICD-10) Major depression, recurrent ?F33.9 - Major depressive disorder, recurrent, unspecified (ICD-10) Nicotine dependence ?F17.200 - Nicotine dependence, unspecified, uncomplicated (ICD-10) Chronic dental pain ?K08.9 - Disorder of teeth and supporting structures, unspecified (ICD-10) ?G89.29 - Other chronic pain (ICD-10) Postmenopausal bleeding ?N95.0 - Postmenopausal bleeding (ICD-10) Secondary thrombocytosis ?D75.838 - Other thrombocytosis (ICD-10) Posttraumatic stress disorder (06/21/16) ?F43.10 - Post-traumatic stress disorder, unspecified (ICD-10) Menorrhagia ?N92.0 - Excessive and frequent menstruation with regular cycle (ICD-10) Lymphedema ?I89.0 - Lymphedema, not elsewhere classified (ICD-10) Infection due to severe acute respiratory syndrome coronavirus 2 (SARS-CoV-2) ?U07.1 - COVID-19 (ICD-10) History of adenomatous polyp of colon ?Z86.010 - Personal history of colonic polyps (ICD-10) Hepatic encephalopathy (04/04/21) ?K72.90 - Hepatic failure, unspecified without coma (ICD-10) Gastrointestinal hemorrhage ?K92.2 - Gastrointestinal hemorrhage, unspecified (ICD-10) Bipolar I disorder (01/16/18) ?F31.9 - Bipolar disorder, unspecified (ICD-10) Anxiety ?F41.9 - Anxiety disorder, unspecified (ICD-10) Anemia ?D64.9 - Anemia, unspecified (ICD-10) Alcohol dependence in remission ?F10.21 - Alcohol dependence, in remission (ICD-10) Abdominal ascites ?R18.8 - Other ascites (ICD-10) Acute GI bleeding ?K92.2 - Gastrointestinal hemorrhage, unspecified (ICD-10) Hepatitis C infection ?B19.20 - Unspecified viral hepatitis C without hepatic coma (ICD-10) Pancreatic cancer ?C25.9 - Malignant neoplasm of pancreas, unspecified (ICD-10) Cirrhosis ?K74.60 - Unspecified cirrhosis of liver (ICD-10) Chronic abdominal pain ?R10.9 - Unspecified abdominal pain (ICD-10) ?G89.29 - Other chronic pain (ICD-10) Surgical History History of Whipple procedure (04/10/21) ?Z90.410 - Acquired total absence of pancreas (ICD-10) ?Z90.49 - Acquired absence of other specified parts of digestive tract (ICD- 10) History of pancreatic surgery (09/2019) ?Z98.890 - Other specified postprocedural states (ICD-10) History of pancreatectomy ?Z90.410 - Acquired total absence of pancreas (ICD-10) Hx of tympanostomy tubes ?Z98.890 - Other specified postprocedural states (ICD-10) H/O hernia repair ?Z98.890 - Other specified postprocedural states (ICD-10) ?Z87.19 - Personal history of other diseases of the digestive system (ICD-10) History of tonsillectomy ?Z90.89 - Acquired absence of other organs (ICD-10) History of tubal ligation ?Z98.51 - Tubal ligation status (ICD-10) Family History Brother Colon cancer, Onset Age: 20 Aunt Breast cancer Mother High blood pressure Other Diabetes Melanoma Social History (Updated 04/30/24 @ 13:58 by Mindy Barrios ~ [facility], [facility]) Narrative: Does not drink alcohol Does not have regular exercise regimen 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, 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[email or web address], 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 Tobacco use- 10 cig/day, hx 30 pack years What is your current living situation?: I presently have a place to live Problems where you live: no known problems In the past 12 months, utilities in danger of being shut off: no In past 12 months, lack of transportation kept you from medical appts, meetings, work, or getting things needed for daily living: no In the past 12 mos, have been you worried that your food would run out before you had money to buy more?: often true In the past 12 mos, the food you bought just didn't last and you didn't have money to buy more?: often true Smoking Status: Never smoker Do you use any of these nicotine containing products: Vaping Products Second hand tobacco smoke exposure: No How often do you have a drink containing alcohol: never How often do you have six or more drinks on one occasion: Never AUDIT-C Alcohol total score: 0 Non-prescribed substance use: denies use How often does anyone, including family, friends and others, physically hurt you : never How often does anyone, including family, friends and others, insult or talk down to you: fairly often How often does anyone, including family, friends and others, threaten you with harm: never How often does anyone, including family, friends and others, scream or curse at you: sometimes service: No Health Related Social Needs: food insecurity (Z59.41) and Other personal risk factors, not elsewhere classified (Z91.89) Exam Narrative Exam Narrative: EXAM GENERAL: Patient appears chronically ill. EYES: No scleral icterus. ENT: Tympanic membranes and oropharynx normal. THYROID: no thyroid nodules or thyromegaly. LYMPH: No supraclavicular or cervical lymphadenopathy. SKIN: Visible skin seen during exam normal or with benign process only. EXT: No dependent lower extremity pedal edema. HEART: Regular rate and rhythm with no murmurs, rubs, or gallops. LUNGS: Clear to auscultation bilaterally with no crackles or wheezes. ABD: Soft, non tender, non distended. PSYCH: Good eye contact, speech is not pressured. Const Vital Signs, click to edit/add: Vital Signs - 24 hr 06/29/24 10:31 Temperature 98.4 F Pulse Rate [Pulse Oximeter] 89 Respiratory Rate 16 Blood Pressure [Right Upper Arm] 146/97 H Pulse Oximetry 96 Oxygen Delivery Method Room Air Course Course ED Course: Patient seen examined. Chest x-ray is unremarkable labs are reassuring with exception of influenza a on her nasal swab. This time her a complex past medical history is reviewed I do think is reasonable treated with Tamiflu 75 mg b.i.d. for the next 5 days she does not do well with anti-inflammatories but does well with Tylenol which we will continue to dose. She will advance her diet activity as tolerated rest to get plenty of fluids and follow-up with her primary physician as needed. Vital Signs Vital signs: Initial Vital Signs Temperature 98.4 F 06/29/24 10:31 Temperature Source Temporal Artery Scan 06/29/24 10:31 Pulse Rate 89 06/29/24 10:31 Respiratory Rate 16 06/29/24 10:31 Blood Pressure 146/97 H 06/29/24 10:31 Blood Pressure Mean 113 H 06/29/24 10:31 Blood Pressure Position Sitting 06/29/24 10:31 Pulse Oximetry 96 06/29/24 10:31 Oxygen Delivery Method Room Air 06/29/24 10:31 Vital Signs Temperature 98.4 F 06/29/24 10:31 Pulse Rate 89 06/29/24 10:31 Respiratory Rate 16 06/29/24 10:31 Blood Pressure 146/97 H 06/29/24 10:31 Pulse Oximetry 96 06/29/24 10:31 Oxygen Delivery Method Room Air 06/29/24 10:31 Temperature 98.4 F 06/29/24 10:31 Pulse Rate 89 06/29/24 10:31 Respiratory Rate 16 06/29/24 10:31 Blood Pressure 146/97 H 06/29/24 10:31 Pulse Oximetry 96 06/29/24 10:31 Oxygen Delivery Method Room Air 06/29/24 10:31 MDM - Fever MDM Narrative Medical decision making narrative: As above. Lab Data Labs: Lab Results 06/29/24 06/29/24 Range/Units 10:35 11:00 WBC 6.96 (4.50-11.00) K/uL RBC 4.70 (4.00-5.20) m/uL Hgb 13.2 (12.0-16.0) gm/dL Hct 40.3 (33.0-51.0) % MCV 86 (80-100) fL MCH 28 (26-34) pg MCHC 33 (32-36) gm/dL RDW Coeff of Fabio 18.6 H (11.5-15.5) % Plt Count 321 (140-440) K/uL Neut % (Auto) 61.1 (42.0-72.0) % Lymph % (Auto) 26.7 (20-44) % [place] % (Auto) 11.6 H (0.0-11.0) % Eos % (Auto) 0.1 (0.0-7.0) % Baso % (Auto) 0.4 (0.0-3.0) % Neut # (Auto) 4.24 (1.7-7.0) K/uL Lymph # (Auto) 1.86 (0.90-2.90) K/uL [place] # (Auto) 0.80 (0.00-0.90) K/UL Eos # (Auto) 0.01 (0.00-0.50) K/uL Baso # (Auto) 0.03 (0.00-0.30) K/uL Abs Immat Gran (auto) 0.01 (0.00-0.30) K/uL Imm/Tot Granulo (auto) 0.1 % Sodium 136 (135-149) mmol/L Potassium 3.9 (3.6-5.1) mmol/L Chloride 103 (96-114) mmol/L Carbon Dioxide 24 (20-32) mmol/L Anion Gap 9 (7-15) mEq/L BUN 15 (7-30) mg/dL Creatinine 0.9 (0.5-1.5) mg/dL Estimated Creat Clear 59.15 Estimated GFR 78 ml/min Glucose 120 H (60-115) mg/dL Calcium 9.2 (8.4-10.6) mg/dL Total Bilirubin 0.5 (0.1-1.5) mg/dL AST 36 H (12-35) U/L ALT 28 (4-35) U/L Alkaline Phosphatase 121 (40-150) U/L Total Protein 7.1 (6.0-8.3) g/dL Albumin 4.2 (3.3-5.0) g/dL SARS-CoV-2 (PCR) Negative SARS-CoV-2 (Negative) Influenza Type A (PCR) POSITIVE PCR FLU A A (Negative) Influenza Type B (PCR) Negative PCR FLU B (Negative) RSV (PCR) Negative PCR RSV (Negative) Discharge Plan Discharge Clinical Impression: Influenza A Patient Disposition: Home, Self-Care Condition: Stable Instructions: Influenza (ED) Additional Instructions: Tamiflu as directed Tylenol Rest Fluids Activity Level: No Restrictions Discharge Diet: Regular Prescriptions: New oseltamivir [Tamiflu] 75 mg capsule 75 mg PO BID 5 Days Qty: 10 0RF No Action aripiprazole 30 mg tablet 30 mg PO DAILY bupropion HCl 300 mg tablet extended release 24 hr 300 mg PO DAILY cholecalciferol (vitamin D3) [Vitamin D3] 25 mcg (1,000 unit) capsule 25 mcg PO DAILY temazepam 15 mg capsule 15 mg PO QHS PRN ondansetron 8 mg tablet,disintegrating 8 mg PO TID PRN (Reason: nausea and vomiting) Qty: 20 1RF Vitron-C 65 mg iron- 125 mg tablet,delayed release (DR/EC) 1 tab PO DAILY Qty: 90 1RF Creon 12,000-38,000 -60,000 unit capsule,delayed release(DR/EC) 4 - 5 cap PO TID Qty: 600 0RF Rx Instructions: administer with meals and/or snacks gabapentin 300 mg capsule 300 mg PO TID Qty: 90 5RF oxycodone [OxyContin] 10 mg tablet,oral only,ext.rel.12 hr 10 mg PO BID Qty: 60 0RF Rx Instructions: OK to fill a couple days early due to travel spironolactone 50 mg tablet 100 mg PO QDAY Qty: 180 0RF furosemide 20 mg tablet 20 mg PO DAILY Qty: 90 0RF Follow Up/Referrals: Efrain Cortes MD [Primary Care Provider] - Stand Alone Forms: [employer] Info Instructions
[2024-06-29 12:03] VITALS: BP 146/97; PULSE 89; RESP 16; TEMP 36.9
== END 2024-06-29 12:05 | disposition home or self-care (01) ==
PROVIDERS: Emergency Provider Internal Medicine; PCP Family Medicine
DX: J10.1 Influenza due to other identified influenza virus with other respiratory manifestations (principal)
CPT/HCPCS: 36415; 71046; 80053; 85025; 87631; 99283; 99284

== ENCOUNTER 2024-08-19 08:38 | Outpatient (CLI) | payer MEDICAID, SELFPAY ==
[2024-08-19 09:47] LABS: Basophils Absolute Auto 0.05 K/uL (0.00-0.30); Basophils Percent Auto 0.8 % (0.0-3.0); Eosinophils Absolute Auto 0.25 K/uL (0.00-0.50); Eosinophils Percent Auto 3.8 % (0.0-7.0); Hemoglobin* 12.2 gm/dL (12.0-16.0); Lymphocytes Absolute Auto 1.81 K/uL (0.90-2.90); Lymphocytes Percent Auto 27.8 % (20-44); Mean Corpuscular HGB Conc 32 gm/dL (32-36); Mean Corpuscular Hemoglobin 30 pg (26-34); Mean Corpuscular Volume 95 fL (80-100); Monocytes Percent Auto 7.8 % (0.0-11.0); Neutrophils Percent Auto 59.8 % (42.0-72.0); Platelet Count* 369 K/uL (140-440); RDW Coefficient of Variation % 15.6 % (11.5-15.5); Red Blood Count 4.01 m/uL (4.00-5.20); White Blood Count* 6.52 K/uL (4.50-11.00)
[2024-08-19 09:53] LABS: Albumin* 3.9 g/dL (3.3-5.0); Chloride* 103 mmol/L (96-114); Potassium* 3.4 mmol/L (3.6-5.1); Sodium* 138 mmol/L (135-149)
[2024-08-19 09:56] LABS: Alanine Aminotransferase* 17 U/L (4-35); Alkaline Phosphatase* 117 U/L (40-150); Anion Gap 6 mEq/L (7-15); Aspartate Amino Transferase* 24 U/L (12-35); Bilirubin Total* 0.7 mg/dL (0.1-1.5); Blood Urea Nitrogen* 14 mg/dL (7-30); Carbon Dioxide* 29 mmol/L (20-32); Creatinine* 0.9 mg/dL (0.5-1.5); Estimated Glomerular Filt Rate 78 ml/min; Glucose* 102 mg/dL (60-115); Slide Review Reflex No; Total Protein* 6.6 g/dL (6.0-8.3)
[2024-08-19 09:57] LABS: Calcium* 9.2 mg/dL (8.4-10.6)
[2024-08-19 10:31] LABS: Iron* 72 ug/dL (37-170)
[2024-08-19 10:32] LABS: Ferritin* 42.1 ng/mL (11.1-264.0)
[2024-08-19 10:41] LABS: Percent Iron Saturation 25 % (20-50); Total Iron Binding Capacity 289 ug/dL (265-497)
[2024-08-20 10:02] LABS: Cancer Antigen-GI (CA 19-9) <2 U/mL (<=35)
== END 2024-08-19 08:39 | disposition home or self-care (01) ==
LOC: CT 08:39
PROVIDERS: PCP Family Medicine; Visit Provider Internal Medicine Hematology & Oncology
DX: C25.0 Malignant neoplasm of head of pancreas (principal); K76.9 Liver disease, unspecified
CPT/HCPCS: 36415; 71260; 74177; 80053; 82728; 83540; 83550; 85025; 86301; Q9967

== ENCOUNTER 2024-08-27 10:00 | Outpatient (CLI) | payer MEDICAID, SELFPAY ==
--- NOTE | 2024-08-27 10:15 | CRLHL7_ITS ---
For Patients: As a result of the Cures Act, medical imaging exams and procedure reports are released immediately into your electronic medical record. You may view this report before your referring provider. If you have questions, please contact your health care provider. BILATERAL SCREENING MAMMOGRAM WITH COMPUTER-AIDED DETECTION AND TOMOSYNTHESIS TECHNIQUE: CC and MLO views were obtained. These mammographic images have been obtained using full-field digital technique. These mammographic images were interpreted with the benefit of computer-aided detection. Breast Tomosynthesis was used in this interpretation. COMPARISON FILM: 07/29/22, 09/11/20. FINDINGS: The breasts are heterogeneously dense, which may obscure small masses IMPRESSION: There is no radiographic evidence for malignancy. ASSESSMENT: BI-RADS Category 2: Benign RECOMMENDATION: Routine screening mammogram in 1 year. A lay language report of this examination will be provided to the patient. Efrain Hall M.D. Diagnostic Radiologist [email or web address] Transcribed: 3:13 [email or web address].ruy lopez/Dictated by: Efrain Hall MD @ 08/27/2024 10:49:00 AM (Electronically Signed)
== END 2024-08-27 10:01 | disposition home or self-care (01) ==
PROVIDERS: PCP Family Medicine; Visit Provider Family Medicine
DX: Z12.31 Encounter for screening mammogram for malignant neoplasm of breast (principal); R92.333 Mammographic heterogeneous density, bilateral breasts
CPT/HCPCS: 77063; 77067

== ENCOUNTER 2024-09-05 15:55 | Outpatient (CLI) | payer MEDICAID, SELFPAY ==
--- NOTE | 2024-09-05 17:00 | CRLHL7_ITS ---
For Patients: As a result of the 21st Century Cures Act, medical imaging exams and procedure reports are released immediately into your electronic medical record. You may view this report before your referring provider. If you have questions, please contact your health care provider. EXAM: FDG PET-CT Skull Base to Thighs CLINICAL INFORMATION: 49-year-old woman with history of pancreatic cancer. Subsequent treatment response. TECHNIQUE: Radiopharmaceutical: 18F-fluorodeoxyglucose (18F-FDG) Dose: 13.8 MilliCurie. Blood glucose: 70 mg/dL. Image acquisition: At approximately 60 minutes following IV tracer administration via a right antecubital vein, positron emission tomography was performed from the skull base through the mid thigh. Non-contrast low-dose helical CT imaging was performed over the same range without breath-hold for attenuation correction of PET images and anatomic correlation; it is neither sufficient, nor should it be substituted for diagnostic purposes. COMPARISON: CT chest, abdomen and pelvis 08/19/2024. FINDINGS: Mediastinal blood pool FDG uptake: SUVMax 3.0 (Image 138) Liver background parenchymal FDG uptake: SUVMax 3.3 (image 142) HEAD AND NECK: No abnormal FDG uptake in the imaged head and neck. CHEST: Ports and devices: None. Lungs: No abnormal FDG uptake. Pleura: No abnormal FDG uptake. Thoracic lymph Nodes: Moderately FDG avid 0.8 X 0.7 Cm right subpectoral node SUVMax 4.5 (Image 86). Faintly FDG avid nonenlarged right axillary nodes with uptake below blood pool are nonspecific and within physiologic variation, for example a 1.9 x 0.5 cm right axillary node SUVMax 2.5 (image 86). Mediastinum: No abnormal FDG uptake. Coronary artery calcifications. Atherosclerotic calcifications of the thoracic aorta. Breasts/Chest Wall: No abnormal FDG uptake. ABDOMEN/PELVIS: Liver/biliary system/Bowel/Pancreas: Prior Whipple and distal pancreatectomy. Fatty liver. Circumferential wall thickening and intense in the stomach proximal to the gastrojejunostomy junction is favored to be physiologic SUVMax 9.4 (image 171). No focal increased FDG uptake in the liver; no definite correlate on FDG PET-CT for the hepatic lesion visualized on noncontrast CT. FDG uptake in the small and large bowel loops is within physiologic variation. No abnormal increased FDG uptake in the biliary system or pancreas. Spleen: Absent. Adrenal Glands: No abnormal FDG uptake. Kidneys: No abnormal FDG uptake. Punctate non-obstructive 0.4 cm calyceal stone in the left kidney. Mesentery, Omentum and Peritoneum: No abnormal focal increased FDG uptake. The previously visualized discrete appearing mesenteric nodules are not seen on this study. Findings are compatible with interval shifting mesenteric fluid/ascites. Faint FDG uptake at scattered mesenteric nodules, subcentimeter in short axis, is within physiologic variation, for example a 1.0 x 0.5 cm left paramedian mesenteric nodule SUVMax 2.2 (Image 186). Mild to moderate mesenteric ascites with the most prominent fluid collection in the left upper abdomen. Atherosclerotic calcifications. Pelvic Organs: No abnormal FDG uptake. Multilobulated uterus likely representing uterine fibroids. Abdominopelvic lymph Nodes: No abnormal FDG uptake. Musculoskeletal: No abnormal FDG uptake. Multilevel degenerative changes in the spine. IMPRESSION: 1. Prior Whipple and distal pancreatectomy. No evidence of metabolically active locally recurrent or metastatic disease. 2. Mild to moderate mesenteric ascites. The previously visualized discrete appearing mesenteric nodules are not seen on this study. Findings are compatible with interval shifting mesenteric fluid, and unlikely to represent metabolically active mesenteric metastatic lesions. 3. No discrete correlate for the previously visualized lesion in the liver on the prior contrast CT. If clinically indicated, this can be additionally assessed with liver MRI with contrast. 4. Moderately FDG avid right subpectoral node, subcentimeter in short axis, is nonspecific, but favored to be inflammatory or related to tracer injection in the right antecubital fossa. Correlate with history for any recent vaccination in the right shoulder or right arm. Dictated by Shreyas Johnson MD @ 09/06/2024 12:43:42 PM (Electronically Signed)
== END 2024-09-05 15:56 | disposition home or self-care (01) ==
LOC: RAD 15:56
PROVIDERS: PCP Family Medicine; Visit Provider Internal Medicine Hematology & Oncology
DX: C25.0 Malignant neoplasm of head of pancreas (principal); K76.9 Liver disease, unspecified; R59.0 Localized enlarged lymph nodes
CPT/HCPCS: 78815; A9552

== ENCOUNTER 2024-11-07 17:17 | Outpatient (REF) | payer MEDICAID, SELFPAY | END 2024-11-07 17:18 | disposition home or self-care (01) | LOC: NPINS 17:17 | PROVIDERS: PCP Family Medicine; Visit Provider Internal Medicine Hematology & Oncology | DX: C25.0 Malignant neoplasm of head of pancreas (principal) | CPT/HCPCS: 82653 ==

== ENCOUNTER 2025-01-01 13:56 | Outpatient (CLI) | payer MEDICAID, SELFPAY ==
--- NOTE | 2025-01-01 15:00 | CRLHL7_ITS ---
For Patients: As a result of the Century Cures Act, medical imaging exams and procedure reports are released immediately into your electronic medical record. You may view this report before your referring provider. If you have questions, please contact your health care provider. INDICATION: Pancreatic carcinoma; status post distal pancreatectomy, splenectomy and Whipple procedure; follow-up. COMPARISON: CT chest, abdomen and pelvis with intravenous contrast August 19, 2024 and March 25, 2024; PET-CT September 05, 2024. TECHNIQUE: CT chest, abdomen and pelvis with intravenous contrast; coronal and sagittal reformats; maximum intensity projections; 74 cc of Isovue-300 contrast was injected IV. FINDINGS: No abnormal mediastinal or hilar lymphadenopathy. Normal size cardiac silhouette without any pericardial effusion. No abnormal intra pulmonary nodular densities are identified. No evidence of pleural effusion or chest wall pathology. Status post Whipple procedure and cholecystectomy. Status post distal pancreatectomy and splenectomy. The pancreatic remnant is unremarkable. Fatty infiltration of the liver. Possible occlusion of the superior mesenteric vein with collateral venous channels identified in the upper abdomen cause of the congestion of the mesentery. Resolution of the previously noted abdominal ascites when compared to August 19, 2024. Subtle thickening of the peritoneal lining without any obvious nodularity. No renal pathology. Kidneys are unremarkable. No retroperitoneal lymphadenopathy. Fibroid uterus. IMPRESSION: 1. Status post distal pancreatectomy, splenectomy and Whipple procedure. 2. 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 Stable sub cm mesenteric lymph nodes. 4. No convincing evidence of peritoneal carcinomatosis. 5. Resolution of the abdominal ascites when compared to the previous CT. 6. Fibroid uterus. 7. Fatty infiltration of the liver. 8. Negative chest CT. Please note that all CT scans at this facility use dose modulation, iterative reconstruction, and/or weight-based dosing when appropriate to reduce radiation dose to as low as reasonably achievable. Dictated by Naun Galdamez MD @ 01/06/2025 11:28:31 AM (Electronically Signed)
== END 2025-01-01 13:57 | disposition home or self-care (01) ==
LOC: CT 13:57
PROVIDERS: PCP Family Medicine; Visit Provider Internal Medicine Hematology & Oncology
DX: C25.9 Malignant neoplasm of pancreas, unspecified (principal); K55.059 Acute (reversible) ischemia of intestine, part and extent unspecified
CPT/HCPCS: 71260; 74177; Q9967

== ENCOUNTER 2025-01-15 15:41 | Outpatient (CLI) | payer MEDICAID, SELFPAY ==
[2025-01-15 15:58] LABS: Hematocrit 37.4 % (33.0-51.0); Hemoglobin* 11.9 gm/dL (12.0-16.0); Immature Granulocytes Abs Auto 0.02 K/uL (0.00-0.30); Immature Granulocytes Pct Auto 0.2 %; Lymphocytes Absolute Auto 3.06 K/uL (0.90-2.90); Mean Corpuscular HGB Conc 32 gm/dL (32-36); Mean Corpuscular Hemoglobin 29 pg (26-34); Mean Corpuscular Volume 92 fL (80-100); RDW Coefficient of Variation % 14.8 % (11.5-15.5); Red Blood Count 4.05 m/uL (4.00-5.20); White Blood Count* 8.05 K/uL (4.50-11.00)
[2025-01-15 15:59] LABS: Slide Review Reflex No
[2025-01-15 16:18] LABS: Chloride* 103 mmol/L (96-114); INR 1.00 (0.91-1.10); Prothrombin Time 14.0 Seconds
[2025-01-15 16:19] LABS: Albumin* 4.2 g/dL (3.3-5.0); Potassium* 3.8 mmol/L (3.6-5.1); Sodium* 140 mmol/L (135-149)
[2025-01-15 16:21] LABS: Blood Urea Nitrogen* 15 mg/dL (7-30); Creatinine* 1.2 mg/dL (0.5-1.5); Estimated Glomerular Filt Rate 55 ml/min
[2025-01-15 16:22] LABS: Alanine Aminotransferase* 18 U/L (4-35); Alkaline Phosphatase* 91 U/L (40-150); Anion Gap 9 mEq/L (7-15); Aspartate Amino Transferase* 30 U/L (12-35); Bilirubin Total* 0.9 mg/dL (0.1-1.5); Calcium* 9.8 mg/dL (8.4-10.6); Carbon Dioxide* 28 mmol/L (20-32); Glucose* 100 mg/dL (60-115); Total Protein* 6.9 g/dL (6.0-8.3)
[2025-01-15 16:48] LABS: Iron* 122 ug/dL (37-170)
[2025-01-15 16:57] LABS: Percent Iron Saturation 42 % (20-50); Total Iron Binding Capacity 292 ug/dL (265-497)
== END 2025-01-15 15:42 | disposition home or self-care (01) ==
LOC: LAB 15:43
PROVIDERS: PCP Family Medicine; Visit Provider Internal Medicine Hematology & Oncology
DX: C25.0 Malignant neoplasm of head of pancreas (principal); K74.69 Other cirrhosis of liver; K90.9 Intestinal malabsorption, unspecified; D50.0 Iron deficiency anemia secondary to blood loss (chronic)
CPT/HCPCS: 36415; 80053; 82728; 83540; 83550; 85025; 85610; 85730

== ENCOUNTER 2025-02-18 14:35 | Outpatient (CLI) | payer MEDICAID, SELFPAY ==
--- NOTE | 2025-02-18 15:00 | CRLHL7_ITS ---
For Patients: As a result of the Century Cures Act, medical imaging exams and procedure reports are released immediately into your electronic medical record. You may view this report before your referring provider. If you have questions, please contact your health care provider. 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 COMPARISON: CT abdomen and pelvis with intravenous contrast March 25, 2024, August 19, 2024 and January 01, 2025. TECHNIQUE: CT abdomen and pelvis with intravenous contrast during arterial and venous phase imaging; coronal and sagittal reformats; maximum intensity projections; 98 cc of Isovue-370 contrast was injected IV. FINDINGS: No nodules through the lung bases. No evidence of pleural effusion. Normal size cardiac silhouette without any evidence of pericardial effusion. No focal hepatic pathology. Status post splenectomy and distal pancreatectomy as well as Whipple procedure. 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 Remainder of the pancreas is unremarkable. Status post cholecystectomy. No adrenal pathology. Kidneys are unremarkable. Fibroid uterus. Small amount of fluid identified in the left upper quadrant of the abdomen; new compared to 01/01/2025. The celiac axis artery is unremarkable. 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 Impression: 1. 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 2. 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 3. Small amount of fluid identified within the peritoneal cavity in the left upper quadrant of the abdomen; new since 01/01/2025; close follow-up is needed to rule out reoccurrence of peritoneal carcinomatosis. 4. Status post distal pancreatectomy and splenectomy and Whipple procedure. 5. Fibroid uterus. Please note that all CT scans at this facility use dose modulation, iterative reconstruction, and/or weight-based dosing when appropriate to reduce radiation dose to as low as reasonably achievable. Dictated by Naun Galdamez MD @ 02/21/2025 1:35:17 PM (Electronically Signed)
== END 2025-02-18 14:36 | disposition home or self-care (01) ==
LOC: CT 14:36
PROVIDERS: PCP Family Medicine; Visit Provider Family Medicine
DX: K55.069 Acute infarction of intestine, part and extent unspecified (principal); D25.9 Leiomyoma of uterus, unspecified
CPT/HCPCS: 74174; Q9967